=== PATIENT | female | born 1990 | race Two or more races ===

== ENCOUNTER 2024-03-07 10:47 | Emergency (ER) | payer MEDICAID, SELFPAY ==
[2024-03-07 11:00] VITALS: BP 115/74; PULSE 105; PULSE 83; RESP 18; TEMP 36.8; O2SAT 100; BMI 27.1
--- NOTE | 2024-03-07 11:15 | PD.EDRME ---
Rapid Medical Screening Exam RME Arrival date/time: 03/07/24 10:47 33-year-old female presents emergency department complaints of dizziness and a sensation of the world spinning patient reports this happened to her in the past Chief Complaint: Dizziness Time Seen by Provider: 03/07/24 11:47 Vital signs: Vital Signs Temperature 98.2 F 03/07/24 11:00 Pulse Rate 83 03/07/24 11:00 Respiratory Rate 18 03/07/24 11:00 Blood Pressure 115/74 03/07/24 11:00 Pulse Oximetry (%) 100 03/07/24 11:00 Oxygen Delivery Method Room Air 03/07/24 11:00
[2024-03-07] MEDS: MECLIZINE HCL 25 MG TABLET 50 MG PO (11:19)
[2024-03-07 11:51] LABS: Basophils % (Auto) 0 % (0-2.5); Eosinophils # (Auto) 0.1 Thou/mm3 (0.0-0.5); Eosinophils % (Auto) 2 % (0-10); Hematocrit 38.6 % (36.0-46.0); Hemoglobin 12.3 g/dL (12.0-16.0); Immature Granulocytes % (Auto) 0 % (0-0); Immature Granulocytes Auto 0.01 Thou/mm3 (0.00-0.00); Lymphocytes # (Auto) 1.5 Thou/mm3 (1.0-4.8); Lymphocytes % (Auto) 29 % (10-50); Mean Corpuscular HGB Conc 31.9 g/dl (31.0-37.0); Mean Corpuscular Hemoglobin 25.1 pg (25.0-35.0); Mean Corpuscular Volume 79 fL (80-100); Monocytes # (Auto) 0.3 Thou/mm3 (0.0-0.8); Monocytes % (Auto) 6 % (0-12); Neutrophils # (Auto) 3.3 Thou/mm3 (1.8-7.7); Neutrophils % (Auto) 63 % (37-80); Nucleated Red Blood Cell % 0 /100 WBC (0); Platelet Count 229 Thou/mm3 (140-440); RDW Standard Deviation 38.9 fL (36.4-46.3); Red Blood Count 4.91 Miln/mm3 (4.00-5.20); White Blood Count 5.2 Thou/mm3 (3.6-11.0)
--- NOTE | 2024-03-07 12:00 | EDNOTE_ITS ---
ED Dizzyness RME/HPI General Chief Complaint: Dizziness Stated Complaint: DIZZINESS; HX SEVERE VERTIGO Time Seen by Provider: 03/07/24 11:47 Arrival date/time: 03/07/24 10:47 RME / HPI RME / HPI Narrative: 33-year-old female presents emergency department complaints of dizziness and a sensation of the world spinning patient. Severity of symptoms moderate. Patient has been having this problem for more than 2 years, was seen by multiple specialist, and currently pending open MRI of the head and spine. Patient also complained of right-sided headache severity mild. She is also pending referral to [facility]. Related Data Home Medications ?Medication ?Instructions ?Recorded ?Confirmed albuterol sulfate 90 mcg/actuation 2 puff inhalation Q6H PRN 12/02/18 05/28/21 aerosol inhaler Shortness Of Breath Or Wheezing meclizine 25 mg tablet 25 mg PO BID PRN Dizziness 05/28/21 05/28/21 Previous Rx's ?Medication ?Instructions ?Recorded meclizine 50 mg tablet 50 mg PO BID PRN motion sickness 05/28/21 #14 tabs oxcarbazepine 300 mg tablet 300 mg PO BID #60 tabs 07/17/21 rizatriptan 10 mg disintegrating See Rx Instructions PO .COMPLEX 10/21/22 tablet (Maxalt-PLASTERER FOREMAN) #30 tabs meclizine 25 mg tablet 25 mg PO TID PRN dizziness #14 tabs 10/28/22 ondansetron 4 mg disintegrating 4 mg PO Q8H PRN nausea and 10/28/22 tablet vomiting #10 tabs meclizine 25 mg tablet 25 mg PO QDAY PRN dizziness #20 02/13/23 tabs meclizine 25 mg tablet 25 mg PO QDAY PRN dizziness #20 08/21/23 tabs ibuprofen 600 mg tablet 600 mg PO Q6H #30 tabs 11/01/23 ondansetron 4 mg disintegrating 4 mg PO Q6H PRN nausea and 11/01/23 tablet vomiting #14 tabs scopolamine base 1 mg over 3 days 1 mg topical .Q3Day #10 ea 03/07/24 transdermal patch (Transderm-Scop) Allergies Allergy/AdvReac Type Severity Reaction Status Date / Time ciprofloxacin Allergy Severe RASH Verified 11/28/23 22:02 Review of Systems Review of Systems Narrative Review of Systems: Review of system reviewed and within normal limits except mentioned in HPI ED Exam Narrative Physical exam: VITAL SIGNS: Reviewed. GENERAL APPEARANCE: Alert and interactive, follows commands, no acute distress, HEAD AND FACE: Non-traumatic. ENT: PERRL, pink conjunctivitis, eyelid no trauma, Mucous membrane moist. NECK: Supple, nontender, no nuchal rigidity. CHEST: No tenderness, no crepitus, no paradoxical movement, no retractions. LUNGS: Clear, well ventilated, symmetric, no rales, no wheezing, no ronchi, no stridor, good breath sounds bilaterally. HEART: Regular rate, regular rhythm, no murmur, no gallops. ABDOMEN: Soft, positive bowel sounds, nondistended, no guarding, nontender, no rebound, no masses, RECTAL: Deferred. GENITAL: Deferred. NEUROLOGICAL: Gross motor function intact sensory function intact, Appropriate for age. MUSCULOSKELETAL: low back nontender, full range of motion. EXTREMITIES: Nontender, full range of motion. SKIN: Color pink, dry, no rash, no lacerations, no abrasions, no contusions. LYMPHATICS: Deferred. Course Quality Measures none Orders Category Date Time Status CBC Stat Lab 03/07/24 11:22 Completed Comprehensive Metabolic Panel Stat Lab 03/07/24 11:22 Completed HCG Qualitative,Urine Stat Lab 03/07/24 13:08 Completed UA, C/S IF [Urinalysis, C/S if Indicated] Stat Lab 03/07/24 13:08 Completed Ibuprofen Tab [Motrin Tab] Med 03/07/24 11:59 Discontinued 600 mg PO X1 ONE Meclizine HCl [Antivert] Med 03/07/24 11:15 Discontinued 50 mg PO X1 ONE Scopolamine [Transderm-Scop Patch] Med 03/07/24 11:59 Discontinued 1 mg TOP X1 ONE Vital Signs Vital signs: Vital Signs Temperature 98.2 F 03/07/24 11:00 Pulse Rate 83 03/07/24 11:00 Respiratory Rate 18 03/07/24 11:00 Blood Pressure 115/74 03/07/24 11:00 Pulse Oximetry (%) 100 03/07/24 11:00 Oxygen Delivery Method Room Air 03/07/24 11:00 Dizziness MDM Narrative MDM Narrative:: 33-year-old female presents emergency department complaints of dizziness and a sensation of the world spinning patient. Severity of symptoms moderate. Patient has been having this problem for more than 2 years, was seen by multiple specialist, and currently pending open MRI of the head and spine. Patient also complained of right-sided headache severity mild. She is also pending referral to [facility]. Laboratory workup all came back unremarkable. Patient's was significant scopolamine patch with significant improvement of symptoms. Was also given meclizine. Patient was advised to closely follow-up with PCP in few days. Patient agrees with the plan. Patient does not need CT scan at this time, patient is thoroughly workup including MRI in the past. Which all came back unremarkable. Patient data External records reviewed:: None Clinical information provided by:: none Social determinants that could affect healthcare access:: none Patient has the following chronic illnesses:: History of chronic dizziness and vertigo How is presenting disease/condition affected by chronic disease/condition?: exacerbated by Evaluation data The following diagnostics were reviewed and interpreted by me:: lab results Lab and/or radiology exams considered but not ordered:: None Interpretation Summary: Laboratory workup came back normal, including normal urinalysis Medications / Prescriptions Medications or Prescriptions considered but not ordered:: None Medication administrations:: Medication Administration History Discontinued Medications Ibuprofen (Ibuprofen Tab 600 Mg Tablet) 600 mg PO X1 ONE Stop: 03/07/24 12:00 Last Admin: 03/07/24 12:44 Dose: 600 mg Documented By: POPEYE Meclizine HCl (Meclizine Hcl 25 Mg Tablet) 50 mg PO X1 ONE Stop: 03/07/24 11:16 Last Admin: 03/07/24 11:19 Dose: 50 mg Documented By: POPEYE Scopolamine (Scopolamine 1 Mg Tdsy) 1 mg TOP X1 ONE Stop: 03/07/24 12:00 Last Admin: 03/07/24 12:44 Dose: 1 mg Documented By: POPEYE Scopolamine, meclizine and Motrin Consultations Consultation(s) initiated? (list below): No Diagnosis Dizziness Differential Diagnosis: benign paroxysmal positional vertigo, cerebrovascular accident and other (Dizziness) Most likely diagnosis given after review of the tests above:: Dizziness Admission Indicated Admission indicated?: not indicated Explain why admission is indicated or not indicated:: Stable Admission Request Was there a request for admission?: No Disposition Plan Disposition Plan: Discharge Discharge Attestation Discharge Attestation: Patient condition: Stable Discharge Plan Plan Patient Disposition: HOME (Self Care) Disposition Comment: stable Prescriptions/Referrals Prescriptions/Med Rec: New scopolamine base [Transderm-Scop] 1 mg over 3 days patch 3 day 1 mg topical .Q3Day Qty: 10 0RF No Action albuterol sulfate 90 mcg/actuation HFA aerosol inhaler 2 puff INH Q6H PRN (Reason: Shortness Of Breath Or Wheezing) meclizine 25 mg Tablet 25 mg PO BID PRN (Reason: Dizziness) meclizine 50 mg tablet 50 mg PO BID PRN (Reason: motion sickness) Qty: 14 0RF oxcarbazepine 300 mg tablet 300 mg PO BID Qty: 60 0RF rizatriptan [Maxalt-PLASTERER FOREMAN] 10 mg tablet,disintegrating See Rx Instructions .ROUTE .COMPLEX Qty: 30 0RF Rx Instructions: take 1 tab at onset of headache; if no relief may repeat 1 tab after at least 2 hrs; max = 3 tabs/24 hr meclizine 25 mg tablet 25 mg PO QDAY PRN (Reason: dizziness) Qty: 20 0RF meclizine 25 mg tablet 25 mg PO QDAY PRN (Reason: dizziness) Qty: 20 0RF meclizine 25 mg tablet 25 mg PO TID PRN (Reason: dizziness) Qty: 14 0RF ondansetron 4 mg tablet,disintegrating 4 mg PO Q8H PRN (Reason: nausea and vomiting) Qty: 10 0RF ibuprofen 600 mg tablet 600 mg PO Q6H Qty: 30 0RF ondansetron 4 mg tablet,disintegrating 4 mg PO Q6H PRN (Reason: nausea and vomiting) Qty: 14 0RF Referrals: Sushila Valdez PA-C [Primary Care Provider] - In 1 week Problem List Clinical Impression: Dizziness Patient/Caregiver Discharge Instructions Discharge Activity: activity as tolerated Education Materials: ED Dizziness, Uncertain Cause Additional Instructions: Thank you for the opportunity for serving you today. You are stable for discharged . You are advised to: Follow-up with your PCP in 1 to 2 days Return to ED for worsening of symptoms Increase oral fluids Take medication as prescribed Print Language: Divehi Stand Alone Forms: Graciela Award Info., Patient Portal Info Letter ISABEL/JANEE Supervising Physician ISABEL/JANEE Supervising Physician: MD Kirk
[2024-03-07 12:12] LABS: Alanine Aminotransferase 12 U/L (10-49); Albumin/Globulin Ratio 1.6 (1.2-2.2); Alkaline Phosphatase 85 U/L (46-116); Anion Gap 10 (7-16); Aspartate Amino Transferase 19 U/L (0-34); BUN/Creatinine Ratio 17 Ratio (12-20); Bilirubin,Total 0.5 mg/dL (0.3-1.2); Blood Urea Nitrogen 12 mg/dL (9-23); Calcium 9.8 mg/dL (8.3-10.6); Calcium (Corrected) 9.8 mg/dL (8.5-10.1); Carbon Dioxide 24.3 mMol/L (20.0-31.0); Chloride 103 mMol/L (98-107); Creatinine (Component) 0.7 mg/dL (0.6-1.3); Globulin 3.1 gm/dL (2.3-3.5); Glucose 90 mg/dL (74-106); Osmolality,Calculated 273 (275-295); Potassium 3.9 mMol/L (3.4-5.1); Sodium 137 mMol/L (136-145); Total Protein 8.1 gm/dL (5.7-8.2); eGFR > 60 See Note
[2024-03-07] MEDS: SCOPOLAMINE 1 MG TDSY TOP (12:44)
[2024-03-07] MEDS: IBUPROFEN TAB 600 MG TABLET PO (12:44)
[2024-03-07 13:14] LABS: Collection Type, Urine Clean Catch
[2024-03-07 13:19] LABS: HCG Qualitative,Urine Negative
[2024-03-07 13:27] LABS: Bacteria,Urine Rare; Bilirubin,Urine Negative (Negative); Blood,Urine Trace (Negative); Clarity,Urine Clear (Clear/Hazy); Color,Urine Colorless (Lt Yel-Yel); Culture Indicated,Urine Not Indicated; Glucose, Urine Negative (Negative); Ketones,Urine Negative (Negative); Leukocyte Esterase,Urine Positive (Negative); Nitrite,Urine Negative (Negative); PH,Urine 7.5 (5.0-7.0); Protein,Urine Negative (Neg - Trace); RBC,Urine 1 /hpf (0-3); Specific Gravity,Urine 1.008 (1.001-1.035); Squamous Epithelial Cell,Urine 4 /hpf (0-5); Urobilinogen,Urine Negative mg/dL (0.0-1.0); WBC,Urine < 1 /hpf (0-5)
== END 2024-03-07 15:00 | disposition home or self-care (01) ==
PROVIDERS: Nurse Practitioner Primary Care; Emergency Provider Emergency Medicine; PCP Physician Assistant
DX: R42 Dizziness and giddiness (principal)
CPT/HCPCS: 36415; 80053; 81001; 81025; 85025; 99283; A9270

== ENCOUNTER 2024-04-02 12:20 | Emergency (ER) | payer MEDICAID, SELFPAY ==
[2024-04-02 12:21] VITALS: BMI 27.4
[2024-04-02 12:35] VITALS: BP 117/78; PULSE 85; RESP 17; TEMP 37.2; O2SAT 100
--- NOTE | 2024-04-02 12:42 | PD.EDRME ---
Rapid Medical Screening Exam RME Arrival date/time: 04/02/24 12:20 33-year-old female presents to the emergency department today for complaints of dizziness patient has multiple visits for dizziness in the past and patient has follow-up with her primary care doctor as well patient reports MRI is still pending patient reports that she is quite dizzy Chief Complaint: Dizziness Vital signs: Vital Signs Temperature 98.9 F 04/02/24 12:35 Pulse Rate 85 04/02/24 12:35 Respiratory Rate 17 04/02/24 12:35 Blood Pressure 117/78 04/02/24 12:35 Pulse Oximetry (%) 100 04/02/24 12:35 Oxygen Delivery Method Room Air 04/02/24 12:35
[2024-04-02] MEDS: MECLIZINE HCL 25 MG TABLET PO (12:46)
[2024-04-02] MEDS: ALPRazoLAM 0.25 MG TABLET PO (12:46)
[2024-04-02 13:17] LABS: Collection Type, Urine Clean Catch
[2024-04-02 13:29] LABS: Basophils % (Auto) 0 % (0-2.5); Eosinophils # (Auto) 0.1 Thou/mm3 (0.0-0.5); Eosinophils % (Auto) 1 % (0-10); Hematocrit 34.7 % (36.0-46.0); Hemoglobin 11.1 g/dL (12.0-16.0); Immature Granulocytes % (Auto) 1 % (0-0); Immature Granulocytes Auto 0.03 Thou/mm3 (0.00-0.00); Lymphocytes # (Auto) 1.3 Thou/mm3 (1.0-4.8); Lymphocytes % (Auto) 22 % (10-50); Mean Corpuscular Hemoglobin 24.9 pg (25.0-35.0); Mean Corpuscular Volume 78 fL (80-100); Monocytes # (Auto) 0.4 Thou/mm3 (0.0-0.8); Monocytes % (Auto) 6 % (0-12); Neutrophils # (Auto) 4.4 Thou/mm3 (1.8-7.7); Neutrophils % (Auto) 71 % (37-80); Nucleated Red Blood Cell % 0 /100 WBC (0); Platelet Count 196 Thou/mm3 (140-440); RDW Standard Deviation 38.9 fL (36.4-46.3); Red Blood Count 4.45 Miln/mm3 (4.00-5.20); White Blood Count 6.2 Thou/mm3 (3.6-11.0)
[2024-04-02 13:29] LABS: Bacteria,Urine Rare; Bilirubin,Urine Negative (Negative); Blood,Urine 2+ (Negative); Clarity,Urine Clear (Clear/Hazy); Color,Urine Lt-Yellow (Lt Yel-Yel); Culture Indicated,Urine Not Indicated; Glucose, Urine Negative (Negative); Hyaline Casts,Urine < 1 /hpf (0-1); Ketones,Urine Negative (Negative); Leukocyte Esterase,Urine Positive (Negative); Nitrite,Urine Negative (Negative); Protein,Urine Negative (Neg - Trace); RBC,Urine 14 /hpf (0-3); Specific Gravity,Urine 1.019 (1.001-1.035); Squamous Epithelial Cell,Urine 4 /hpf (0-5); Urobilinogen,Urine Negative mg/dL (0.0-1.0); WBC,Urine 3 /hpf (0-5)
[2024-04-02 13:33] LABS: HCG Qualitative,Urine Negative
[2024-04-02 13:54] LABS: Alanine Aminotransferase 11 U/L (10-49); Albumin, Serum 4.7 gm/dL (3.5-5.0); Albumin/Globulin Ratio 1.6 (1.2-2.2); Alkaline Phosphatase 81 U/L (46-116); Anion Gap 9 (7-16); Aspartate Amino Transferase 11 U/L (0-34); BUN/Creatinine Ratio 17 Ratio (12-20); Bilirubin,Total 0.4 mg/dL (0.3-1.2); Blood Urea Nitrogen 12 mg/dL (9-23); Calcium 9.4 mg/dL (8.3-10.6); Calcium (Corrected) 9.4 mg/dL (8.5-10.1); Carbon Dioxide 22.8 mMol/L (20.0-31.0); Chloride 105 mMol/L (98-107); Creatinine (Component) 0.7 mg/dL (0.6-1.3); Estimated Creatinine Clearance 111.6 mL/min (>60); Globulin 2.9 gm/dL (2.3-3.5); Glucose 95 mg/dL (74-106); Osmolality,Calculated 273 (275-295); Potassium 3.8 mMol/L (3.4-5.1); Sodium 137 mMol/L (136-145); Total Protein 7.6 gm/dL (5.7-8.2); eGFR > 60 See Note
[2024-04-02 15:10] VITALS: BP 119/79; PULSE 95; RESP 18; TEMP 36.8; O2SAT 100
--- NOTE | 2024-04-02 16:12 | PD.EDADULT ---
ED General RME/HPI General Chief complaint: Dizziness Stated complaint: LIGHT HEADED/DIZZY x 3 DAYS, REZA TODAY x 1 HOUR Time Seen by Provider: 04/02/24 16:07 Arrival date/time: 04/02/24 12:20 CC: Dizziness HPI ongoing for the past 3 days patient has been here recently for the same complaint. Patient states she has had dizziness also last year which went away. The patient states she is been referred by her PCP to neurologist however she needs an MRI. The patient states she has no active nausea or vomiting patient is holding her head very still stating that she moves to the left of the right then she gets wobbly legs , patient denies any recent falls. Patient is awake alert anxious nontoxic-appearing not in any acute distress. RME / HPI RME / HPI narrative: 04/02/24 12:20 33-year-old female presents to the emergency department today for complaints of dizziness patient has multiple visits for dizziness in the past and patient has follow-up with her primary care doctor as well patient reports MRI is still pending patient reports that she is quite dizzy Related Data Home Medications ?Medication ?Instructions ?Recorded ?Confirmed albuterol sulfate 90 mcg/actuation 2 puff inhalation Q6H PRN 12/02/18 05/28/21 aerosol inhaler Shortness Of Breath Or Wheezing meclizine 25 mg tablet 25 mg PO BID PRN Dizziness 05/28/21 05/28/21 Previous Rx's ?Medication ?Instructions ?Recorded meclizine 50 mg tablet 50 mg PO BID PRN motion sickness 05/28/21 #14 tabs oxcarbazepine 300 mg tablet 300 mg PO BID #60 tabs 07/17/21 rizatriptan 10 mg disintegrating See Rx Instructions PO .COMPLEX 10/21/22 tablet (Maxalt-CIGARETTE MAKING EXAMINER) #30 tabs meclizine 25 mg tablet 25 mg PO TID PRN dizziness #14 tabs 10/28/22 ondansetron 4 mg disintegrating 4 mg PO Q8H PRN nausea and 10/28/22 tablet vomiting #10 tabs meclizine 25 mg tablet 25 mg PO QDAY PRN dizziness #20 02/13/23 tabs meclizine 25 mg tablet 25 mg PO QDAY PRN dizziness #20 08/21/23 tabs ibuprofen 600 mg tablet 600 mg PO Q6H #30 tabs 11/01/23 ondansetron 4 mg disintegrating 4 mg PO Q6H PRN nausea and 11/01/23 tablet vomiting #14 tabs scopolamine base 1 mg over 3 days 1 mg topical .Q3Day #10 ea 03/07/24 transdermal patch (Transderm-Scop) Allergies Allergy/AdvReac Type Severity Reaction Status Date / Time ciprofloxacin Allergy Severe RASH Verified 04/03/24 08:27 Review of Systems Review of Systems Narrative Review of Systems: GEN: No fever, no chills, no weight loss EYES: No discharge, no visual changes, no pain HEENT: No ear pain, no congestion, no sore throat PULM: No shortness of breath, no cough, no congestion CV: No chest pain, no dyspnea on exertion, no palpitations GI: No nausea, no vomiting, no diarrhea, no pain, no constipation : No frequency, no urgency, no dysuria MUSC/SKEL: No joint pain, no back pain SKIN: No rash PSYCH: No hallucinations, no depression HEME/LYMPH: No easy bleeding or bruising tendencies NEURO: No weakness, no headache,+ dizziness Past Medical History Past Medical History NEUROLOGIC: Positive Seizures and Migraine; Negative Neurological Disorders CARDIAC: Negative Cardiac Disorders or Congestive Heart Failure RESPIRATORY: Positive Respiratory Disorders and Asthma; Negative Chronic Obstructive Pulmonary Disease (COPD) GASTROINTESTINAL: Negative Gastrointestinal Disorders GENITOURINARY: Negative Genitourinary Disorders or Renal Disease MUSCULOSKELETAL: Negative Musculoskeletal Disorders ENDOCRINE: Negative Endocrine Disorders, Diabetes Mellitus Type 1 or Diabetes Mellitus Type 2 HEMATOLOGIC: Negative Blood Disorders or Sickle Cell Disease Social History SMOKING STATUS: Never smoker SUBSTANCE USE: does not use ED Exam Narrative Physical exam: [General: Moderate discomfort but not in any acute distress Head Normocephalic HEENT: Eyes: Pupils are PERRLA EOMs are intact subtle left nystagmus. All other subsystems HEENT are within acceptable limits note: Patient complained of photosensitivity when lights were turned on for ocular examination. Neck is supple nontender Chest equal chest rise nontender to palpation Respiratory: Clear to auscultation no wheezes crackles or rubs CV: Rate rhythm is regular no murmurs rubs or clicks Abdomen is flat, soft nontender no masses positive bowel sounds all 4 quadrants Back: No CVA tenderness no spinous process tenderness from cervical spine thoracic and lumbar spine Skin: Intact no petechiae rash induration ulceration or crepitus Extremities: Moving all extremity against resistance cap refill less than 2 seconds neurosensory intact Neuro: Awake alert oriented x3 Glascow coma 15 no focal deficits] Course Quality Measures none Orders Category Date Time Status MRI Screening NOW Care 04/02/24 12:41 Completed Saline [Insert IV] NOW Care 04/02/24 16:13 Completed CBC Stat Lab 04/02/24 13:08 Completed Comprehensive Metabolic Panel Stat Lab 04/02/24 13:08 Completed HCG Qualitative,Urine Stat Lab 04/02/24 13:00 Completed UA, C/S IF [Urinalysis, C/S if Indicated] Stat Lab 04/02/24 13:00 Completed ALPRazoLAM [Xanax] Med 04/02/24 12:41 Discontinued 0.25 mg PO X1 ONE DiphenhydrAMINE INJ [Benadryl Inj] Med 04/02/24 16:16 Discontinued 25 mg IVP X1 ONE Ketorolac Inj [Toradol Inj] Med 04/02/24 16:16 Discontinued 15 mg IVP X1 ONE LORazepam [Ativan Inj] Med 04/02/24 16:13 Discontinued 1 mg IVP X1 ONE Meclizine HCl [Antivert] Med 04/02/24 12:41 Discontinued 25 mg PO X1 ONE Prochlorperazine Inj [Compazine Inj] Med 04/02/24 16:30 Discontinued 10 mg IV X1 ONE Vital Signs Vital signs: Vital Signs Temperature 98.9 F 04/02/24 12:35 Pulse Rate 85 04/02/24 12:35 Respiratory Rate 17 04/02/24 12:35 Blood Pressure 117/78 04/02/24 12:35 Pulse Oximetry (%) 100 04/02/24 12:35 Oxygen Delivery Method Room Air 04/02/24 12:35 [facility] Patient data External records reviewed:: [facility] previous records Clinical information provided by:: patient Social determinants that could affect healthcare access:: none Patient has the following chronic illnesses:: Recurrent vertigo How is presenting disease/condition affected by chronic disease/condition?: exacerbated by Evaluation data The following diagnostics were reviewed and interpreted by me:: lab results and radiology exam(s) Lab and/or radiology exams considered but not ordered:: CBC shows no leukocytosis, H&H 11 and 34 respectively no thrombocytopenia CMP shows no acute electrolyte imbalances renal impairment transaminitis or T. bili elevation. Urine is unremarkable. Interpretation Summary: Per report from the nurse the patient had oral antianxiety was offered MRI once but declined stating she was anxious, the patient has been since waiting for the another 3 hours for MRI to be available at 7 PM MRI is no longer bed patient will be discharged for outpatient MRI or she can return in the morning for repeat MRI of the brain. Medications Medications considered but not ordered:: None Medication administrations:: Medication Administration History Discontinued Medications Alprazolam (Alprazolam 0.25 Mg Tablet) 0.25 mg PO X1 ONE Stop: 04/02/24 12:42 Last Admin: 04/02/24 12:46 Dose: 0.25 mg Documented By: DB Diphenhydramine HCl (Diphenhydramine Inj 50 Mg/Ml Vial) 25 mg IVP X1 ONE Stop: 04/02/24 16:17 Last Admin: 04/02/24 17:50 Dose: Not Given Documented By: TM Non-Admin Reason: Patient Refused Ketorolac Tromethamine (Ketorolac Inj 30 Mg/Ml Vial) 15 mg IVP X1 ONE Stop: 04/02/24 16:17 Last Admin: 04/02/24 17:49 Dose: Not Given Documented By: TM Non-Admin Reason: Patient Refused Lorazepam (Lorazepam 2 Mg/Ml Vial) 1 mg IVP X1 ONE Stop: 04/02/24 16:14 Last Admin: 04/02/24 19:00 Dose: Not Given Documented By: TM Non-Admin Reason: Cancelled by Provider Meclizine HCl (Meclizine Hcl 25 Mg Tablet) 25 mg PO X1 ONE Stop: 04/02/24 12:42 Last Admin: 04/02/24 12:46 Dose: 25 mg Documented By: MARK Prochlorperazine Edisylate (Prochlorperazine Inj 5 Mg/Ml Vial 2 Ml) 10 mg IV X1 ONE; Protocol Stop: 04/02/24 16:31 Last Admin: 04/02/24 17:55 Dose: Not Given Documented By: TM Non-Admin Reason: Patient Refused None Consultations Consultation(s) initiated? (list below): No Diagnosis Differential Diagnosis ED Complaint MDM: Vertigo M?ni?re syndrome somatizations Most likely diagnosis given after review of the tests above:: Vertigo Admission Indicated Admission indicated?: not indicated Explain why admission is indicated or not indicated:: Stable for discharge Admission Request Was there a request for admission?: No Disposition Plan Disposition Plan: Discharge Discharge Attestation Discharge Attestation: The patient and all family members were given an opportunity to ask questions and understood the discharge instructions. Discharge instructions specifically effects, indications for sooner follow up or return to the emergency department, and the expected course of current diagnosis. Patient condition: Stable Medical Decision Making Differential Diagnosis Differential Diagnosis: Vertigo M?ni?re syndrome somatizations Lab Data 04/02/24 13:08 04/02/24 13:08 Labs: Lab Results 04/02/24 04/02/24 Range/Units 13:00 13:08 WBC 6.2 (3.6-11.0) Thou/mm3 RBC 4.45 (4.00-5.20) Miln/mm3 Hgb 11.1 L (12.0-16.0) g/dL Hct 34.7 L (36.0-46.0) % MCV 78 L (80-100) fL MCH 24.9 L (25.0-35.0) pg MCHC 32.0 (31.0-37.0) g/dl RDW Std Deviation 38.9 (36.4-46.3) fL Plt Count 196 D (140-440) Thou/mm3 Neut % (Auto) 71 (37-80) % Lymph % (Auto) 22 (10-50) % [place] % (Auto) 6 (0-12) % Eos % (Auto) 1 (0-10) % Baso % (Auto) 0 (0-2.5) % Neut # (Auto) 4.4 (1.8-7.7) Thou/mm3 Lymph # (Auto) 1.3 (1.0-4.8) Thou/mm3 [place] # (Auto) 0.4 (0.0-0.8) Thou/mm3 Eos # (Auto) 0.1 (0.0-0.5) Thou/mm3 Baso # (Auto) 0.0 (0.0-0.2) Thou/mm3 Immature Gran # (Auto) 0.03 H (0.00-0.00) Thou/mm3 Absolute Nucleated RBC 0.00 (0.00-0.00) Thou/mm3 Immature Gran % 1 H (0-0) % Nucleated RBC % 0 (0) /100 WBC Sodium 137 (136-145) mMol/L Potassium 3.8 (3.4-5.1) mMol/L Chloride 105 (98-107) mMol/L Carbon Dioxide 22.8 (20.0-31.0) mMol/L Anion Gap 9 (7-16) BUN 12 (9-23) mg/dL Creatinine 0.7 (0.6-1.3) mg/dL Estim Creat Clear Calc 111.6 (>60) mL/min eGFR > 60 (60 - ) See Note BUN/Creatinine Ratio 17 (12-20) Ratio Glucose 95 (74-106) mg/dL Calculated Osmolality 273 L (275-295) Calcium 9.4 (8.3-10.6) mg/dL Corrected Calcium 9.4 (8.5-10.1) mg/dL Total Bilirubin 0.4 (0.3-1.2) mg/dL AST 11 (0-34) U/L ALT 11 (10-49) U/L Alkaline Phosphatase 81 (46-116) U/L Total Protein 7.6 (5.7-8.2) gm/dL Albumin 4.7 (3.5-5.0) gm/dL Globulin 2.9 (2.3-3.5) gm/dL Albumin/Globulin Ratio 1.6 (1.2-2.2) Ur Collection Type Clean Catch Urine Color Lt-Yellow (Lt Yel-Yel) Urine Clarity Clear (Clear/Hazy) Urine pH 8.0 H (5.0-7.0) Ur Specific Griffith 1.019 (1.001-1.035) Urine Protein Negative (Neg - Trace) Urine Glucose (UA) Negative (Negative) Urine Ketones Negative (Negative) Urine Blood 2+ A (Negative) Urine Nitrite Negative (Negative) Urine Bilirubin Negative (Negative) Urine Urobilinogen (Auto) Negative (0.0-1.0) mg/dL Ur Leukocyte Esterase Positive (Negative) Urine RBC 14 H (0-3) /hpf Urine WBC 3 (0-5) /hpf Ur Squamous Epith Cells 4 (0-5) /hpf Urine Bacteria Rare (None) Hyaline Casts < 1 (0-1) /hpf Ur Culture Indicated? Not Indicated Urine HCG, Qual Negative Discharge Plan Plan Patient Disposition: HOME (Self Care) Patient condition on transfer: Stable Prescriptions/Referrals Prescriptions/Med Rec: No Action albuterol sulfate 90 mcg/actuation HFA aerosol inhaler 2 puff INH Q6H PRN (Reason: Shortness Of Breath Or Wheezing) meclizine 25 mg Tablet 25 mg PO BID PRN (Reason: Dizziness) meclizine 50 mg tablet 50 mg PO BID PRN (Reason: motion sickness) Qty: 14 0RF oxcarbazepine 300 mg tablet 300 mg PO BID Qty: 60 0RF rizatriptan [Maxalt-CIGARETTE MAKING EXAMINER] 10 mg tablet,disintegrating See Rx Instructions .ROUTE .COMPLEX Qty: 30 0RF Rx Instructions: take 1 tab at onset of headache; if no relief may repeat 1 tab after at least 2 hrs; max = 3 tabs/24 hr meclizine 25 mg tablet 25 mg PO QDAY PRN (Reason: dizziness) Qty: 20 0RF meclizine 25 mg tablet 25 mg PO QDAY PRN (Reason: dizziness) Qty: 20 0RF meclizine 25 mg tablet 25 mg PO TID PRN (Reason: dizziness) Qty: 14 0RF ondansetron 4 mg tablet,disintegrating 4 mg PO Q8H PRN (Reason: nausea and vomiting) Qty: 10 0RF ibuprofen 600 mg tablet 600 mg PO Q6H Qty: 30 0RF ondansetron 4 mg tablet,disintegrating 4 mg PO Q6H PRN (Reason: nausea and vomiting) Qty: 14 0RF scopolamine base [Transderm-Scop] 1 mg over 3 days patch 3 day 1 mg topical .Q3Day Qty: 10 0RF Referrals: Sushila Valdez PA-C [Primary Care Provider] - In 1 week Problem List Clinical Impression: Vertigo Patient/Caregiver Discharge Instructions Other Activity Instructions:: Continue take medications for vertigo, MRI is no longer available this evening and you may return tomorrow and attempt to get MRI of the brain or you can follow-up with an outpatient referral. Education Materials: ED Dizziness, Uncertain Cause Print Language: Andorran Stand Alone Forms: Graciela Award Info., Work/School Release, Patient Portal Info Letter ISABEL/JANEE Supervising Physician TONIA Supervising Physician: Abdullahi Puente ENP
--- NOTE | 2024-04-02 16:19 | PC.NURSE ---
Pt reports that she has had the dizziness for a long time, has attempted MRI out patient several times unsuccessfully. today she received Xanax prior to going to MRI, pt was unable to tolerate MRI per financial services technician. This RN called MRI at [phone] multiple times with no answer, to see about getting pt over there with IV medication.
[2024-04-02 17:37] VITALS: BP 111/69; PULSE 68; RESP 16; TEMP 36.8; O2SAT 100
--- NOTE | 2024-04-02 18:20 | PC.NURSE ---
Called MRI multiple times left voicemail, called datawarehouse developer to call senior application security consultant MRI.
--- NOTE | 2024-04-02 20:06 | PC.NURSE ---
1999 PT RETURNED STATING SHE WAS IN PAIN AND WAS THAT HER EYES WERE TWICHING. I ASKED HER TO OPEN HER EYES AND THEY WERE NOT MOVING OR TWITCHING. SHE STATED SHE WAS NOW IN PAIN AND ALL THESE SYMPTOMS STARTED AFTER SHE LEFT I EXPLAINED TO HER AND FAMILY THAT SHE HAD REFUSED PAIN MEDICINE AND MRI WHEN IT WAS OFFERED. PT WAS SCREAMING AND YELLING IN THE FRONT LOBBY WHEN SHE ARRIVED. I EXPLAINED TO HER THAT SHE WOULD HAVE TO CHECK IN AGAIN TO BE SEEN. PER TRIAGE NURSE CRYS PT LEFT STATING THEY WERE GOING TO [facility]
== END 2024-04-02 19:12 | disposition home or self-care (01) ==
PROVIDERS: Nurse Practitioner Primary Care; Emergency Provider Emergency Medicine; PCP Physician Assistant
DX: R42 Dizziness and giddiness (principal)
CPT/HCPCS: 36415; 80053; 81001; 81025; 85025; 99284; A9270

== ENCOUNTER 2024-04-03 08:25 | Emergency (ER) | payer MEDICAID, SELFPAY ==
[2024-04-03 09:27] VITALS: BP 120/71; PULSE 76; RESP 17; TEMP 37.2; O2SAT 100; BMI 130.1
--- NOTE | 2024-04-03 10:07 | PC.NURSE ---
PT CAME TO TRIAGE DESK AFTER SENT TO THE LOBBY TO WAIT. STATES I DON'T WANT TO WAIT. IT'S TAKING TOO LONG. I'LL GO SOMEWHERE ELSE. SIGNED AMA FORM
== END 2024-04-03 10:07 | disposition left against medical advice (07) ==
LOC: SERX 10:11
PROVIDERS: Emergency Provider Emergency Medicine
DX: Z53.21 Procedure and treatment not carried out due to patient leaving prior to being seen by health care provider (principal)
CPT/HCPCS: 99281

== ENCOUNTER 2024-04-12 13:50 | Emergency (ER) | payer MEDICAID, SELFPAY ==
[2024-04-12 13:50] VITALS: BMI 27.4
[2024-04-12 14:01] VITALS: BP 121/82; PULSE 90; RESP 18; TEMP 36.3; O2SAT 100
--- NOTE | 2024-04-12 14:11 | EDRME_ITS ---
Rapid Medical Screening Exam RME Arrival date/time: 04/12/24 13:50 33-year-old female presents to the emergency department complaints of dizziness patient for symptoms ongoing for last couple of years patient is been seeing multiple specialist and recently had a 2-day stay at [facility] In addition to the dizziness patient reports pelvic pain with history of ovarian cyst Chief Complaint: Abdominal Pain Time Seen by Provider: 04/12/24 13:59 Vital signs: Vital Signs Temperature 97.4 F 04/12/24 14:01 Pulse Rate 90 04/12/24 14:01 Respiratory Rate 18 04/12/24 14:01 Blood Pressure 121/82 04/12/24 14:01 Pulse Oximetry (%) 100 04/12/24 14:01 Oxygen Delivery Method Room Air 04/12/24 14:01
--- NOTE | 2024-04-12 14:11 | XR_ITS ---
Examination: Pelvic ultrasound, transabdominal, complete Technique: Transabdominal ultrasound of the pelvis performed using grayscale imaging Date and time of exam: April 12, 2024 1553 hrs. Indications: Intermittent pelvic pain beginning 2 days ago Findings: Uterus 9.6 x 5.0 x 5.8 cm No uterine mass or intrauterine gestation Endometrial stripe 0.3 cm Right ovary 3.7 x 2.7 x 2.7 cm arterial flow Left ovary 4.2 x 3.4 x 3.6 cm arterial flow, 26 x 19 mm cyst Impression: No uterine mass or intrauterine gestation Left ovarian simple cyst 26 x 19 x 16 mm
--- NOTE | 2024-04-12 14:16 | EDNOTE_ITS ---
ED Abdominal Pain RME/HPI General Chief Complaint: Abdominal Pain Stated complaint: LEFT ABD PAIN x 2 DAYS, DIZZY ON/OFF x 7 DAYS Time seen by provider: 04/12/24 13:59 Arrival date/time: 04/12/24 13:50 RME / HPI RME / HPI narrative: 32-year-old female patient with significant history of chronic dizziness and vertigo, seizure disorder, was brought in by EMS for evaluation regarding left pelvic pain. Onset of symptoms for the last 2 days, described as dull ache, severity moderate. Patient also complained of on and off dizziness for the last 7 days, described as everything spinning, severity moderate. Patient was seen at [facility], stayed there for 2 days and they cannot find anything wrong. Patient was referred to vestibular specialist, pending to be seen. Denies any fever denies any vomiting. Related Data Home Medications ?Medication ?Instructions ?Recorded ?Confirmed albuterol sulfate 90 mcg/actuation 2 puff inhalation Q6H PRN 12/02/18 05/28/21 aerosol inhaler Shortness Of Breath Or Wheezing meclizine 25 mg tablet 25 mg PO BID PRN Dizziness 05/28/21 05/28/21 Previous Rx's ?Medication ?Instructions ?Recorded meclizine 50 mg tablet 50 mg PO BID PRN motion sickness 05/28/21 #14 tabs oxcarbazepine 300 mg tablet 300 mg PO BID #60 tabs 07/17/21 rizatriptan 10 mg disintegrating See Rx Instructions PO .COMPLEX 10/21/22 tablet (Maxalt-MAT[employer] SCIENTIST) #30 tabs meclizine 25 mg tablet 25 mg PO TID PRN dizziness #14 tabs 10/28/22 ondansetron 4 mg disintegrating 4 mg PO Q8H PRN nausea and 10/28/22 tablet vomiting #10 tabs meclizine 25 mg tablet 25 mg PO QDAY PRN dizziness #20 02/13/23 tabs meclizine 25 mg tablet 25 mg PO QDAY PRN dizziness #20 08/21/23 tabs ibuprofen 600 mg tablet 600 mg PO Q6H #30 tabs 11/01/23 ondansetron 4 mg disintegrating 4 mg PO Q6H PRN nausea and 11/01/23 tablet vomiting #14 tabs scopolamine base 1 mg over 3 days 1 mg topical .Q3Day #10 ea 12/06/24 transdermal patch (Transderm-Scop) alprazolam 0.5 mg tablet (Xanax) 0.5 mg PO BID PRN anxiety #14 tabs 04/12/24 Allergies Allergy/AdvReac Type Severity Reaction Status Date / Time ciprofloxacin Allergy Severe RASH Verified 04/12/24 13:52 Review of Systems Review of Systems Narrative Review of Systems: Review of system reviewed and within normal limits except mentioned in HPI ED Exam Narrative Physical exam: VITAL SIGNS: Reviewed. GENERAL APPEARANCE: Alert and interactive, follows commands, no acute distress, HEAD AND FACE: Non-traumatic. ENT: PERRL, pink conjunctivitis, eyelid no trauma, Mucous membrane moist. NECK: Supple, nontender, no nuchal rigidity. CHEST: No tenderness, no crepitus, no paradoxical movement, no retractions. LUNGS: Clear, well ventilated, symmetric, no rales, no wheezing, no ronchi, no stridor, good breath sounds bilaterally. HEART: Regular rate, regular rhythm, no murmur, no gallops. ABDOMEN: Soft, positive bowel sounds, nondistended, no guarding, nontender, no rebound, no masses, RECTAL: Deferred. GENITAL: Deferred. NEUROLOGICAL: Gross motor function intact sensory function intact, Appropriate for age. MUSCULOSKELETAL: low back nontender, full range of motion. EXTREMITIES: Nontender, full range of motion. SKIN: Color pink, dry, no rash, no lacerations, no abrasions, no contusions. LYMPHATICS: Deferred. Course Quality Measures none Orders Category Date Time Status Insert IV NOW Care 04/12/24 14:11 Active US pelvic complete Stat Exams 04/12/24 14:11 Completed CBC Stat Lab 04/12/24 14:32 Completed Comprehensive Metabolic Panel Stat Lab 04/12/24 14:32 Completed HCG Qualitative,Urine Stat Lab 04/12/24 14:31 Completed Lipase Stat Lab 04/12/24 14:32 Completed UA, C/S IF [Urinalysis, C/S if Indicated] Stat Lab 04/12/24 14:31 Completed Diazepam Inj [Valium Inj] Med 04/12/24 14:32 Discontinued 5 mg IVP X1 ONE LORazepam [Ativan Inj] Med 04/12/24 14:30 Discontinued 1 mg IVP X1 ONE Ondansetron Inj [Zofran Inj] Med 04/12/24 14:30 Discontinued 4 mg IV X1 ONE Sodium Chloride 0.9% 1000 ml [Ns] 1,000 ml Med 04/12/24 14:30 Discontinued IV 999 mls/hr Vital Signs Vital signs: Vital Signs Temperature 97.4 F 04/12/24 14:01 Pulse Rate 90 04/12/24 14:01 Respiratory Rate 18 04/12/24 14:01 Blood Pressure 121/82 04/12/24 14:01 Pulse Oximetry (%) 100 04/12/24 14:01 Oxygen Delivery Method Room Air 04/12/24 14:01 Abdominal Pain MDM MDM Narrative MDM Narrative:: 32-year-old female patient with significant history of chronic dizziness and vertigo, seizure disorder, was brought in by EMS for evaluation regarding left pelvic pain. Onset of symptoms for the last 2 days, described as dull ache, severity moderate. Patient also complained of on and off dizziness for the last 7 days, described as everything spinning, severity moderate. Patient was seen at [facility], stayed there for 2 days and they cannot find anything wrong. Patient was referred to vestibular specialist, pending to be se en. Denies any fever denies any vomiting. Patient's workup today all came back normal. Ultrasound of the pelvis showed pelvic cyst otherwise unremarkable. Patient received IV fluids for hydration, Valium IV, with complete resolution of symptoms. Patient is ambulatory with no recurrence of symptoms. Patient data External records reviewed:: None Clinical information provided by:: patient Social determinants that could affect healthcare access:: none Patient has the following chronic illnesses:: History of chronic intermittent vertigo How is presenting disease/condition affected by chronic disease/condition?: exacerbated by Evaluation data The following diagnostics were reviewed and interpreted by me:: lab results and radiology exam(s) Lab and/or radiology exams considered but not ordered:: None Interpretation Summary: Workup unremarkable. Pelvic ultrasound showed ovarian cyst otherwise unremarkable. Medications / Prescriptions Medications or Prescriptions considered but not ordered:: None Medication administrations:: Medication Administration History Discontinued Medications Diazepam (Diazepam Inj 5 Mg/Ml Vial 2 Ml) 5 mg IVP X1 ONE Stop: 04/12/24 14:33 Last Admin: 04/12/24 14:56 Dose: 5 mg Documented By: ROSE Sodium Chloride (Ns) 1,000 mls @ 999 mls/hr IV .Q1H1M ONE Stop: 04/12/24 15:30 Last Admin: 04/12/24 14:59 Dose: 999 mls/hr Documented By: ROSE Lorazepam (Lorazepam 2 Mg/Ml Vial) 1 mg IVP X1 ONE Stop: 04/12/24 14:31 Last Admin: 04/12/24 14:44 Dose: Not Given Documented By: ROSE Non-Admin Reason: Discontinued Ondansetron HCl (Ondansetron Inj 2 Mg/Ml Inj 2 Ml) 4 mg IV X1 ONE; Protocol Stop: 04/12/24 14:31 Last Admin: 04/12/24 14:58 Dose: 4 mg Documented By: Admin: 04/12/24 14:56 Dose: 4 mg Documented By: ROSE Zofran, IV fluids for hydration and volume Consultations Consultation(s) initiated? (list below): No Diagnosis Differential diagnosis abdominal pain: abdominal pain and other (Pelvic pain, chronic vertigo) Most likely diagnosis given after review of the tests above:: Vertigo, pelvic pain Admission Indicated Admission indicated?: not indicated Explain why admission is indicated or not indicated:: Stable Admission Request Was there a request for admission?: No Disposition Plan Disposition Plan: Discharge Discharge Attestation Discharge Attestation: The patient and all family members were given an opportunity to ask questions and understood the discharge instructions. Discharge instructions specifically effects, indications for sooner follow up or return to the emergency department, and the expected course of current diagnosis. Patient condition: Stable Discharge Plan Plan Patient Disposition: HOME (Self Care) Disposition Comment: stable Prescriptions/Referrals Prescriptions/Med Rec: New alprazolam [Xanax] 0.5 mg tablet 0.5 mg PO BID PRN (Reason: anxiety) Qty: 14 0RF No Action albuterol sulfate 90 mcg/actuation HFA aerosol inhaler 2 puff INH Q6H PRN (Reason: Shortness Of Breath Or Wheezing) meclizine 25 mg Tablet 25 mg PO BID PRN (Reason: Dizziness) meclizine 50 mg tablet 50 mg PO BID PRN (Reason: motion sickness) Qty: 14 0RF oxcarbazepine 300 mg tablet 300 mg PO BID Qty: 60 0RF rizatriptan [Maxalt-MATERIALS SCIENTIST] 10 mg tablet,disintegrating See Rx Instructions .ROUTE .COMPLEX Qty: 30 0RF Rx Instructions: take 1 tab at onset of headache; if no relief may repeat 1 tab after at least 2 hrs; max = 3 tabs/24 hr meclizine 25 mg tablet 25 mg PO QDAY PRN (Reason: dizziness) Qty: 20 0RF meclizine 25 mg tablet 25 mg PO QDAY PRN (Reason: dizziness) Qty: 20 0RF meclizine 25 mg tablet 25 mg PO TID PRN (Reason: dizziness) Qty: 14 0RF ondansetron 4 mg tablet,disintegrating 4 mg PO Q8H PRN (Reason: nausea and vomiting) Qty: 10 0RF ibuprofen 600 mg tablet 600 mg PO Q6H Qty: 30 0RF ondansetron 4 mg tablet,disintegrating 4 mg PO Q6H PRN (Reason: nausea and vomiting) Qty: 14 0RF scopolamine base [Transderm-Scop] 1 mg over 3 days patch 3 day 1 mg topical .Q3Day Qty: 10 0RF Referrals: Sushila Valdez PA-C [Primary Care Provider] - In 1 week Problem List Clinical Impression: Vertigo, Anxiety, Pelvic pain Patient/Caregiver Discharge Instructions Discharge Activity: activity as tolerated Education Materials: ED Anxiety Reaction Additional Instructions: Thank you for the opportunity for serving you today. You are stable for discharged . You are advised to: Follow-up with your PCP in 1 to 2 days Return to ED for worsening of symptoms Increase oral fluids Take medication as prescribed Print Language: Romanian Stand Alone Forms: Graciela Award Info., Patient Portal Info Letter TONIA Supervising Physician TONIA Supervising Physician: MD Ernestine
[2024-04-12 14:41] LABS: Collection Type, Urine Clean Catch; Squamous Epithelial Cell,Urine 0 /hpf (0-5); WBC,Urine 0 /hpf (0-5)
[2024-04-12 14:42] LABS: Basophils % (Auto) 0 % (0-2.5); Eosinophils % (Auto) 1 % (0-10); Hematocrit 37.6 % (36.0-46.0); Hemoglobin 11.9 g/dL (12.0-16.0); Immature Granulocytes % (Auto) 0 % (0-0); Immature Granulocytes Auto 0.02 Thou/mm3 (0.00-0.00); Lymphocytes # (Auto) 1.8 Thou/mm3 (1.0-4.8); Lymphocytes % (Auto) 25 % (10-50); Mean Corpuscular HGB Conc 31.6 g/dl (31.0-37.0); Mean Corpuscular Volume 79 fL (80-100); Monocytes # (Auto) 0.5 Thou/mm3 (0.0-0.8); Monocytes % (Auto) 7 % (0-12); Neutrophils # (Auto) 4.8 Thou/mm3 (1.8-7.7); Neutrophils % (Auto) 67 % (37-80); Nucleated Red Blood Cell % 0 /100 WBC (0); Platelet Count 241 Thou/mm3 (140-440); RDW Standard Deviation 38.9 fL (36.4-46.3); Red Blood Count 4.76 Miln/mm3 (4.00-5.20); White Blood Count 7.1 Thou/mm3 (3.6-11.0)
[2024-04-12 14:51] LABS: HCG Qualitative,Urine Negative
[2024-04-12] MEDS: DIAZEPAM INJ 5 MG/ML VIAL 2 ML IVP (14:56)
[2024-04-12] MEDS: ONDANSETRON INJ 2 MG/ML INJ 2 ML 4 MG IV ×2 (14:56→14:58)
[2024-04-12] MEDS: SODIUM CHLORIDE 0.9% 1000 ML 1,000 ML 999 ML IV (14:59)
[2024-04-12 15:02] LABS: Alanine Aminotransferase 12 U/L (10-49); Albumin, Serum 5.3 gm/dL (3.5-5.0); Albumin/Globulin Ratio 1.7 (1.2-2.2); Alkaline Phosphatase 79 U/L (46-116); Anion Gap 9 (7-16); Aspartate Amino Transferase 15 U/L (0-34); BUN/Creatinine Ratio 20 Ratio (12-20); Bilirubin,Total 0.5 mg/dL (0.3-1.2); Blood Urea Nitrogen 14 mg/dL (9-23); Calcium 9.8 mg/dL (8.3-10.6); Calcium (Corrected) 9.8 mg/dL (8.5-10.1); Carbon Dioxide 23.2 mMol/L (20.0-31.0); Chloride 105 mMol/L (98-107); Creatinine (Component) 0.7 mg/dL (0.6-1.3); Estimated Creatinine Clearance 111.6 mL/min (>60); Globulin 3.2 gm/dL (2.3-3.5); Glucose 95 mg/dL (74-106); Lipase 43 U/L (12-53); Osmolality,Calculated 274 (275-295); Potassium 3.8 mMol/L (3.4-5.1); Sodium 137 mMol/L (136-145); Total Protein 8.5 gm/dL (5.7-8.2); eGFR > 60 See Note
[2024-04-12 15:04] VITALS: BP 100/69; PULSE 69; RESP 18; TEMP 36.9; O2SAT 100
[2024-04-12 15:08] LABS: RBC,Urine 9 /hpf (0-3)
[2024-04-12 15:31] LABS: Bilirubin,Urine Negative (Negative); Blood,Urine 2+ (Negative); Clarity,Urine Clear (Clear/Hazy); Color,Urine Lt Yellow (Lt Yel-Yel); Culture Indicated,Urine Not Indicated; Glucose, Urine Negative (Negative); Ketones,Urine 1+ (Negative); Leukocyte Esterase,Urine Trace (Negative); Nitrite,Urine Negative (Negative); Protein,Urine Negative (Neg - Trace); Specific Gravity,Urine 1.015 (1.001-1.035); Urobilinogen,Urine 0.2 mg/dL (0.0-1.0)
[2024-04-12 17:00] VITALS: BP 110/69; PULSE 71; RESP 15; TEMP 37; O2SAT 100
[2024-04-12 18:29] VITALS: BP 112/64; PULSE 73; RESP 16; TEMP 37.1; O2SAT 100
[2024-04-12 18:34] VITALS: BP 112/64; PULSE 72; RESP 17; TEMP 36.8; O2SAT 100
== END 2024-04-12 18:44 | disposition home or self-care (01) ==
PROVIDERS: Nurse Practitioner Primary Care; Emergency Provider Emergency Medicine; PCP Physician Assistant
DX: R42 Dizziness and giddiness (principal); F41.9 Anxiety disorder, unspecified; R10.2 Pelvic and perineal pain
CPT/HCPCS: 36415; 76856; 80053; 81001; 81025; 83690; 85025; 96374; 99284; J2405; J3360; J7030

== ENCOUNTER 2024-04-20 13:28 | Emergency (ER) | payer MEDICAID, SELFPAY ==
[2024-04-20 14:01] VITALS: BP 123/76; PULSE 93; RESP 18; TEMP 37; O2SAT 100; BMI 25.9
--- NOTE | 2024-04-20 14:16 | PD.EDRME ---
Rapid Medical Screening Exam E Arrival date/time: 04/20/24 13:28 This is a 33 year old female who is here for diarrhea, abdominal cramping, burning with urination and feeling dehydrated. Patient patient states she was previously constipated and on last week took milk of magnesium since then patient has had diarrhea. Patient states that she has been having a large amount of stools and feels dehydrated. Patient brought some of her stool with her and she felt it looked like a bug. Patient does have a history of anxiety has been seen here for dizziness in the past along with anxiety. Patient also has a history of a seizure disorder. Patient reports burning with urination. She reports nausea. I have greeted and performed a focused initial assessment of this patient. Initial appropriate labs ordered at this time. A comprehensive ED assessment and evaluation of the patient and analysis of all test and completion of medical decision making process will be conducted by additional ED provider. Chief Complaint: Nausea/Vomiting/Diarrhea Time Seen by Provider: 04/20/24 14:01 Vital signs: Vital Signs Temperature 98.6 F 04/20/24 14:01 Pulse Rate 93 04/20/24 14:01 Respiratory Rate 18 04/20/24 14:01 Blood Pressure 123/76 04/20/24 14:01 Pulse Oximetry (%) 100 04/20/24 14:01 Oxygen Delivery Method Room Air 04/20/24 14:01
[2024-04-20 14:30] LABS: Collection Type, Urine Voided
[2024-04-20 14:41] LABS: Bacteria,Urine 1+; Bilirubin,Urine Negative (Negative); Blood,Urine 2+ (Negative); Clarity,Urine Turbid (Clear/Hazy); Color,Urine Yellow (Lt Yel-Yel); Culture Indicated,Urine Contaminated; Glucose, Urine Negative (Negative); Ketones,Urine Trace (Negative); Leukocyte Esterase,Urine Positive (Negative); Nitrite,Urine Negative (Negative); Protein,Urine Trace (Neg - Trace); RBC,Urine 25 /hpf (0-3); Specific Gravity,Urine 1.026 (1.001-1.035); Squamous Epithelial Cell,Urine 12 /hpf (0-5); Urobilinogen,Urine Negative mg/dL (0.0-1.0); WBC,Urine 10 /hpf (0-5)
[2024-04-20 15:15] LABS: HCG Qualitative,Urine Negative
[2024-04-20 15:34] LABS: Basophils % (Auto) 0 % (0-2.5); Eosinophils % (Auto) 1 % (0-10); Hemoglobin 12.1 g/dL (12.0-16.0); Immature Granulocytes % (Auto) 0 % (0-0); Immature Granulocytes Auto 0.02 Thou/mm3 (0.00-0.00); Lymphocytes # (Auto) 1.5 Thou/mm3 (1.0-4.8); Lymphocytes % (Auto) 23 % (10-50); Mean Corpuscular HGB Conc 31.8 g/dl (31.0-37.0); Mean Corpuscular Hemoglobin 24.8 pg (25.0-35.0); Mean Corpuscular Volume 78 fL (80-100); Monocytes # (Auto) 0.5 Thou/mm3 (0.0-0.8); Monocytes % (Auto) 8 % (0-12); Neutrophils # (Auto) 4.3 Thou/mm3 (1.8-7.7); Neutrophils % (Auto) 68 % (37-80); Nucleated Red Blood Cell % 0 /100 WBC (0); Platelet Count 194 Thou/mm3 (140-440); RDW Standard Deviation 39.5 fL (36.4-46.3); Red Blood Count 4.87 Miln/mm3 (4.00-5.20); White Blood Count 6.4 Thou/mm3 (3.6-11.0)
[2024-04-20 15:45] LABS: Alanine Aminotransferase 12 U/L (10-49); Albumin, Serum 5.1 gm/dL (3.5-5.0); Albumin/Globulin Ratio 1.5 (1.2-2.2); Alkaline Phosphatase 72 U/L (46-116); Anion Gap 10 (7-16); Aspartate Amino Transferase 15 U/L (0-34); BUN/Creatinine Ratio 18 Ratio (12-20); Bilirubin,Total 0.5 mg/dL (0.3-1.2); Blood Urea Nitrogen 14 mg/dL (9-23); Calcium 10.2 mg/dL (8.3-10.6); Calcium (Corrected) 10.2 mg/dL (8.5-10.1); Carbon Dioxide 24.3 mMol/L (20.0-31.0); Chloride 105 mMol/L (98-107); Creatinine (Component) 0.8 mg/dL (0.6-1.3); Estimated Creatinine Clearance 95.1 mL/min (>60); Globulin 3.3 gm/dL (2.3-3.5); Glucose 85 mg/dL (74-106); Osmolality,Calculated 277 (275-295); Potassium 3.8 mMol/L (3.4-5.1); Sodium 139 mMol/L (136-145); Total Protein 8.4 gm/dL (5.7-8.2); eGFR > 60 See Note
--- NOTE | 2024-04-20 16:27 | EDNOTE_ITS ---
Nausea/Vomit./Diarrhea-RME/HPI General Chief complaint: Nausea/Vomiting/Diarrhea Stated complaint: DIARRHEA X3 DAYS SOMETHING WEIRD CAME OUT Time Seen by Provider: 04/20/24 14:01 Arrival date/time: 04/20/24 13:28 This is a 33 year old female who is here for diarrhea, abdominal cramping, burning with urination and feeling dehydrated. Patient patient states she was previously constipated and on last week took milk of magnesium since then patient has had diarrhea. Patient states that she has been having a large amount of stools and feels dehydrated. Patient brought some of her stool with her and she felt it looked like a bug. Patient does have a history of anxiety has been seen here for dizziness in the past along with anxiety. Patient also has a history of a seizure disorder. Patient reports burning with urination. She reports nausea. RME / HPI RME / HPI Narrative: 04/20/24 13:28 This is a 33 year old female who is here for diarrhea, abdominal cramping, burning with urination and feeling dehydrated. Patient patient states she was previously constipated and on last week took milk of magnesium since then patient has had diarrhea. Patient states that she has been having a large amount of stools and feels dehydrated. Patient brought some of her stool with her and she felt it looked like a bug. Patient does have a history of anxiety has been seen here for dizziness in the past along with anxiety. Patient also has a history of a seizure disorder. Patient reports burning with urination. She reports nausea. I have greeted and performed a focused initial assessment of this patient. Initial appropriate labs ordered at this time. A comprehensive ED assessment and evaluation of the patient and analysis of all test and completion of medical decision making process will be conducted by additional ED provider. Related Data Home Medications ?Medication ?Instructions ?Recorded ?Confirmed albuterol sulfate 90 mcg/actuation 2 puff inhalation Q6H PRN 12/02/18 05/28/21 aerosol inhaler Shortness Of Breath Or Wheezing meclizine 25 mg tablet 25 mg PO BID PRN Dizziness 05/28/21 05/28/21 Previous Rx's ?Medication ?Instructions ?Recorded meclizine 50 mg tablet 50 mg PO BID PRN motion sickness 05/28/21 #14 tabs oxcarbazepine 300 mg tablet 300 mg PO BID #60 tabs 07/17/21 rizatriptan 10 mg disintegrating See Rx Instructions PO .COMPLEX 10/21/22 tablet (Maxalt-[employer] REPRESENTATIVE) #30 tabs meclizine 25 mg tablet 25 mg PO TID PRN dizziness #14 tabs 10/28/22 ondansetron 4 mg disintegrating 4 mg PO Q8H PRN nausea and 10/28/22 tablet vomiting #10 tabs meclizine 25 mg tablet 25 mg PO QDAY PRN dizziness #20 02/13/23 tabs meclizine 25 mg tablet 25 mg PO QDAY PRN dizziness #20 08/21/23 tabs ibuprofen 600 mg tablet 600 mg PO Q6H #30 tabs 11/01/23 ondansetron 4 mg disintegrating 4 mg PO Q6H PRN nausea and 11/01/23 tablet vomiting #14 tabs scopolamine base 1 mg over 3 days 1 mg topical .Q3Day #10 ea 03/07/24 transdermal patch (Transderm-Scop) alprazolam 0.5 mg tablet (Xanax) 0.5 mg PO BID PRN anxiety #14 tabs 04/12/24 Allergies Allergy/AdvReac Type Severity Reaction Status Date / Time ciprofloxacin Allergy Severe RASH Verified 04/20/24 13:30 Review of Systems Review of Systems Systems Reviewed: All systems reviewed, normal except as documented Past Medical History Past Medical History NEUROLOGIC: Positive Seizures and Migraine; Negative Neurological Disorders CARDIAC: Negative Cardiac Disorders or Congestive Heart Failure RESPIRATORY: Positive Respiratory Disorders and Asthma; Negative Chronic Obstructive Pulmonary Disease (COPD) GASTROINTESTINAL: Negative Gastrointestinal Disorders GENITOURINARY: Negative Genitourinary Disorders or Renal Disease MUSCULOSKELETAL: Negative Musculoskeletal Disorders ENDOCRINE: Negative Endocrine Disorders, Diabetes Mellitus Type 1 or Diabetes Mellitus Type 2 HEMATOLOGIC: Negative Blood Disorders or Sickle Cell Disease Social History SMOKING STATUS: Never smoker SUBSTANCE USE: does not use ED Exam General General appearance: Present alert and in no apparent distress Head Head exam: Present atraumatic Eye Eye exam: Present normal appearance, PERRL and EOMI ENT ENT exam: Present normal exam, normal oropharynx and mucous membranes moist Neck Neck exam: Present normal inspection, full ROM and trachea midline Chest Chest inspection: Present normal inspection and symmetric chest wall rise Respiratory Respiratory exam: Present normal lung sounds bilaterally Cardiovascular Cardiovascular exam: Present regular rate, normal rhythm and normal heart sounds Abdominal Exam Abdominal exam: Present soft Extremities Exam Extremities exam: Present normal inspection and full ROM Back Exam Back exam: Present normal inspection and full ROM Neurological Exam Neurological exam: Present alert, oriented X3 and CN II-XII intact Psychiatric Psychiatric exam: Present normal affect and normal mood Skin Skin exam: Present warm, dry, intact and normal color Course Quality Measures none Orders Category Date Time Status CBC Stat Lab 04/20/24 14:54 Completed Comprehensive Metabolic Panel Stat Lab 04/20/24 14:54 Completed HCG Qualitative,Urine Stat Lab 04/20/24 14:16 Completed Urinalysis, C/S if Indicated Stat Lab 04/20/24 14:16 Completed Vital Signs Vital signs: Vital Signs Temperature 98.6 F 04/20/24 14:01 Pulse Rate 93 04/20/24 14:01 Respiratory Rate 18 04/20/24 14:01 Blood Pressure 123/76 04/20/24 14:01 Pulse Oximetry (%) 100 04/20/24 14:01 Oxygen Delivery Method Room Air 04/20/24 14:01 Nausea/Vomiting/Diarrhea MDM Narrative MDM Narrative:: Labs reviewed patient CBC unremarkable BNP unremarkable urine positive for UTI. Will treat. Will send for urine culture. Patient told to follow-up with primary provider in 1 to 2 days. Come back to the emergency room if symptoms change or worsen. Patient data External records reviewed:: [facility] previous records Clinical information provided by:: patient Social determinants that could affect healthcare access:: none Patient has the following chronic illnesses:: see hpi How is presenting disease/condition affected by chronic disease/condition?: exacerbated by Evaluation data The following diagnostics were reviewed and interpreted by me:: lab results Lab and/or radiology exams considered but not ordered:: See note Interpretation Summary: See note Medications / Prescriptions Medications / Prescriptions considered but not ordered:: None Medication administrations:: None Consultations Consultation(s) initiated? (list below): No Diagnosis Nausea Differential Diagnosis: traveler's diarrhea, food poisoning, drug-induced nausea and vomiting, dehydration and other (uti) Most likely diagnosis given after review of the tests above:: UTI Admission Indicated Admission indicated?: not indicated Admission Request Was there a request for admission?: No Disposition Plan Disposition Plan: Discharge Discharge Attestation Discharge Attestation: The patient and all family members were given an opportunity to ask questions and understood the discharge instructions. Discharge instructions specifically effects, indications for sooner follow up or return to the emergency department, and the expected course of current diagnosis. Patient condition: Stable Discharge Plan Plan Patient Disposition: HOME (Self Care) Patient condition on transfer: Stable Prescriptions/Referrals Prescriptions/Med Rec: No Action albuterol sulfate 90 mcg/actuation HFA aerosol inhaler 2 puff INH Q6H PRN (Reason: Shortness Of Breath Or Wheezing) meclizine 25 mg Tablet 25 mg PO BID PRN (Reason: Dizziness) meclizine 50 mg tablet 50 mg PO BID PRN (Reason: motion sickness) Qty: 14 0RF oxcarbazepine 300 mg tablet 300 mg PO BID Qty: 60 0RF rizatriptan [Maxalt-[employer] REPRESENTATIVE] 10 mg tablet,disintegrating See Rx Instructions .ROUTE .COMPLEX Qty: 30 0RF Rx Instructions: take 1 tab at onset of headache; if no relief may repeat 1 tab after at least 2 hrs; max = 3 tabs/24 hr meclizine 25 mg tablet 25 mg PO QDAY PRN (Reason: dizziness) Qty: 20 0RF meclizine 25 mg tablet 25 mg PO QDAY PRN (Reason: dizziness) Qty: 20 0RF alprazolam [Xanax] 0.5 mg tablet 0.5 mg PO BID PRN (Reason: anxiety) Qty: 14 0RF meclizine 25 mg tablet 25 mg PO TID PRN (Reason: dizziness) Qty: 14 0RF ondansetron 4 mg tablet,disintegrating 4 mg PO Q8H PRN (Reason: nausea and vomiting) Qty: 10 0RF ibuprofen 600 mg tablet 600 mg PO Q6H Qty: 30 0RF ondansetron 4 mg tablet,disintegrating 4 mg PO Q6H PRN (Reason: nausea and vomiting) Qty: 14 0RF scopolamine base [Transderm-Scop] 1 mg over 3 days patch 3 day 1 mg topical .Q3Day Qty: 10 0RF Referrals: Sushila Valdez PA-C [Primary Care Provider] - In 1 week Problem List Clinical Impression: Urinary tract infection, Diarrhea Patient/Caregiver Discharge Instructions Discharge Activity: activity as tolerated Education Materials: Treating Diarrhea, ED CYSTITIS Female Adult Additional Instructions: Follow up with primary provider in 1-2 days. Come back to ED if symptoms change or worsen Print Language: American Stand Alone Forms: Graciela Award Info., Patient Portal Info Letter PA/REAMING MACHINE OPERATOR [employer] Supervising Physician PA/REAMING MACHINE OPERATOR FOR [employer]IC Supervising Physician: evie
== END 2024-04-20 16:44 | disposition home or self-care (01) ==
PROVIDERS: Nurse Practitioner Family; Emergency Provider Emergency Medicine; PCP Physician Assistant
DX: N39.0 Urinary tract infection, site not specified (principal); R19.7 Diarrhea, unspecified
CPT/HCPCS: 36415; 80053; 81001; 81025; 85025; 87086; 99283

== ENCOUNTER 2024-05-28 06:52 | Emergency (ER) | payer MEDICAID, SELFPAY ==
[2024-05-28 06:58] VITALS: BMI 26.1
[2024-05-28 06:59] VITALS: BP 132/81; PULSE 117; RESP 18; TEMP 36.8; O2SAT 100
--- NOTE | 2024-05-28 07:07 | XR_ITS ---
Examination: Pelvic ultrasound, transabdominal, complete Technique: Transabdominal ultrasound of the pelvis performed using grayscale imaging Date and time of exam: May 28, 2024 1011 hrs. Indications: Pelvic pain and vaginal bleeding beginning 3 days ago worse today Findings: Uterus 8.1 cm endometrial stripe 0.8 cm No uterine mass or intrauterine gestation Right ovary 3.6 cm arterial flow Left ovary 3.6 cm arterial flow No fluid in the cul-de-sac Impression: Negative study
--- NOTE | 2024-05-28 07:08 | PD.EDRME ---
Rapid Medical Screening Exam RME Arrival date/time: 05/28/24 06:52 33-year-old female presents emerged from today via EMS for complaints of vaginal bleeding patient also found out that her grandfather patient is crying and anxious Vital signs: Vital Signs Temperature 98.3 F 05/28/24 06:59 Pulse Rate 117 H 05/28/24 06:59 Respiratory Rate 18 05/28/24 06:59 Blood Pressure 132/81 H 05/28/24 06:59 Pulse Oximetry (%) 100 05/28/24 06:59 Oxygen Delivery Method Room Air 05/28/24 06:59
[2024-05-28 07:49] LABS: Collection Type, Urine Clean Catch; WBC,Urine 0 /hpf (0-5)
[2024-05-28 08:16] LABS: HCG Qualitative,Urine Negative
[2024-05-28 08:40] LABS: RBC,Urine 68840 /hpf (0-3); Squamous Epithelial Cell,Urine 25 /hpf (0-5)
[2024-05-28 08:44] LABS: Bilirubin,Urine Negative (Negative); Blood,Urine 3+ (Negative); Color,Urine Dark-Red (Lt Yel-Yel); Culture Indicated,Urine Not Indicated; Glucose, Urine Negative (Negative); Ketones,Urine Negative (Negative); Leukocyte Esterase,Urine Positive (Negative); Nitrite,Urine Negative (Negative); PH,Urine 6.5 (5.0-7.0); Protein,Urine 3+ (Neg - Trace); Specific Gravity,Urine 1.024 (1.001-1.035); Urobilinogen,Urine Negative mg/dL (0.0-1.0)
[2024-05-28 08:45] LABS: Clarity,Urine Turbid (Clear/Hazy)
[2024-05-28 09:28] LABS: Basophils % (Auto) 0 % (0-2.5); Eosinophils % (Auto) 1 % (0-10); Hematocrit 37.1 % (36.0-46.0); Hemoglobin 11.8 g/dL (12.0-16.0); Immature Granulocytes % (Auto) 0 % (0-0); Immature Granulocytes Auto 0.01 Thou/mm3 (0.00-0.00); Lymphocytes # (Auto) 1.2 Thou/mm3 (1.0-4.8); Lymphocytes % (Auto) 16 % (10-50); Mean Corpuscular HGB Conc 31.8 g/dl (31.0-37.0); Mean Corpuscular Hemoglobin 24.9 pg (25.0-35.0); Mean Corpuscular Volume 78 fL (80-100); Monocytes # (Auto) 0.4 Thou/mm3 (0.0-0.8); Monocytes % (Auto) 5 % (0-12); Neutrophils # (Auto) 5.9 Thou/mm3 (1.8-7.7); Neutrophils % (Auto) 78 % (37-80); Nucleated Red Blood Cell % 0 /100 WBC (0); Platelet Count 226 Thou/mm3 (140-440); RDW Standard Deviation 40.2 fL (36.4-46.3); Red Blood Count 4.73 Miln/mm3 (4.00-5.20); White Blood Count 7.6 Thou/mm3 (3.6-11.0)
[2024-05-28 09:59] LABS: Alanine Aminotransferase 8 U/L (10-49); Albumin/Globulin Ratio 1.6 (1.2-2.2); Anion Gap 10 (7-16); Aspartate Amino Transferase 15 U/L (0-34); BUN/Creatinine Ratio 18 Ratio (12-20); Bilirubin,Total 0.4 mg/dL (0.3-1.2); Blood Urea Nitrogen 14 mg/dL (9-23); Calcium 9.9 mg/dL (8.3-10.6); Calcium (Corrected) 9.9 mg/dL (8.5-10.1); Carbon Dioxide 23.3 mMol/L (20.0-31.0); Chloride 107 mMol/L (98-107); Creatinine (Component) 0.8 mg/dL (0.6-1.3); Estimated Creatinine Clearance 95.4 mL/min (>60); Globulin 3.1 gm/dL (2.3-3.5); Glucose 102 mg/dL (74-106); Lipase 41 U/L (12-53); Osmolality,Calculated 279 (275-295); Potassium 3.9 mMol/L (3.4-5.1); Sodium 140 mMol/L (136-145); Total Protein 8.1 gm/dL (5.7-8.2); eGFR > 60 See Note
[2024-05-28 10:12] LABS: Alkaline Phosphatase 70 U/L (46-116)
--- NOTE | 2024-05-28 12:30 | EDNOTE_ITS ---
ED Anxiety RME/HPI General Chief Complaint: Anxiety Stated Complaint: ANXIETY Time Seen by Provider: 05/28/24 12:28 Arrival date/time: 05/28/24 06:52 33-year-old female presents emerged from today via EMS for complaints of vaginal bleeding patient also found out that her grandfather patient is crying and anxious Limitations: no limitations RME / HPI RME / HPI narrative: 05/28/24 06:52 33-year-old female presents emerged from today via EMS for complaints of vaginal bleeding patient also found out that her grandfather patient is crying and anxious Related Data Home Medications ?Medication ?Instructions ?Recorded ?Confirmed albuterol sulfate 90 mcg/actuation 2 puff inhalation Q 6H PRN 12/02/18 05/28/21 aerosol inhaler Shortness Of Breath Or Wheez ing meclizine 25 mg tablet 25 mg PO BID PRN Dizziness 0 05/28/21 05/28/21 Previous Rx's ?Medication ?Instructions ?Recorded meclizine 50 mg tablet 50 mg PO BID PRN motion sick ness 05/28/21 #14 tabs oxcarbazepine 300 mg tablet 300 mg PO BID #60 tabs rizatriptan 10 mg disintegrating See Rx Instructions P O .COMPLEX 10/21/22 tablet (Maxalt-CASH APPLICATION REPRESENTATIVE) #30 tabs meclizine 25 mg tablet 25 mg PO TID PRN dizziness # 14 tabs 10/28/22 ondansetron 4 mg disintegrating 4 mg PO Q8H PRN nausea and 10/28/22 tablet vomiting #10 tabs meclizine 25 mg tablet 25 mg PO QDAY PRN dizziness #20 02/13/23 tabs meclizine 25 mg tablet 25 mg PO QDAY PRN dizziness #20 08/21/23 tabs ibuprofen 600 mg tablet 600 mg PO Q6H #30 tabs 10/31 ondansetron 4 mg disintegrating 4 mg PO Q6H PRN nausea and 11/01/23 tablet vomiting #14 tabs scopolamine base 1 mg over 3 days 1 mg topical .Q3Day #10 ea 03/07/24 transdermal patch (Transderm-Scop) alprazolam 0.5 mg tablet (Xanax) 0.5 mg PO BID PRN anx iety #14 tabs 04/12/24 Allergies Allergy/AdvReac Type Severity Reaction Status Date / Time ciprofloxacin Allergy Severe RASH Verified 04/20/24 13:30 Review of Systems Review of Systems Systems Reviewed: All systems reviewed, normal except as documented Constitutional Constitutional: Reports system reviewed and no additional complaints, except as documented, Denies fever(s) and Denies headache(s) Eyes Eyes: Reports system reviewed and no additional complaints, except as documented and Denies blurry vision ENT Ears, Nose, Mouth, and Throat: Reports system reviewed and no additional complaints, except as documented, Denies headache(s), Denies nasal congestion and Denies nasal discharge Cardiovascular Cardiovascular: Reports system reviewed and no additional complaints, except as documented, Denies chest pain and Denies dyspnea Respiratory Respiratory: Reports system reviewed and no additional complaints, except as documented, Denies chest congestion, Denies cough and Denies dyspnea Gastrointestinal Gastrointestinal: Reports system reviewed and no additional complaints, except as documented and Denies abdominal pain Genitourinary Genitourinary: Reports system reviewed and no additional complaints, except as documented and Reports abnormal vaginal bleeding Integumentary/Breasts Skin/Breast: Reports system reviewed and no additional complaints, except as documented and Denies rash Neurologic Neurologic: Reports system reviewed and no additional complaints, except as documented, Reports as per HPI and Denies headache(s) Psychiatric Psychiatric: Reports system reviewed and no additional complaints, except as documented and Reports anxiety Past Medical History Past Medical History NEUROLOGIC: Positive Seizures and Migraine; Negative Neurological Disorders CARDIAC: Negative Cardiac Disorders or Congestive Heart Failure RESPIRATORY: Positive Asthma; Negative Chronic Obstructive Pulmonary Disease (COPD) GASTROINTESTINAL: Negative Gastrointestinal Disorders GENITOURINARY: Negative Genitourinary Disorders or Renal Disease MUSCULOSKELETAL: Negative Musculoskeletal Disorders ENDOCRINE: Negative Endocrine Disorders, Diabetes Mellitus Type 1 or Diabetes Mellitus Type 2 HEMATOLOGIC: Positive Anemia; Negative Blood Disorders or Sickle Cell Disease Family History FAMILY HISTORY: Positive Family Cancer (Breat Cancer with pt's aunt, pt's grandpa with leukemia) Surgical History SURGICAL: Positive Oral Surgery (Dental Surgery 2017) Social History SMOKING STATUS: Never smoker SUBSTANCE USE: does not use ED Exam General Limitations: Present no limitations General appearance: Present alert and in no apparent distress Head Head exam: Present atraumatic, normocephalic and normal inspection Eye Eye exam: Present normal appearance, PERRL and EOMI; Absent conjunctival injection ENT ENT exam: Present normal exam, normal oropharynx and mucous membranes moist Neck Neck exam: Present normal inspection, full ROM and trachea midline Chest Chest inspection: Present normal inspection and symmetric chest wall rise Respiratory Respiratory exam: Present normal lung sounds bilaterally; Absent respiratory distress Cardiovascular Cardiovascular exam: Present regular rate, normal rhythm and normal heart sounds Abdominal Exam Abdominal exam: Present soft and normal bowel sounds; Absent distention, tenderness, guarding, rebound or rigidity Extremities Exam Extremities exam: Present normal inspection and full ROM Back Exam Back exam: Present normal inspection and full ROM Neurological Exam Neurological exam: Present alert, oriented X3, CN II-XII intact, normal gait and reflexes normal; Absent motor sensory deficit Psychiatric Psychiatric exam: Present anxious; Absent agitated, flat affect, manic, homicidal ideation or suicidal ideation Skin Skin exam: Present warm, dry, intact and normal color; Absent rash Course Quality Measures none Orders Category Date Time Status US pelvic complete Stat Exams 05/28/24 07:07 Completed CBC Stat Lab 05/28/24 09:00 Completed Comprehensive Metabolic Panel Stat Lab 05/28/24 09:00 Completed HCG Qualitative,Urine Stat Lab 05/28/24 07:40 Completed Lipase Stat Lab 05/28/24 09:00 Completed UA, C/S IF [Urinalysis, C/S if Indicated] Stat Lab 05/28/24 07:40 Completed Vital Signs Vital signs: Vital Signs Temperature 98.3 F 05/28/24 06:59 Pulse Rate 117 H 05/28/24 06:59 Respiratory Rate 18 05/28/24 06:59 Blood Pressure 132/81 H 05/28/24 06:59 Pulse Oximetry (%) 100 05/28/24 06:59 Oxygen Delivery Method Room Air 05/28/24 06:59 O2 saturation 100% room air within normal limits Anxiety MDM Narrative MDM Narrative: 33-year-old female presents emergency department today via EMS for complaints of vaginal bleeding patient also found out that her grandfather patient is crying and anxious On exam patient to be quite anxious Lab work obtained lab work unremarkable ultrasound unremarkable At time of reevaluation patient reports that she feels better patient is no longer crying and is acting appropriately Patient discharged home in no distress to follow-up with primary care doctor in the next 24 to 48 hours and for any worsening symptoms to return to the ER immediately Patient data External records reviewed:: [facility] previous records Clinical information provided by:: patient Social determinants that could affect healthcare access:: none Patient has the following chronic illnesses:: None How is presenting disease/condition affected by chronic disease/condition?: no chronic disease Evaluation data The following diagnostics were reviewed and interpreted by me:: lab results and radiology exam(s) Lab and/or radiology exams considered but not ordered:: Labs radiology obtain Interpretation Summary: Reviewed by me Medications / Prescriptions Medications or Prescriptions considered but not ordered:: Given Medication administrations:: Given Consultations Consultation(s) initiated? (list below): No Diagnosis Differential diagnosis anxiety: hyperventilation, panic disorder and acute anxiety Most likely diagnosis given after review of the tests above:: Anxiety Admission Indicated Admission indicated?: not indicated Admission Request Was there a request for admission?: No Disposition Plan Disposition Plan: Discharge Discharge Attestation Discharge Attestation: The patient and all family members were given an opportunity to ask questions and understood the discharge instructions. Discharge instructions specifically effects, indications for sooner follow up or return to the emergency department, and the expected course of current diagnosis. Patient condition: Stable Discharge Plan Plan Patient Disposition: HOME (Self Care) Disposition Comment: Stable Prescriptions/Referrals Prescriptions/Med Rec: No Action albuterol sulfate 90 mcg/actuation HFA aerosol inhaler 2 puff INH Q6H PRN (Reason: Shortness Of Breath Or Wheezing) meclizine 25 mg Tablet 25 mg PO BID PRN (Reason: Dizziness) meclizine 50 mg tablet 50 mg PO BID PRN (Reason: motion sickness) Qty: 14 0RF oxcarbazepine 300 mg tablet 300 mg PO BID Qty: 60 0RF rizatriptan [Maxalt-CASH APPLICATION REPRESENTATIVE] 10 mg tablet,disintegrating See Rx Instructions .ROUTE .COMPLEX Qty: 30 0RF Rx Instructions: take 1 tab at onset of headache; if no relief may repeat 1 tab after at least 2 hrs; max = 3 tabs/24 hr meclizine 25 mg tablet 25 mg PO QDAY PRN (Reason: dizziness) Qty: 20 0RF meclizine 25 mg tablet 25 mg PO QDAY PRN (Reason: dizziness) Qty: 20 0RF alprazolam [Xanax] 0.5 mg tablet 0.5 mg PO BID PRN (Reason: anxiety) Qty: 14 0RF meclizine 25 mg tablet 25 mg PO TID PRN (Reason: dizziness) Qty: 14 0RF ondansetron 4 mg tablet,disintegrating 4 mg PO Q8H PRN (Reason: nausea and vomiting) Qty: 10 0RF ibuprofen 600 mg tablet 600 mg PO Q6H Qty: 30 0RF ondansetron 4 mg tablet,disintegrating 4 mg PO Q6H PRN (Reason: nausea and vomiting) Qty: 14 0RF scopolamine base [Transderm-Scop] 1 mg over 3 days patch 3 day 1 mg topical .Q3Day Qty: 10 0RF Referrals: No Primary/Family,Physician [Primary Care Provider] - In 1 week Problem List Clinical Impression: Dysfunctional uterine bleeding, Anxiety reaction Patient/Caregiver Discharge Instructions Education Materials: ED Anxiety Reaction Additional Instructions: Please follow-up with SPORTS PSYCHOLOGIST as discussed for worsening symptoms or concerns return to the ER immediately Print Language: Prydeinig Stand Alone Forms: Graciela Award Info., Patient Portal Info Letter PA/NEWSPAPER PHOTO EDITOR Supervising Physician PA/JANEE Supervising Physician: Dr blue
== END 2024-05-28 12:35 | disposition home or self-care (01) ==
PROVIDERS: Nurse Practitioner Primary Care; Emergency Provider Emergency Medicine
DX: N93.8 Other specified abnormal uterine and vaginal bleeding (principal)
CPT/HCPCS: 36415; 76856; 80053; 81001; 81025; 83690; 85025; 99284

== ENCOUNTER 2024-06-08 14:45 | Emergency (ER) | payer MEDICAID, SELFPAY ==
[2024-06-08 14:47] VITALS: BMI 25.2
[2024-06-08 15:15] VITALS: BP 130/85; PULSE 111; RESP 18; TEMP 36.9; O2SAT 98; BMI 25.2
--- NOTE | 2024-06-08 15:17 | XR_ITS ---
EXAMINATION: CT head/brain wo con ORDERING PROVIDER: Pedro Luis BUSCH), INTELLIGENCE CLERK HISTORY: 33-year-old female with headaches, dizziness, and right ear pain. TECHNIQUE: CT scanner was used in the volumetric, helical non-contrast acquisition of the head with 2-D and 3-D reformats created on a separate workstation and submitted for interpretation. Institutional dose reducing protocols were utilized. RADIATION DOSE: DLP 883 mGy-cm COMPARISON: 12/21/2023, CT head. FINDINGS: BRAIN: No acute intracranial hemorrhage, mass effect, or midline shift. Similar calcifications of the peritoneal gland. HEREDIA-WHITE DIFFERENTIATION: Preserved. EXTRA-AXIAL SPACES: No abnormal collection. SULCI: Normal. VENTRICLES: Normal. BASAL CISTERNS: Normal. VESSELS: No hyperdense vessel sign. DURAL VENOUS SINUSES: Symmetric attenuation. POSTERIOR FOSSA: Normal. MASTOID AIR CELLS: Clear. PARANASAL SINUSES: Clear. ORBITS: Normal. BONES: Normal. SCALP: Normal. IMPRESSION: No acute intracranial findings.
--- NOTE | 2024-06-08 15:18 | PD.EDRME ---
Rapid Medical Screening Exam RME Arrival date/time: 06/08/24 14:45 33-year-old female with multiple visits to the emergency department for the same presents emerged from today complaints of dizziness and weakness Chief Complaint: Dizziness Vital signs: Vital Signs Temperature 98.5 F 06/08/24 15:15 Pulse Rate 111 H 06/08/24 15:15 Respiratory Rate 18 06/08/24 15:15 Blood Pressure 130/85 H 06/08/24 15:15 Pulse Oximetry (%) 98 06/08/24 15:15 Oxygen Delivery Method Room Air 06/08/24 15:15
[2024-06-08 16:01] LABS: Basophils % (Auto) 0 % (0-2.5); Eosinophils # (Auto) 0.1 Thou/mm3 (0.0-0.5); Eosinophils % (Auto) 1 % (0-10); Hematocrit 37.7 % (36.0-46.0); Hemoglobin 12.1 g/dL (12.0-16.0); Immature Granulocytes % (Auto) 0 % (0-0); Immature Granulocytes Auto 0.02 Thou/mm3 (0.00-0.00); Lymphocytes # (Auto) 1.8 Thou/mm3 (1.0-4.8); Lymphocytes % (Auto) 25 % (10-50); Mean Corpuscular HGB Conc 32.1 g/dl (31.0-37.0); Mean Corpuscular Hemoglobin 24.7 pg (25.0-35.0); Mean Corpuscular Volume 77 fL (80-100); Monocytes # (Auto) 0.5 Thou/mm3 (0.0-0.8); Monocytes % (Auto) 7 % (0-12); Neutrophils # (Auto) 4.7 Thou/mm3 (1.8-7.7); Neutrophils % (Auto) 67 % (37-80); Nucleated Red Blood Cell % 0 /100 WBC (0); Platelet Count 261 Thou/mm3 (140-440); RDW Standard Deviation 39.7 fL (36.4-46.3)
[2024-06-08] MEDS: MECLIZINE HCL 25 MG TABLET 50 MG PO (16:05)
[2024-06-08] MEDS: DIAZEPAM 5 MG TABLET 10 MG PO (16:05)
[2024-06-08 16:23] LABS: HCG,Qualitative Serum Negative
[2024-06-08 16:28] LABS: Alanine Aminotransferase 11 U/L (10-49); Albumin, Serum 5.1 gm/dL (3.5-5.0); Albumin/Globulin Ratio 1.6 (1.2-2.2); Alkaline Phosphatase 73 U/L (46-116); Anion Gap 11 (7-16); Aspartate Amino Transferase 16 U/L (0-34); BUN/Creatinine Ratio 15 Ratio (12-20); Bilirubin,Total 0.4 mg/dL (0.3-1.2); Blood Urea Nitrogen 12 mg/dL (9-23); Calcium 10.4 mg/dL (8.3-10.6); Calcium (Corrected) 10.4 mg/dL (8.5-10.1); Carbon Dioxide 23.1 mMol/L (20.0-31.0); Chloride 107 mMol/L (98-107); Creatinine (Component) 0.8 mg/dL (0.6-1.3); Globulin 3.1 gm/dL (2.3-3.5); Glucose 105 mg/dL (74-106); Osmolality,Calculated 280 (275-295); Potassium 3.8 mMol/L (3.4-5.1); Sodium 141 mMol/L (136-145); Total Protein 8.2 gm/dL (5.7-8.2); Troponin I < 0.002 ng/mL (0.0-0.045); eGFR > 60 See Note
[2024-06-08 18:50] VITALS: BP 121/77; PULSE 96; RESP 16; TEMP 37.1; O2SAT 100
--- NOTE | 2024-06-08 21:57 | PD.EDEAR ---
ED Ear RME/HPI General Chief complaint: Dizziness Stated complaint: DIZZINESS X3 DAYS, BLURRED VISION SINCE YESTERDAY, Time Seen by Provider: 06/08/24 20:40 Arrival date/time: 06/08/24 14:45 This is a 33-year-old female that comes into the emergency room with complaints of dizziness the last 3 days along with blurry vision. Patient states she has had nausea because of this. She has dealt with vertigo for very long time now patient has seen an ENT, and neurologist in [place]. Patient has had an extensive workup. Patient reports that currently on the differential is vestibular migraines and vestibular neuritis. Patient has not started any medications for this as she is chronic going back and forth getting different test. Patient was recently seen in [place] and had an MRI done in April 2024 and it looked okay per patient. Limitations: no limitations RME / HPI RME / HPI Narrative: 06/08/24 14:45 33-year-old female with multiple visits to the emergency department for the same presents emerged from today complaints of dizziness and weakness Related Data Home Medications ?Medication ?Instructions ?Recorded ?Confirmed albuterol sulfate 90 mcg/actuation 2 puff inhalation Q6H PRN 12/02/18 05/28/21 aerosol inhaler Shortness Of Breath Or Wheezing meclizine 25 mg tablet 25 mg PO BID PRN Dizziness 05/28/21 05/28/21 Previous Rx's ?Medication ?Instructions ?Recorded meclizine 50 mg tablet 50 mg PO BID PRN motion sickness 05/28/21 #14 tabs oxcarbazepine 300 mg tablet 300 mg PO BID #60 tabs 07/17/21 rizatriptan 10 mg disintegrating See Rx Instructions PO .COMPLEX 10/21/22 tablet (Maxalt-J[employer] MECHANIC) #30 tabs meclizine 25 mg tablet 25 mg PO TID PRN dizziness #14 tabs 10/28/22 ondansetron 4 mg disintegrating 4 mg PO Q8H PRN nausea and 10/28/22 tablet vomiting #10 tabs meclizine 25 mg tablet 25 mg PO QDAY PRN dizziness #20 02/13/23 tabs meclizine 25 mg tablet 25 mg PO QDAY PRN dizziness #20 08/21/23 tabs ibuprofen 600 mg tablet 600 mg PO Q6H #30 tabs 11/01/23 ondansetron 4 mg disintegrating 4 mg PO Q6H PRN nausea and 11/01/23 tablet vomiting #14 tabs scopolamine base 1 mg over 3 days 1 mg topical .Q3Day #10 ea 03/07/24 transdermal patch (Transderm-Scop) alprazolam 0.5 mg tablet (Xanax) 0.5 mg PO BID PRN anxiety #14 tabs 04/12/24 Allergies Allergy/AdvReac Type Severity Reaction Status Date / Time ciprofloxacin Allergy Severe RASH Verified 06/08/24 14:47 Review of Systems Review of Systems Systems Reviewed: All systems reviewed, normal except as documented Past Medical History Past Medical History NEUROLOGIC: Positive Seizures and Migraine; Negative Neurological Disorders CARDIAC: Negative Cardiac Disorders or Congestive Heart Failure RESPIRATORY: Positive Asthma; Negative Chronic Obstructive Pulmonary Disease (COPD) GASTROINTESTINAL: Negative Gastrointestinal Disorders GENITOURINARY: Negative Genitourinary Disorders or Renal Disease MUSCULOSKELETAL: Negative Musculoskeletal Disorders ENDOCRINE: Negative Endocrine Disorders, Diabetes Mellitus Type 1 or Diabetes Mellitus Type 2 HEMATOLOGIC: Positive Anemia; Negative Blood Disorders or Sickle Cell Disease Family History FAMILY HISTORY: Positive Family Cancer (Breat Cancer with pt's aunt, pt's grandpa with leukemia) Surgical History SURGICAL: Positive Oral Surgery (Dental Surgery 2017) Social History SMOKING STATUS: Never smoker SUBSTANCE USE: does not use ED Exam General Limitations: Present no limitations General appearance: Present alert and in no apparent distress Head Head exam: Present atraumatic Eye Eye exam: Present normal appearance, PERRL and EOMI ENT ENT exam: Present normal exam, normal oropharynx and mucous membranes moist Neck Neck exam: Present normal inspection, full ROM and trachea midline Chest Chest inspection: Present normal inspection and symmetric chest wall rise Respiratory Respiratory exam: Present normal lung sounds bilaterally Cardiovascular Cardiovascular exam: Present regular rate and other (cap refill less than 2 seconds ) Abdominal Exam Abdominal exam: Present soft and normal bowel sounds Extremities Exam Extremities exam: Present normal inspection and full ROM Back Exam Back exam: Present normal inspection and full ROM Neurological Exam Neurological exam: Present alert, oriented X3 and CN II-XII intact Psychiatric Psychiatric exam: Present normal affect and normal mood Skin Skin exam: Present warm and dry Course Quality Measures none Orders Category Date Time Status CT head/brain wo con Stat Exams 06/08/24 15:17 Completed CBC Stat Lab 06/08/24 15:48 Completed Comprehensive Metabolic Panel Stat Lab 06/08/24 15:48 Completed HCG,Qualitative Serum Stat Lab 06/08/24 15:48 Completed Troponin I Stat Lab 06/08/24 15:48 Completed Diazepam [Valium] Med 06/08/24 15:17 Discontinued 10 mg PO X1 ONE Meclizine HCl [Antivert] Med 06/08/24 15:17 Discontinued 50 mg PO X1 ONE Vital Signs Vital signs: Vital Signs Temperature 98.5 F 06/08/24 15:15 Pulse Rate 111 H 06/08/24 15:15 Respiratory Rate 18 06/08/24 15:15 Blood Pressure 130/85 H 06/08/24 15:15 Pulse Oximetry (%) 98 06/08/24 15:15 Oxygen Delivery Method Room Air 06/08/24 15:15 Ear MDM Narrative MDM Narrative:: Patient was given Valium and also meclizine. Patient does feel better. I spoke to patient at length about follow-up with primary provider. Patient does have some ear pain on the right ear but TM looks fine. I even offered to give her a dose of Rocephin before she goes. Patient states she does not want Rocephin. Patient states she has had on and off pain to her right ear for some time now. They are currently working her up for possible nerve pain to her ear, vestibular migraine, and vestibular neuritis. Patient states she will follow-up with her primary provider in 1 to 2 days. Come back to the emergency room if symptoms change or worsen. Patient data External records reviewed:: [facility] previous records Clinical information provided by:: patient Social determinants that could affect healthcare access:: none Patient has the following chronic illnesses:: none How is presenting disease/condition affected by chronic disease/condition?: no chronic disease Evaluation data The following diagnostics were reviewed and interpreted by me:: lab results Lab and/or radiology exams considered but not ordered:: none Interpretation Summary: see note Medications / Prescriptions Medications or Prescriptions considered but not ordered:: none Medication administrations:: Medication Administration History Discontinued Medications Diazepam (Diazepam 5 Mg Tablet) 10 mg PO X1 ONE Stop: 06/08/24 15:18 Last Admin: 06/08/24 16:05 Dose: 10 mg Documented By: SAVANNAH Meclizine HCl (Meclizine Hcl 25 Mg Tablet) 50 mg PO X1 ONE Stop: 06/08/24 15:18 Last Admin: 06/08/24 16:05 Dose: 50 mg Documented By: KF see mar Consultations Consultation(s) initiated? (list below): No Diagnosis Most likely diagnosis given after review of the tests above:: dizziness Admission Indicated Admission indicated?: not indicated Admission Request Was there a request for admission?: No Disposition Plan Disposition Plan: Discharge Discharge Attestation Discharge Attestation: The patient and all family members were given an opportunity to ask questions and understood the discharge instructions. Discharge instructions specifically effects, indications for sooner follow up or return to the emergency department, and the expected course of current diagnosis. Patient condition: Stable Medical Decision Making Lab Data 06/08/24 15:48 06/08/24 15:48 Labs: Lab Results 06/08/24 Range/Units 15:48 WBC 7.0 (3.6-11.0) Thou/mm3 RBC 4.90 (4.00-5.20) Miln/mm3 Hgb 12.1 (12.0-16.0) g/dL Hct 37.7 (36.0-46.0) % MCV 77 L (80-100) fL MCH 24.7 L (25.0-35.0) pg MCHC 32.1 (31.0-37.0) g/dl RDW Std Deviation 39.7 (36.4-46.3) fL Plt Count 261 D (140-440) Thou/mm3 Neut % (Auto) 67 (37-80) % Lymph % (Auto) 25 (10-50) % [place] % (Auto) 7 (0-12) % Eos % (Auto) 1 (0-10) % Baso % (Auto) 0 (0-2.5) % Neut # (Auto) 4.7 (1.8-7.7) Thou/mm3 Lymph # (Auto) 1.8 (1.0-4.8) Thou/mm3 [place] # (Auto) 0.5 (0.0-0.8) Thou/mm3 Eos # (Auto) 0.1 (0.0-0.5) Thou/mm3 Baso # (Auto) 0.0 (0.0-0.2) Thou/mm3 Immature Gran # (Auto) 0.02 H (0.00-0.00) Thou/mm3 Absolute Nucleated RBC 0.00 (0.00-0.00) Thou/mm3 Immature Gran % 0 (0-0) % Nucleated RBC % 0 (0) /100 WBC Sodium 141 (136-145) mMol/L Potassium 3.8 (3.4-5.1) mMol/L Chloride 107 (98-107) mMol/L Carbon Dioxide 23.1 (20.0-31.0) mMol/L Anion Gap 11 (7-16) BUN 12 (9-23) mg/dL Creatinine 0.8 (0.6-1.3) mg/dL Estim Creat Clear Calc 94.0 (>60) mL/min eGFR > 60 (60 - ) See Note BUN/Creatinine Ratio 15 (12-20) Ratio Glucose 105 (74-106) mg/dL Calculated Osmolality 280 (275-295) Calcium 10.4 (8.3-10.6) mg/dL Corrected Calcium 10.4 H (8.5-10.1) mg/dL Total Bilirubin 0.4 (0.3-1.2) mg/dL AST 16 (0-34) U/L ALT 11 (10-49) U/L Alkaline Phosphatase 73 (46-116) U/L Troponin I < 0.002 (0.0-0.045) ng/mL Total Protein 8.2 (5.7-8.2) gm/dL Albumin 5.1 H (3.5-5.0) gm/dL Globulin 3.1 (2.3-3.5) gm/dL Albumin/Globulin Ratio 1.6 (1.2-2.2) HCG, Qual Negative Discharge Plan Plan Patient Disposition: HOME (Self Care) Patient condition on transfer: Stable Prescriptions/Referrals Prescriptions/Med Rec: No Action albuterol sulfate 90 mcg/actuation HFA aerosol inhaler 2 puff INH Q6H PRN (Reason: Shortness Of Breath Or Wheezing) meclizine 25 mg Tablet 25 mg PO BID PRN (Reason: Dizziness) meclizine 50 mg tablet 50 mg PO BID PRN (Reason: motion sickness) Qty: 14 0RF oxcarbazepine 300 mg tablet 300 mg PO BID Qty: 60 0RF rizatriptan [Maxalt-JET [employer]I MECHANIC] 10 mg tablet,disintegrating See Rx Instructions .ROUTE .COMPLEX Qty: 30 0RF Rx Instructions: take 1 tab at onset of headache; if no relief may repeat 1 tab after at least 2 hrs; max = 3 tabs/24 hr meclizine 25 mg tablet 25 mg PO QDAY PRN (Reason: dizziness) Qty: 20 0RF meclizine 25 mg tablet 25 mg PO QDAY PRN (Reason: dizziness) Qty: 20 0RF alprazolam [Xanax] 0.5 mg tablet 0.5 mg PO BID PRN (Reason: anxiety) Qty: 14 0RF meclizine 25 mg tablet 25 mg PO TID PRN (Reason: dizziness) Qty: 14 0RF ondansetron 4 mg tablet,disintegrating 4 mg PO Q8H PRN (Reason: nausea and vomiting) Qty: 10 0RF ibuprofen 600 mg tablet 600 mg PO Q6H Qty: 30 0RF ondansetron 4 mg tablet,disintegrating 4 mg PO Q6H PRN (Reason: nausea and vomiting) Qty: 14 0RF scopolamine base [Transderm-Scop] 1 mg over 3 days patch 3 day 1 mg topical .Q3Day Qty: 10 0RF Referrals: Rosana Hernández MD [Primary Care Provider] - In 1 week Problem List Clinical Impression: Dizziness Patient/Caregiver Discharge Instructions Discharge Activity: activity as tolerated Education Materials: Anatomy of the Inner Ear, Dizziness Fainting Poss Causes, Vertigo Medicine Tx Additional Instructions: Take meclizine at home as previously directed. Come back to the emergency room if symptoms change or worsen. Follow-up with primary provider as discussed. Print Language: Tanzanian Stand Alone Forms: Graciela Award Info., Patient Portal Info Letter PA/HOUSEKEEPING/LAUNDRY Supervising Physician PA/HOUSEKEEPING/LAUNDRY Supervising Physician: jones
== END 2024-06-08 23:37 | disposition home or self-care (01) ==
PROVIDERS: Nurse Practitioner Primary Care; Emergency Provider Emergency Medicine; PCP Internal Medicine
DX: R42 Dizziness and giddiness (principal)
CPT/HCPCS: 36415; 70450; 80053; 84484; 84703; 85025; 99284; A9270

== ENCOUNTER 2024-06-27 23:26 | Emergency (ER) | payer MEDICAID, SELFPAY ==
[2024-06-27 23:26] VITALS: BMI 25.7
--- NOTE | 2024-06-27 23:31 | EKG_ITS ---
[facility] Test Date: 2024-06-27 Pat Name: FRANCESCO DUNCAN Department: Room: - Gender: Female Beauty Operator: : 1990 Requested By: ED Temporary Provider Order Number: [id number] Reading MD: ED Temporary Provider Measurements Intervals [place] Rate: 108 P: 66 HI: 134 QRS: 89 QRSD: 100 T: 44 QT: 306 QTc: 411 Interpretive Statements SINUS TACHYCARDIA NONSPECIFIC T-WAVE ABNORMALITY ABNORMAL RHYTHM ECG Compared to ECG 11/28/2023 23:09:56 T-wave abnormality now present Sinus rhythm no longer present /store/S0/[id number]
[2024-06-27 23:40] VITALS: BP 145/76; PULSE 119; RESP 20; TEMP 36.9; O2SAT 100
--- NOTE | 2024-06-28 04:42 | EDNOTE_ITS ---
ED Anxiety RME/HPI General Chief Complaint: Chest Pain Stated Complaint: CHEST PAIN, HEART RACING Time Seen by Provider: 06/28/24 00:19 Arrival date/time: 06/27/24 23:26 33F with history of anxiety/panic attacks presents to ED with an episode of chest pain, heart palps, and body numbness. Patient has been experiencing these episodes for about 2 years and has seen multiple specialist w/o any diagnosis. Patient was given Paxil but has never taken it. Limitations: no limitations Related Data Home Medications ?Medication ?Instructions ?Recorded ?Confirmed albuterol sulfate 90 mcg/actuation 2 puff inhalation Q 6H PRN 12/02/18 05/28/21 aerosol inhaler Shortness Of Breath Or Wheez ing meclizine 25 mg tablet 25 mg PO BID PRN Dizziness 0 05/28/21 05/28/21 Previous Rx's ?Medication ?Instructions ?Recorded meclizine 50 mg tablet 50 mg PO BID PRN motion sick ness 05/28/21 #14 tabs oxcarbazepine 300 mg tablet 300 mg PO BID #60 tabs rizatriptan 10 mg disintegrating See Rx Instructions P O .COMPLEX 10/21/22 tablet (Maxalt-INSURANCE SERVICE REPRESENTATIVE) #30 tabs meclizine 25 mg tablet 25 mg PO TID PRN dizziness # 14 tabs 10/28/22 ondansetron 4 mg disintegrating 4 mg PO Q8H PRN nausea and 10/28/22 tablet vomiting #10 tabs meclizine 25 mg tablet 25 mg PO QDAY PRN dizziness #20 02/13/23 tabs meclizine 25 mg tablet 25 mg PO QDAY PRN dizziness #20 08/21/23 tabs ibuprofen 600 mg tablet 600 mg PO Q6H #30 tabs 10/31 ondansetron 4 mg disintegrating 4 mg PO Q6H PRN nausea and 11/01/23 tablet vomiting #14 tabs scopolamine base 1 mg over 3 days 1 mg topical .Q3Day #10 ea 03/07/24 transdermal patch (Transderm-Scop) alprazolam 0.5 mg tablet (Xanax) 0.5 mg PO BID PRN anx iety #14 tabs 04/12/24 Allergies Allergy/AdvReac Type Severity Reaction Status Date / Time ciprofloxacin Allergy Severe RASH Verified 06/08/24 14:47 Review of Systems Review of Systems Systems Reviewed: All systems reviewed, normal except as documented Constitutional Constitutional: Reports system reviewed and no additional complaints, except as documented, Denies fever(s) and Denies headache(s) ENT Ears, Nose, Mouth, and Throat: Denies disequilibrium and Denies headache(s) Cardiovascular Cardiovascular: Reports system reviewed and no additional complaints, except as documented, Reports as per HPI, Reports chest pain, Denies dyspnea and Reports palpitations Respiratory Respiratory: Reports system reviewed and no additional complaints, except as documented, Denies cough and Denies dyspnea Gastrointestinal Gastrointestinal: Reports system reviewed and no additional complaints, except as documented, Denies abdominal pain, Denies nausea and Denies vomiting Musculoskeletal Musculoskeletal: Reports numbness Neurologic Neurologic: Reports system reviewed and no additional complaints, except as documented, Denies confusion, Denies disequilibrium, Denies headache(s) and Reports numbness Psychiatric Psychiatric: Denies confusion Endocrine Endocrine: Reports palpitations Past Medical History Past Medical History NEUROLOGIC: Positive Seizures and Migraine; Negative Neurological Disorders CARDIAC: Negative Cardiac Disorders or Congestive Heart Failure RESPIRATORY: Positive Asthma; Negative Chronic Obstructive Pulmonary Disease (COPD) GASTROINTESTINAL: Negative Gastrointestinal Disorders GENITOURINARY: Negative Genitourinary Disorders or Renal Disease MUSCULOSKELETAL: Negative Musculoskeletal Disorders ENDOCRINE: Negative Endocrine Disorders, Diabetes Mellitus Type 1 or Diabetes Mellitus Type 2 HEMATOLOGIC: Positive Anemia; Negative Blood Disorders or Sickle Cell Disease Family History FAMILY HISTORY: Positive Family Cancer (Breat Cancer with pt's aunt, pt's grandpa with leukemia) Surgical History SURGICAL: Positive Oral Surgery (Dental Surgery 2017) Social History SMOKING STATUS: Never smoker SUBSTANCE USE: does not use ED Exam General Limitations: Present no limitations General appearance: Present alert and in no apparent distress Head Head exam: Present atraumatic Eye Eye exam: Present normal appearance, PERRL and EOMI ENT ENT exam: Present normal exam, normal oropharynx and mucous membranes moist Neck Neck exam: Present normal inspection, full ROM and trachea midline Chest Chest inspection: Present normal inspection and symmetric chest wall rise Respiratory Respiratory exam: Present normal lung sounds bilaterally Cardiovascular Cardiovascular exam: Present regular rate, normal rhythm and normal heart sounds Abdominal Exam Abdominal exam: Present soft and normal bowel sounds Extremities Exam Extremities exam: Present normal inspection and full ROM Back Exam Back exam: Present normal inspection and full ROM Neurological Exam Neurological exam: Present alert, oriented X3 and CN II-XII intact Psychiatric Psychiatric exam: Present normal affect and normal mood Skin Skin exam: Present warm, dry, intact and normal color Course Quality Measures none Orders Category Date Time Status EKG (ED ONLY) *Do not use* NOW Care 06/27/24 23:31 Completed EKG (ED Only) Stat Exams 06/27/24 23:31 Draft Vital Signs Vital signs: Vital Signs Temperature 98.5 F 06/27/24 23:40 Pulse Rate 119 H 06/27/24 23:40 Respiratory Rate 20 06/27/24 23:40 Blood Pressure 145/76 H 06/27/24 23:40 Pulse Oximetry (%) 100 06/27/24 23:40 Oxygen Delivery Method Room Air 06/27/24 23:40 Anxiety MDM Narrative MDM Narrative: 33F with history of anxiety/panic attacks presents to ED with an episode of chest pain, heart palps, and body numbness. Patient has been experiencing these episodes for about 2 years and has seen multiple specialist w/o any diagnosis. Patient was given Paxil but has never taken it. Physical exam reveals normal WOB. Patient is afebrile, alert, but very anxious. EKG is sinus tach of 108. Patient declines Valium as she has Ativan. Counseled extensively about panic disorder and benefits and expectations with SSRI therapy. Patient data External records reviewed:: [facility] previous records Clinical information provided by:: patient Social determinants that could affect healthcare access:: mental health Patient has the following chronic illnesses:: anxiety/panic attacks How is presenting disease/condition affected by chronic disease/condition?: caused by Evaluation data The following diagnostics were reviewed and interpreted by me:: EKG tracing(s) Lab and/or radiology exams considered but not ordered:: ordered Interpretation Summary: above Medications / Prescriptions Medications or Prescriptions considered but not ordered:: not ordered Medication administrations:: n/a Consultations Consultation(s) initiated? (list below): No Diagnosis Differential diagnosis anxiety: hyperventilation, panic disorder, acute anxiety and other (ACS) Most likely diagnosis given after review of the tests above:: panic disorder Admission Indicated Admission indicated?: not indicated Admission Request Was there a request for admission?: No Disposition Plan Disposition Plan: Discharge Discharge Attestation Discharge Attestation: The patient and all family members were given an opportunity to ask questions and understood the discharge instructions. Discharge instructions specifically effects, indications for sooner follow up or return to the emergency department, and the expected course of current diagnosis. Patient condition: Stable Discharge Plan Plan Patient Disposition: HOME (Self Care) Disposition Comment: Stable Prescriptions/Referrals Prescriptions/Med Rec: No Action albuterol sulfate 90 mcg/actuation HFA aerosol inhaler 2 puff INH Q6H PRN (Reason: Shortness Of Breath Or Wheezing) meclizine 25 mg Tablet 25 mg PO BID PRN (Reason: Dizziness) meclizine 50 mg tablet 50 mg PO BID PRN (Reason: motion sickness) Qty: 14 0RF oxcarbazepine 300 mg tablet 300 mg PO BID Qty: 60 0RF rizatriptan [Maxalt-INSURANCE SERVICE REPRESENTATIVE] 10 mg tablet,disintegrating See Rx Instructions .ROUTE .COMPLEX Qty: 30 0RF Rx Instructions: take 1 tab at onset of headache; if no relief may repeat 1 tab after at least 2 hrs; max = 3 tabs/24 hr meclizine 25 mg tablet 25 mg PO QDAY PRN (Reason: dizziness) Qty: 20 0RF meclizine 25 mg tablet 25 mg PO QDAY PRN (Reason: dizziness) Qty: 20 0RF alprazolam [Xanax] 0.5 mg tablet 0.5 mg PO BID PRN (Reason: anxiety) Qty: 14 0RF meclizine 25 mg tablet 25 mg PO TID PRN (Reason: dizziness) Qty: 14 0RF ondansetron 4 mg tablet,disintegrating 4 mg PO Q8H PRN (Reason: nausea and vomiting) Qty: 10 0RF ibuprofen 600 mg tablet 600 mg PO Q6H Qty: 30 0RF ondansetron 4 mg tablet,disintegrating 4 mg PO Q6H PRN (Reason: nausea and vomiting) Qty: 14 0RF scopolamine base [Transderm-Scop] 1 mg over 3 days patch 3 day 1 mg topical .Q3Day Qty: 10 0RF Problem List Clinical Impression: Panic disorder Patient/Caregiver Discharge Instructions Education Materials: Panic Disorder Tx, ED Panic Attack Additional Instructions: Please follow-up with PCP within 24-48 hours and return immediately if symptoms worsen. Strongly recommend starting an SSRI/SNRI and/or referral to psychiatrist. Print Language: Ukrainian Stand Alone Forms: Patient Portal Info Letter PA/SNAP ATTACHER Supervising Physician PA/SNAP ATTACHER Supervising Physician: Dr. Thorne
== END 2024-06-28 00:26 | disposition home or self-care (01) ==
LOC: SERX 06-28 00:22
PROVIDERS: Emergency Provider Emergency Medicine; PCP Physician Assistant
DX: F41.0 Panic disorder [episodic paroxysmal anxiety] (principal); R00.0 Tachycardia, unspecified
CPT/HCPCS: 93005; 99283

== ENCOUNTER 2024-07-06 17:25 | Emergency (ER) | payer MEDICAID, SELFPAY ==
[2024-07-06 17:40] VITALS: BP 103/63; PULSE 100; RESP 21; TEMP 37.2; O2SAT 96; BMI 24.3
[2024-07-06 17:45] VITALS: PULSE 150; RESP 18; O2SAT 99; BMI 20.9
[2024-07-06 17:49] LABS: Collection Type, Urine Clean Catch
[2024-07-06 17:50] VITALS: BP 115/65; PULSE 94; RESP 30; TEMP 37.6; O2SAT 100
[2024-07-06 18:01] LABS: Bacteria,Urine Rare; Bilirubin,Urine Negative (Negative); Blood,Urine 2+ (Negative); Clarity,Urine Turbid (Clear/Hazy); Color,Urine Yellow (Lt Yel-Yel); Glucose, Urine Negative (Negative); HCG Qualitative,Urine Negative; Ketones,Urine Trace (Negative); Leukocyte Esterase,Urine Positive (Negative); Nitrite,Urine Negative (Negative); Protein,Urine Trace (Neg - Trace); RBC,Urine 6 /hpf (0-3); Specific Gravity,Urine 1.017 (1.001-1.035); Squamous Epithelial Cell,Urine 10 /hpf (0-5); Urobilinogen,Urine Negative mg/dL (0.0-1.0); WBC,Urine 7 /hpf (0-5)
[2024-07-06 18:05] LABS: Amphetamine/Methamp Scrn,U Negative (Negative); Barbiturate Screen,Urine Negative (Negative); Benzodiazepines Screen,Urine Negative (Negative); Benzoylecgonine Screen, Ur Negative (Negative); Fentanyl Screen,Urine Negative (Negative); Opiate Screen,Urine Negative (Negative); THC Screen,Urine Negative (Negative)
[2024-07-06 18:22] VITALS: BP 102/66; PULSE 85; RESP 14; TEMP 37.3; O2SAT 100
--- NOTE | 2024-07-06 18:26 | PD.EDADULT ---
ED General RME/HPI General Chief complaint: Head Injury Stated complaint: DIZZINEZZ HEADACHE Time Seen by Provider: 07/06/24 17:34 Arrival date/time: 07/06/24 17:25 CC: Conde like I was pulled down to the ground . EMS report the patient had this sensation today, patient states she walked into a pole yesterday, patient also has had 2 days of diarrhea, started her period which heavy menses and has a history of anxiety. Patient denies loss of consciousness or altered level of consciousness at all of the symptoms started after taking 650 of Tylenol approximately 2 hours ago. Currently the patient is awake alert oriented x 3 Glascow coma 15 no focal deficits. Related Data Home Medications ?Medication ?Instructions ?Recorded ?Confirmed albuterol sulfate 90 mcg/actuation 2 puff inhalation Q6H PRN 12/02/18 05/28/21 aerosol inhaler Shortness Of Breath Or Wheezing meclizine 25 mg tablet 25 mg PO BID PRN Dizziness 05/28/21 05/28/21 Previous Rx's ?Medication ?Instructions ?Recorded meclizine 50 mg tablet 50 mg PO BID PRN motion sickness 05/28/21 #14 tabs oxcarbazepine 300 mg tablet 300 mg PO BID #60 tabs 07/17/21 rizatriptan 10 mg disintegrating See Rx Instructions PO .COMPLEX 10/21/22 tablet (Maxalt-WOODEN BARREL MECHANIC) #30 tabs meclizine 25 mg tablet 25 mg PO TID PRN dizziness #14 tabs 10/28/22 ondansetron 4 mg disintegrating 4 mg PO Q8H PRN nausea and 10/28/22 tablet vomiting #10 tabs meclizine 25 mg tablet 25 mg PO QDAY PRN dizziness #20 02/13/23 tabs meclizine 25 mg tablet 25 mg PO QDAY PRN dizziness #20 08/21/23 tabs ibuprofen 600 mg tablet 600 mg PO Q6H #30 tabs 11/01/23 ondansetron 4 mg disintegrating 4 mg PO Q6H PRN nausea and 11/01/23 tablet vomiting #14 tabs scopolamine base 1 mg over 3 days 1 mg topical .Q3Day #10 ea 03/07/24 transdermal patch (Transderm-Scop) alprazolam 0.5 mg tablet (Xanax) 0.5 mg PO BID PRN anxiety #14 tabs 04/12/24 Allergies Allergy/AdvReac Type Severity Reaction Status Date / Time ciprofloxacin Allergy Severe RASH Verified 06/08/24 14:47 Review of Systems Review of Systems Narrative Review of Systems: GEN: No fever, no chills, no weight loss EYES: No discharge, no visual changes, no pain HEENT: No ear pain, no congestion, no sore throat PULM: No shortness of breath, no cough, no congestion CV: No chest pain, no dyspnea on exertion, no palpitations GI: No nausea, no vomiting, no diarrhea, no pain, no constipation : No frequency, no urgency, no dysuria MUSC/SKEL: No joint pain, no back pain SKIN: No rash PSYCH: No hallucinations, no depression HEME/LYMPH: No easy bleeding or bruising tendencies NEURO: No weakness, no headache Past Medical History Past Medical History NEUROLOGIC: Positive Seizures and Migraine; Negative Neurological Disorders CARDIAC: Negative Cardiac Disorders or Congestive Heart Failure RESPIRATORY: Positive Asthma; Negative Chronic Obstructive Pulmonary Disease (COPD) GASTROINTESTINAL: Negative Gastrointestinal Disorders GENITOURINARY: Negative Genitourinary Disorders or Renal Disease MUSCULOSKELETAL: Negative Musculoskeletal Disorders ENDOCRINE: Negative Endocrine Disorders, Diabetes Mellitus Type 1 or Diabetes Mellitus Type 2 HEMATOLOGIC: Positive Anemia; Negative Blood Disorders or Sickle Cell Disease Family History FAMILY HISTORY: Positive Family Cancer (Breat Cancer with pt's aunt, pt's grandpa with leukemia) Surgical History SURGICAL: Positive Oral Surgery (Dental Surgery 2017) Social History SMOKING STATUS: Never smoker SUBSTANCE USE: does not use ED Exam Narrative Physical exam: [General: Anxious but not in any acute distress Head normocephalic HEENT: Within acceptable limits Neck is supple nontender Chest equal chest rise nontender to palpation Respiratory: Clear to auscultation no wheezes crackles or rubs CV: Rate rhythm is regular no murmurs rubs or clicks Abdomen is soft nontender no masses positive bowel sounds all 4 quadrants Back: No CVA tenderness no spinous process tenderness from cervical spine thoracic and lumbar spine Skin: Intact no petechiae rash induration ulceration or crepitus Extremities: Moving all extremity against resistance cap refill less than 2 seconds neurosensory intact Neuro: Awake alert oriented x3 Glascow coma 15 no focal deficits] Course Quality Measures none Orders Category Date Time Status CBC Stat Lab 07/06/24 18:00 Completed CMP [Comprehensive Metabolic Panel] Stat Lab 07/06/24 18:00 Completed Drug Screen,Urine Stat Lab 07/06/24 17:43 Completed HCG Qualitative,Urine Stat Lab 07/06/24 17:43 Completed Urinalysis Stat Lab 07/06/24 17:43 Completed Potassium Chloride [K-Dur] Med 07/06/24 18:46 Discontinued 40 meq PO X1 ONE Vital Signs Vital signs: Vital Signs Temperature 98.9 F 07/06/24 17:40 Pulse Rate 100 07/06/24 17:40 Respiratory Rate 21 H 07/06/24 17:40 Blood Pressure 103/63 07/06/24 17:40 Pulse Oximetry (%) 96 07/06/24 17:40 Oxygen Delivery Method Room Air 07/06/24 17:40 MDM Patient data External records reviewed:: [facility] previous records and EMS form Clinical information provided by:: patient and EMS Social determinants that could affect healthcare access:: none Patient has the following chronic illnesses:: Anxiety How is presenting disease/condition affected by chronic disease/condition?: exacerbated by Evaluation data The following diagnostics were reviewed and interpreted by me:: lab results Lab and/or radiology exams considered but not ordered:: Urine is turbid 2+ blood 10 squamous epithelia no bacteria UDS is negative Interpretation Summary: CBC shows mild anemia of 10.9 and 33.3 respectively no leukocytosis no thrombocytopenia CMP shows no significant electrolyte imbalances other than a potassium of 3.0 no renal impairment transaminitis or T. bili elevation Urine shows 2+ blood with epithelial cells. UDS is negative. Medications Medications considered but not ordered:: I suspect this is more anxiety driven than anything else patient will be discharged home patient continued on with feeling lightheaded without nausea, that her bladder felt like she was going to have to pee , and a flushed sensation. However the time of the exam and the time of the reinterviewed the patient's vital signs are completely stable she is awake alert and oriented I suspect this is all anxiety driven. Medication administrations:: Medication Administration History Discontinued Medications Potassium Chloride (Potassium Chloride 20 Meq Tabcr) 40 meq PO X1 ONE Stop: 07/06/24 18:47 Last Admin: 07/06/24 18:51 Dose: 40 meq Documented By: ROSE None Consultations Consultation(s) initiated? (list below): No Diagnosis Differential Diagnosis ED Complaint MDM: Anxiety electrolyte imbalances renal impairment Most likely diagnosis given after review of the tests above:: Anxiety Admission Indicated Admission indicated?: not indicated Explain why admission is indicated or not indicated:: Stable for discharge Admission Request Was there a request for admission?: No Disposition Plan Disposition Plan: Discharge Discharge Attestation Discharge Attestation: The patient and all family members were given an opportunity to ask questions and understood the discharge instructions. Discharge instructions specifically effects, indications for sooner follow up or return to the emergency department, and the expected course of current diagnosis. Patient condition: Stable Medical Decision Making Differential Diagnosis Differential Diagnosis: Anxiety electrolyte imbalances renal impairment Lab Data 07/06/24 18:00 07/06/24 18:00 Labs: Lab Results 07/06/24 07/06/24 Range/Units 17:43 18:00 WBC 6.4 (3.6-11.0) Thou/mm3 RBC 4.39 (4.00-5.20) Miln/mm3 Hgb 10.9 L (12.0-16.0) g/dL Hct 33.3 L (36.0-46.0) % MCV 76 L (80-100) fL MCH 24.8 L (25.0-35.0) pg MCHC 32.7 (31.0-37.0) g/dl RDW Std Deviation 39.5 (36.4-46.3) fL Plt Count 253 (140-440) Thou/mm3 Neut % (Auto) 58 (37-80) % Lymph % (Auto) 34 (10-50) % [place] % (Auto) 6 (0-12) % Eos % (Auto) 1 (0-10) % Baso % (Auto) 0 (0-2.5) % Neut # (Auto) 3.7 (1.8-7.7) Thou/mm3 Lymph # (Auto) 2.2 (1.0-4.8) Thou/mm3 [place] # (Auto) 0.4 (0.0-0.8) Thou/mm3 Eos # (Auto) 0.1 (0.0-0.5) Thou/mm3 Baso # (Auto) 0.0 (0.0-0.2) Thou/mm3 Immature Gran # (Auto) 0.02 H (0.00-0.00) Thou/mm3 Absolute Nucleated RBC 0.00 (0.00-0.00) Thou/mm3 Immature Gran % 0 (0-0) % Nucleated RBC % 0 (0) /100 WBC Sodium 142 (136-145) mMol/L Potassium 3.0 L (3.4-5.1) mMol/L Chloride 106 (98-107) mMol/L Carbon Dioxide 21.6 (20.0-31.0) mMol/L Anion Gap 14 (7-16) BUN 13 (9-23) mg/dL Creatinine 0.9 (0.6-1.3) mg/dL Estim Creat Clear Calc 76.8 (>60) mL/min eGFR > 60 (60 - ) See Note BUN/Creatinine Ratio 14 (12-20) Ratio Glucose 117 H (74-106) mg/dL Calculated Osmolality 284 (275-295) Calcium 10.3 (8.3-10.6) mg/dL Corrected Calcium 10.3 H (8.5-10.1) mg/dL Total Bilirubin 0.4 (0.3-1.2) mg/dL AST 16 (0-34) U/L ALT 8 L (10-49) U/L Alkaline Phosphatase 60 (46-116) U/L Total Protein 8.0 (5.7-8.2) gm/dL Albumin 4.8 (3.5-5.0) gm/dL Globulin 3.2 (2.3-3.5) gm/dL Albumin/Globulin Ratio 1.5 (1.2-2.2) Ur Collection Type Clean Catch Urine Color Yellow (Lt Yel-Yel) Urine Clarity Turbid A (Clear/Hazy) Urine pH 6.0 (5.0-7.0) Ur Specific [place] 1.017 (1.001-1.035) Urine Protein Trace (Neg - Trace) Urine Glucose (UA) Negative (Negative) Urine Ketones Trace (Negative) Urine Blood 2+ A (Negative) Urine Nitrite Negative (Negative) Urine Bilirubin Negative (Negative) Urine Urobilinogen (Auto) Negative (0.0-1.0) mg/dL Ur Leukocyte Esterase Positive (Negative) Urine RBC 6 H (0-3) /hpf Urine WBC 7 H (0-5) /hpf Ur Squamous Epith Cells 10 H (0-5) /hpf Urine Bacteria Rare (None) Urine HCG, Qual Negative Urine Opiates Screen Negative (Negative) Urine Fentanyl Screen Negative (Negative) Ur Barbiturates Screen Negative (Negative) U Amphetamin/Meth Scrn Negative (Negative) U Benzodiazepines Scrn Negative (Negative) U Cocaine Metab Screen Negative (Negative) U Marijuana (THC) Screen Negative (Negative) Discharge Plan Plan Patient Disposition: HOME (Self Care) Patient condition on transfer: Stable Prescriptions/Referrals Prescriptions/Med Rec: No Action albuterol sulfate 90 mcg/actuation HFA aerosol inhaler 2 puff INH Q6H PRN (Reason: Shortness Of Breath Or Wheezing) meclizine 25 mg Tablet 25 mg PO BID PRN (Reason: Dizziness) meclizine 50 mg tablet 50 mg PO BID PRN (Reason: motion sickness) Qty: 14 0RF oxcarbazepine 300 mg tablet 300 mg PO BID Qty: 60 0RF rizatriptan [Maxalt-WOODEN BARREL MECHANIC] 10 mg tablet,disintegrating See Rx Instructions .ROUTE .COMPLEX Qty: 30 0RF Rx Instructions: take 1 tab at onset of headache; if no relief may repeat 1 tab after at least 2 hrs; max = 3 tabs/24 hr meclizine 25 mg tablet 25 mg PO QDAY PRN (Reason: dizziness) Qty: 20 0RF meclizine 25 mg tablet 25 mg PO QDAY PRN (Reason: dizziness) Qty: 20 0RF alprazolam [Xanax] 0.5 mg tablet 0.5 mg PO BID PRN (Reason: anxiety) Qty: 14 0RF meclizine 25 mg tablet 25 mg PO TID PRN (Reason: dizziness) Qty: 14 0RF ondansetron 4 mg tablet,disintegrating 4 mg PO Q8H PRN (Reason: nausea and vomiting) Qty: 10 0RF ibuprofen 600 mg tablet 600 mg PO Q6H Qty: 30 0RF ondansetron 4 mg tablet,disintegrating 4 mg PO Q6H PRN (Reason: nausea and vomiting) Qty: 14 0RF scopolamine base [Transderm-Scop] 1 mg over 3 days patch 3 day 1 mg topical .Q3Day Qty: 10 0RF Referrals: No Primary/Family,Physician [Primary Care Provider] - In 1 week Balta Lira MD [Physician] - In 1 week Problem List Clinical Impression: Hypokalemia, Anxiety Patient/Caregiver Discharge Instructions Other Activity Instructions:: Follow-up with your primary care provider if there is worsening of symptoms return to the emergency room immediately for further evaluation. Education Materials: ED Anxiety Reaction, ED Hypokalemia Print Language: Mosotho Stand Alone Forms: Graciela Award Info., Work/School Release, Patient Portal Info Letter PA/AVIONICS SYSTEMS ENGINEER Supervising Physician PA/AVIONICS SYSTEMS ENGINEER Supervising Physician: Camron Puente ENP
[2024-07-06 18:27] LABS: Basophils % (Auto) 0 % (0-2.5); Eosinophils # (Auto) 0.1 Thou/mm3 (0.0-0.5); Eosinophils % (Auto) 1 % (0-10); Hematocrit 33.3 % (36.0-46.0); Hemoglobin 10.9 g/dL (12.0-16.0); Immature Granulocytes % (Auto) 0 % (0-0); Immature Granulocytes Auto 0.02 Thou/mm3 (0.00-0.00); Lymphocytes # (Auto) 2.2 Thou/mm3 (1.0-4.8); Lymphocytes % (Auto) 34 % (10-50); Mean Corpuscular HGB Conc 32.7 g/dl (31.0-37.0); Mean Corpuscular Hemoglobin 24.8 pg (25.0-35.0); Mean Corpuscular Volume 76 fL (80-100); Monocytes # (Auto) 0.4 Thou/mm3 (0.0-0.8); Monocytes % (Auto) 6 % (0-12); Neutrophils # (Auto) 3.7 Thou/mm3 (1.8-7.7); Neutrophils % (Auto) 58 % (37-80); Nucleated Red Blood Cell % 0 /100 WBC (0); Platelet Count 253 Thou/mm3 (140-440); RDW Standard Deviation 39.5 fL (36.4-46.3); Red Blood Count 4.39 Miln/mm3 (4.00-5.20); White Blood Count 6.4 Thou/mm3 (3.6-11.0)
[2024-07-06 18:45] LABS: Alanine Aminotransferase 8 U/L (10-49); Albumin, Serum 4.8 gm/dL (3.5-5.0); Albumin/Globulin Ratio 1.5 (1.2-2.2); Alkaline Phosphatase 60 U/L (46-116); Anion Gap 14 (7-16); Aspartate Amino Transferase 16 U/L (0-34); BUN/Creatinine Ratio 14 Ratio (12-20); Bilirubin,Total 0.4 mg/dL (0.3-1.2); Blood Urea Nitrogen 13 mg/dL (9-23); Calcium 10.3 mg/dL (8.3-10.6); Calcium (Corrected) 10.3 mg/dL (8.5-10.1); Carbon Dioxide 21.6 mMol/L (20.0-31.0); Chloride 106 mMol/L (98-107); Creatinine (Component) 0.9 mg/dL (0.6-1.3); Estimated Creatinine Clearance 76.8 mL/min (>60); Globulin 3.2 gm/dL (2.3-3.5); Glucose 117 mg/dL (74-106); Osmolality,Calculated 284 (275-295); Sodium 142 mMol/L (136-145); eGFR > 60 See Note
[2024-07-06] MEDS: POTASSIUM CHLORIDE 20 mEq TABCR 40 MEQ PO (18:51)
[2024-07-06 19:47] VITALS: PULSE 88; RESP 18; O2SAT 98
== END 2024-07-06 19:48 | disposition home or self-care (01) ==
PROVIDERS: Registered Nurse General Practice; Emergency Provider Emergency Medicine
DX: E87.6 Hypokalemia (principal); F41.9 Anxiety disorder, unspecified
CPT/HCPCS: 36415; 80053; 80307; 81001; 81025; 85025; 99283; A9270

== ENCOUNTER 2024-07-09 16:42 | Emergency (ER) | payer MEDICAID, SELFPAY ==
[2024-07-09 16:43] VITALS: BMI 24.3
[2024-07-09 16:48] VITALS: BP 135/76; PULSE 98; RESP 18; TEMP 36.6; O2SAT 100
--- NOTE | 2024-07-09 17:02 | PD.EDRME ---
Rapid Medical Screening Exam [facility] Arrival date/time: 07/09/24 16:42 33-year-old female history of anxiety, chronic dizziness and seizures presents with concerns for dizziness generalized fatigue Chief Complaint: General Adult/Misc Complain Vital signs: Vital Signs Temperature 97.9 F 07/09/24 16:48 Pulse Rate 98 07/09/24 16:48 Respiratory Rate 18 07/09/24 16:48 Blood Pressure 135/76 H 07/09/24 16:48 Pulse Oximetry (%) 100 07/09/24 16:48 Oxygen Delivery Method Room Air 07/09/24 16:48
[2024-07-09 17:21] LABS: Basophils % (Auto) 0 % (0-2.5); Eosinophils % (Auto) 1 % (0-10); Hematocrit 37.4 % (36.0-46.0); Hemoglobin 11.9 g/dL (12.0-16.0); Immature Granulocytes % (Auto) 0 % (0-0); Immature Granulocytes Auto 0.02 Thou/mm3 (0.00-0.00); Lymphocytes # (Auto) 1.2 Thou/mm3 (1.0-4.8); Lymphocytes % (Auto) 19 % (10-50); Mean Corpuscular HGB Conc 31.8 g/dl (31.0-37.0); Mean Corpuscular Hemoglobin 24.9 pg (25.0-35.0); Mean Corpuscular Volume 78 fL (80-100); Monocytes # (Auto) 0.4 Thou/mm3 (0.0-0.8); Monocytes % (Auto) 7 % (0-12); Neutrophils # (Auto) 4.8 Thou/mm3 (1.8-7.7); Neutrophils % (Auto) 74 % (37-80); Nucleated Red Blood Cell % 0 /100 WBC (0); Platelet Count 262 Thou/mm3 (140-440); RDW Standard Deviation 40.4 fL (36.4-46.3); Red Blood Count 4.78 Miln/mm3 (4.00-5.20); White Blood Count 6.6 Thou/mm3 (3.6-11.0)
[2024-07-09 17:33] LABS: Collection Type, Urine Clean Catch
[2024-07-09 17:46] LABS: HCG Qualitative,Urine Negative
[2024-07-09 17:50] LABS: Bacteria,Urine Rare; Bilirubin,Urine Negative (Negative); Blood,Urine 1+ (Negative); Clarity,Urine Clear (Clear/Hazy); Color,Urine Colorless (Lt Yel-Yel); Culture Indicated,Urine Not Indicated; Glucose, Urine Negative (Negative); Ketones,Urine Negative (Negative); Leukocyte Esterase,Urine Positive (Negative); Nitrite,Urine Negative (Negative); Protein,Urine Negative (Neg - Trace); RBC,Urine 2 /hpf (0-3); Squamous Epithelial Cell,Urine 2 /hpf (0-5); Urobilinogen,Urine Negative mg/dL (0.0-1.0); WBC,Urine 2 /hpf (0-5)
[2024-07-09 17:52] LABS: Alanine Aminotransferase 9 U/L (10-49); Albumin, Serum 5.1 gm/dL (3.5-5.0); Albumin/Globulin Ratio 1.5 (1.2-2.2); Alkaline Phosphatase 65 U/L (46-116); Anion Gap 11 (7-16); Aspartate Amino Transferase 16 U/L (0-34); BUN/Creatinine Ratio 13 Ratio (12-20); Bilirubin,Total 0.5 mg/dL (0.3-1.2); Blood Urea Nitrogen 13 mg/dL (9-23); Carbon Dioxide 24.1 mMol/L (20.0-31.0); Chloride 107 mMol/L (98-107); Estimated Creatinine Clearance 69.1 mL/min (>60); Globulin 3.3 gm/dL (2.3-3.5); Glucose 103 mg/dL (74-106); Osmolality,Calculated 283 (275-295); Potassium 3.8 mMol/L (3.4-5.1); Sodium 142 mMol/L (136-145); Total Protein 8.4 gm/dL (5.7-8.2); eGFR > 60 See Note
[2024-07-09 18:04] LABS: Lipase 41 U/L (12-53)
--- NOTE | 2024-07-09 18:35 | EDNOTE_ITS ---
ED General RME/HPI General Chief complaint: General Adult/Misc Complain Stated complaint: FEELS FAINT, WEAK AND DEHYDRATED Time Seen by Provider: 07/09/24 18:04 Arrival date/time: 07/09/24 16:42 RME / HPI RME / HPI narrative: 07/09/24 16:42 33-year-old female history of anxiety, chronic dizziness and seizures presents with concerns for generalized fatigue This section includes all my notes and documentations, including HPI, PE, and ED course. Keanu Sinha MD HPI: 33-year-old female here with several days of aches and cramping diffusely with malaise and fatigue. Was seen here several days ago. Low potassium level was noted. Requested her electrolytes to be checked again. No other complaints. ROS: All negative except as documented in HPI. Physical Exam: General: Alert and oriented. No acute distress when remaining still. Eyes: Conjunctivae and lids clear. ENT: No nasal congestion. Neck: Supple. Heart: RRR. Lungs: No respiratory distress. Good air movement. No rhonchi, wheezing, rales. Abdomen: Soft and nontender. Legs: No clubbing, cyanosis, edema. Skin: Warm and dry. Neuro: Alert and oriented X 3. I reviewed all diagnostic test results. Blood tests and urine tests unremarkable. At this point, diagnoses include aches and cramping of unclear etiology. Recommended more outpatient workup. Based on my best medical judgment, made decision no further evaluation or treatment indicated at this time. Patient understands and agrees to the discharge instructions customized and printed, see below. Discharge Instructions from Dr. Sinha printed for you: 1. After extensive evaluation, exact cause of your cramping and aches was not determined. 2. But there is no emergency. Such as low potassium or magnesium levels or rhabdomyolysis. And your hemoglobin was 11.9. 3. Ibuprofen/Tylenol as needed. For good hydration, increase oral fluid and maintain clear urine. If dark or yellow, increase oral fluid. 4. See a private doctor on 07/10/24 for recheck and further care. Ask to review all test results and official radiology reports, to make sure you receive all necessary follow-ups and monitoring. Ask for help finding the cause and treatment of your symptoms with more care not available here in the ER, such as referrals to see specialists. 5. Seek immediate medical care with worsening or with any concerns. Keanu Sinha MD Related Data Home Medications ?Medication ?Instructions ?Recorded ?Confirmed albuterol sulfate 90 mcg/actuation 2 puff inhalation Q 6H PRN 12/02/18 05/28/21 aerosol inhaler Shortness Of Breath Or Wheez ing meclizine 25 mg tablet 25 mg PO BID PRN Dizziness 0 05/28/21 05/28/21 Previous Rx's ?Medication ?Instructions ?Recorded meclizine 50 mg tablet 50 mg PO BID PRN motion sick ness 05/28/21 #14 tabs oxcarbazepine 300 mg tablet 300 mg PO BID #60 tabs rizatriptan 10 mg disintegrating See Rx Instructions P O .COMPLEX 10/21/22 tablet (Maxalt-ELECTRIC MOTOR WINDER) #30 tabs meclizine 25 mg tablet 25 mg PO TID PRN dizziness # 14 tabs 10/28/22 ondansetron 4 mg disintegrating 4 mg PO Q8H PRN nausea and 10/28/22 tablet vomiting #10 tabs meclizine 25 mg tablet 25 mg PO QDAY PRN dizziness #20 02/13/23 tabs meclizine 25 mg tablet 25 mg PO QDAY PRN dizziness #20 08/21/23 tabs ibuprofen 600 mg tablet 600 mg PO Q6H #30 tabs 10/31 ondansetron 4 mg disintegrating 4 mg PO Q6H PRN nausea and 11/01/23 tablet vomiting #14 tabs scopolamine base 1 mg over 3 days 1 mg topical .Q3Day #10 ea 03/07/24 transdermal patch (Transderm-Scop) alprazolam 0.5 mg tablet (Xanax) 0.5 mg PO BID PRN anx iety #14 tabs 04/12/24 Allergies Allergy/AdvReac Type Severity Reaction Status Date / Time ciprofloxacin Allergy Severe RASH Verified 07/09/24 16:44 Review of Systems Review of Systems Systems Reviewed: All systems reviewed, normal except as documented Past Medical History Past Medical History NEUROLOGIC: Positive Seizures and Migraine; Negative Neurological Disorders CARDIAC: Negative Cardiac Disorders or Congestive Heart Failure RESPIRATORY: Positive Asthma; Negative Chronic Obstructive Pulmonary Disease (COPD) GASTROINTESTINAL: Negative Gastrointestinal Disorders GENITOURINARY: Negative Genitourinary Disorders or Renal Disease MUSCULOSKELETAL: Negative Musculoskeletal Disorders ENDOCRINE: Negative Endocrine Disorders, Diabetes Mellitus Type 1 or Diabetes Mellitus Type 2 HEMATOLOGIC: Positive Anemia; Negative Blood Disorders or Sickle Cell Disease Family History FAMILY HISTORY: Positive Family Cancer (Breat Cancer with pt's aunt, pt's grandpa with leukemia) Surgical History SURGICAL: Positive Oral Surgery (Dental Surgery 2017) Social History SMOKING STATUS: Never smoker SUBSTANCE USE: does not use ED Exam Narrative Physical exam: As noted in HPI. Course Quality Measures none Orders Category Date Time Status CBC Stat Lab 07/09/24 17:10 Completed CK [Creatine Kinase] Stat Lab 07/09/24 17:10 Completed Comprehensive Metabolic Panel Stat Lab 07/09/24 17:10 Completed Free T4 (Free Thyroxine) Stat Lab 07/09/24 17:10 Completed HCG Qualitative,Urine Stat Lab 07/09/24 17:24 Completed Lipase Stat Lab 07/09/24 17:10 Completed Magnesium Stat Lab 07/09/24 17:10 Completed TSH [Thyroid Stimulating Hormone] Stat Lab 07/09/24 17:10 Completed UA, C/S IF [Urinalysis, C/S if Indicated] Stat Lab 07/09/24 17:24 Completed Vital Signs Vital signs: Vital Signs Temperature 97.9 F 07/09/24 16:48 Pulse Rate 98 07/09/24 16:48 Respiratory Rate 18 07/09/24 16:48 Blood Pressure 135/76 H 07/09/24 16:48 Pulse Oximetry (%) 100 07/09/24 16:48 Oxygen Delivery Method Room Air 07/09/24 16:48 MDM Patient data External records reviewed:: [facility] previous records (Per chart review, patient was seen here on 07/06/24 for anxiety.) Clinical information provided by:: patient Social determinants that could affect healthcare access:: mental health Patient has the following chronic illnesses:: anxiety How is presenting disease/condition affected by chronic disease/condition?: u neffected by Evaluation data The following diagnostics were reviewed and interpreted by me:: lab results Lab and/or radiology exams considered but not ordered:: none Interpretation Summary: Normal diagnostics Medications Medications considered but not ordered:: none Medication administrations:: None Consultations Consultation(s) initiated? (list below): No Diagnosis Differential Diagnosis ED Complaint MDM: Dehydration, electrolyte abnormalities, rhabdomyolysis, psychogenic Most likely diagnosis given after review of the tests above:: Aches and cramping of unclear etiology Admission Indicated Admission indicated?: not indicated Explain why admission is indicated or not indicated:: No criteria for admission. Admission Request Was there a request for admission?: No Disposition Plan Disposition Plan: Discharge Discharge Attestation Discharge Attestation: The patient and all family members were given an opportunity to ask questions and understood the discharge instructions. Discharge instructions specifically effects, indications for sooner follow up or return to the emergency department, and the expected course of current diagnosis. Patient condition: Stable Medical Decision Making Differential Diagnosis Differential Diagnosis: Dehydration, electrolyte abnormalities, rhabdomyolysis, psychogenic Lab Data 07/09/24 17:10 07/09/24 17:10 Labs: Lab Results 07/09/24 07/09/24 Range/Units 17:10 17:24 WBC 6.6 (3.6-11.0) Thou/mm3 RBC 4.78 (4.00-5.20) Miln/mm3 Hgb 11.9 L (12.0-16.0) g/dL Hct 37.4 (36.0-46.0) % MCV 78 L (80-100) fL MCH 24.9 L (25.0-35.0) pg MCHC 31.8 (31.0-37.0) g/dl RDW Std Deviation 40.4 (36.4-46.3) fL Plt Count 262 (140-440) Thou/mm3 Neut % (Auto) 74 (37-80) % Lymph % (Auto) 19 (10-50) % [place] % (Auto) 7 (0-12) % Eos % (Auto) 1 (0-10) % Baso % (Auto) 0 (0-2.5) % Neut # (Auto) 4.8 (1.8-7.7) Thou/mm3 Lymph # (Auto) 1.2 (1.0-4.8) Thou/mm3 [place] # (Auto) 0.4 (0.0-0.8) Thou/mm3 Eos # (Auto) 0.0 (0.0-0.5) Thou/mm3 Baso # (Auto) 0.0 (0.0-0.2) Thou/mm3 Immature Gran # (Auto) 0.02 H (0.00-0.00) Thou/mm3 Absolute Nucleated RBC 0.00 (0.00-0.00) Thou/mm3 Immature Gran % 0 (0-0) % Nucleated RBC % 0 (0) /100 WBC Sodium 142 (136-145) mMol/L Potassium 3.8 D (3.4-5.1) mMol/L Chloride 107 (98-107) mMol/L Carbon Dioxide 24.1 (20.0-31.0) mMol/L Anion Gap 11 (7-16) BUN 13 (9-23) mg/dL Creatinine 1.0 (0.6-1.3) mg/dL Estim Creat Clear Calc 69.1 (>60) mL/min eGFR > 60 (60 - ) See Note BUN/Creatinine Ratio 13 (12-20) Ratio Glucose 103 (74-106) mg/dL Calculated Osmolality 283 (275-295) Calcium 10.0 (8.3-10.6) mg/dL Corrected Calcium 10.0 (8.5-10.1) mg/dL Magnesium 2.1 (1.6-2.6) mg/dL Total Bilirubin 0.5 (0.3-1.2) mg/dL AST 16 (0-34) U/L ALT 9 L (10-49) U/L Alkaline Phosphatase 65 (46-116) U/L Total Creatine Kinase 64 (34-171) U/L Total Protein 8.4 H (5.7-8.2) gm/dL Albumin 5.1 H (3.5-5.0) gm/dL Globulin 3.3 (2.3-3.5) gm/dL Albumin/Globulin Ratio 1.5 (1.2-2.2) Lipase 41 (12-53) U/L TSH 1.19 (0.55-4.78) uIU/mL Free T4 1.31 (0.89-1.76) ng/dL Ur Collection Type Clean Catch Urine Color Colorless A (Lt Yel-Yel) Urine Clarity Clear (Clear/Hazy) Urine pH 7.0 (5.0-7.0) Ur Specific [place] 1.010 (1.001-1.035) Urine Protein Negative (Neg - Trace) Urine Glucose (UA) Negative (Negative) Urine Ketones Negative (Negative) Urine Blood 1+ A (Negative) Urine Nitrite Negative (Negative) Urine Bilirubin Negative (Negative) Urine Urobilinogen (Auto) Negative (0.0-1.0) mg/dL Ur Leukocyte Esterase Positive (Negative) Urine RBC 2 (0-3) /hpf Urine WBC 2 (0-5) /hpf Ur Squamous Epith Cells 2 (0-5) /hpf Urine Bacteria Rare (None) Ur Culture Indicated? Not Indicated Urine HCG, Qual Negative Discharge Plan Plan Patient Disposition: HOME (Self Care) Prescriptions/Referrals Prescriptions/Med Rec: No Action albuterol sulfate 90 mcg/actuation HFA aerosol inhaler 2 puff INH Q6H PRN (Reason: Shortness Of Breath Or Wheezing) meclizine 25 mg Tablet 25 mg PO BID PRN (Reason: Dizziness) meclizine 50 mg tablet 50 mg PO BID PRN (Reason: motion sickness) Qty: 14 0RF oxcarbazepine 300 mg tablet 300 mg PO BID Qty: 60 0RF rizatriptan [Maxalt-ELECTRIC MOTOR WINDER] 10 mg tablet,disintegrating See Rx Instructions .ROUTE .COMPLEX Qty: 30 0RF Rx Instructions: take 1 tab at onset of headache; if no relief may repeat 1 tab after at least 2 hrs; max = 3 tabs/24 hr meclizine 25 mg tablet 25 mg PO QDAY PRN (Reason: dizziness) Qty: 20 0RF meclizine 25 mg tablet 25 mg PO QDAY PRN (Reason: dizziness) Qty: 20 0RF alprazolam [Xanax] 0.5 mg tablet 0.5 mg PO BID PRN (Reason: anxiety) Qty: 14 0RF meclizine 25 mg tablet 25 mg PO TID PRN (Reason: dizziness) Qty: 14 0RF ondansetron 4 mg tablet,disintegrating 4 mg PO Q8H PRN (Reason: nausea and vomiting) Qty: 10 0RF ibuprofen 600 mg tablet 600 mg PO Q6H Qty: 30 0RF ondansetron 4 mg tablet,disintegrating 4 mg PO Q6H PRN (Reason: nausea and vomiting) Qty: 14 0RF scopolamine base [Transderm-Scop] 1 mg over 3 days patch 3 day 1 mg topical .Q3Day Qty: 10 0RF Referrals: Sushila Valdez PA-C [Primary Care Provider] - In 1 week Problem List Clinical Impression: Body aches Patient/Caregiver Discharge Instructions Discharge Activity: activity as tolerated Education Materials: ED Pain, Acute, Uncertain Cause Additional Instructions: Discharge Instructions from Dr. Sinha printed for you: 1. After extensive evaluation, exact cause of your cramping and aches was not determined. 2. But there is no emergency. Such as low potassium or magnesium levels or rhabdomyolysis. And your hemoglobin was 11.9. 3. Ibuprofen/Tylenol as needed. For good hydration, increase oral fluid and maintain clear urine. If dark or yellow, increase oral fluid. 4. See a private doctor on 07/10/24 for recheck and further care. Ask to review all test results and official radiology reports, to make sure you receive all necessary follow-ups and monitoring. Ask for help finding the cause and treatment of your symptoms with more care not available here in the ER, such as referrals to see specialists. 5. Seek immediate medical care with worsening or with any concerns. Print Language: [place] Stand Alone Forms: [employer] Award Info., Patient Portal Info Letter
[2024-07-09 19:35] LABS: Creatine Kinase 64 U/L (34-171); Free T4 (Free Thyroxine) 1.31 ng/dL (0.89-1.76); Magnesium 2.1 mg/dL (1.6-2.6); Thyroid Stimulating Hormone 1.19 uIU/mL (0.55-4.78)
[2024-07-09 20:10] VITALS: BP 130/72; PULSE 76; RESP 18; TEMP 36.7; O2SAT 98
== END 2024-07-09 20:12 | disposition home or self-care (01) ==
PROVIDERS: Nurse Practitioner Primary Care; Emergency Provider Emergency Medicine; PCP Physician Assistant
DX: R52 Pain, unspecified (principal); R25.2 Cramp and spasm; R53.83 Other fatigue
CPT/HCPCS: 36415; 80053; 81001; 81025; 82550; 83690; 83735; 84439; 84443; 85025; 99283

== ENCOUNTER 2024-07-18 13:24 | Emergency (ER) | payer MEDICAID, SELFPAY ==
[2024-07-18 13:25] VITALS: BMI 23.8
[2024-07-18 13:30] VITALS: BP 148/92; PULSE 95; RESP 20; TEMP 36.8; O2SAT 100
--- NOTE | 2024-07-18 13:47 | PD.EDADULT ---
ED General RME/HPI General Chief complaint: General Adult/Misc Complain Stated complaint: HEADACHE, HOT FLASHES, NAUSEA Time Seen by Provider: 07/18/24 13:30 Arrival date/time: 07/18/24 13:24 33-year-old female with medical history significant for anxiety, stress, chronic headaches and dizziness presents for concerns for right-sided headache intermittently for the last couple of weeks Limitations: no limitations Related Data Home Medications ?Medication ?Instructions ?Recorded ?Confirmed albuterol sulfate 90 mcg/actuation 2 puff inhalation Q6H PRN 12/02/18 05/28/21 aerosol inhaler Shortness Of Breath Or Wheezing meclizine 25 mg tablet 25 mg PO BID PRN Dizziness 05/28/21 05/28/21 Previous Rx's ?Medication ?Instructions ?Recorded meclizine 50 mg tablet 50 mg PO BID PRN motion sickness 05/28/21 #14 tabs oxcarbazepine 300 mg tablet 300 mg PO BID #60 tabs 07/17/21 rizatriptan 10 mg disintegrating See Rx Instructions PO .COMPLEX 10/21/22 tablet (Maxalt-RUN LEAD) #30 tabs meclizine 25 mg tablet 25 mg PO TID PRN dizziness #14 tabs 10/28/22 ondansetron 4 mg disintegrating 4 mg PO Q8H PRN nausea and 10/28/22 tablet vomiting #10 tabs meclizine 25 mg tablet 25 mg PO QDAY PRN dizziness #20 02/13/23 tabs meclizine 25 mg tablet 25 mg PO QDAY PRN dizziness #20 08/21/23 tabs ibuprofen 600 mg tablet 600 mg PO Q6H #30 tabs 11/01/23 ondansetron 4 mg disintegrating 4 mg PO Q6H PRN nausea and 11/01/23 tablet vomiting #14 tabs scopolamine base 1 mg over 3 days 1 mg topical .Q3Day #10 ea 03/07/24 transdermal patch (Transderm-Scop) alprazolam 0.5 mg tablet (Xanax) 0.5 mg PO BID PRN anxiety #14 tabs 04/12/24 Allergies Allergy/AdvReac Type Severity Reaction Status Date / Time ciprofloxacin Allergy Severe RASH Verified 07/18/24 13:28 Review of Systems Review of Systems Systems Reviewed: All systems reviewed, normal except as documented Constitutional Constitutional: Reports system reviewed and no additional complaints, except as documented, Denies fever(s) and Denies headache(s) Eyes Eyes: Reports system reviewed and no additional complaints, except as documented and Denies blurry vision ENT Ears, Nose, Mouth, and Throat: Reports system reviewed and no additional complaints, except as documented, Denies headache(s), Denies nasal congestion and Denies nasal discharge Cardiovascular Cardiovascular: Reports system reviewed and no additional complaints, except as documented, Denies chest pain and Denies dyspnea Respiratory Respiratory: Reports system reviewed and no additional complaints, except as documented, Denies chest congestion, Denies cough and Denies dyspnea Gastrointestinal Gastrointestinal: Reports system reviewed and no additional complaints, except as documented and Denies abdominal pain Integumentary/Breasts Skin/Breast: Reports system reviewed and no additional complaints, except as documented and Denies rash Neurologic Neurologic: Reports system reviewed and no additional complaints, except as documented, Reports as per HPI and Denies headache(s) Psychiatric Psychiatric: Reports system reviewed and no additional complaints, except as documented, Reports anxiety and Reports panic attacks Past Medical History Past Medical History NEUROLOGIC: Positive Seizures and Migraine; Negative Neurological Disorders CARDIAC: Negative Cardiac Disorders or Congestive Heart Failure RESPIRATORY: Positive Asthma; Negative Chronic Obstructive Pulmonary Disease (COPD) GASTROINTESTINAL: Negative Gastrointestinal Disorders GENITOURINARY: Negative Genitourinary Disorders or Renal Disease MUSCULOSKELETAL: Negative Musculoskeletal Disorders ENDOCRINE: Negative Endocrine Disorders, Diabetes Mellitus Type 1 or Diabetes Mellitus Type 2 HEMATOLOGIC: Positive Anemia; Negative Blood Disorders or Sickle Cell Disease Family History FAMILY HISTORY: Positive Family Cancer (Breat Cancer with pt's aunt, pt's grandpa with leukemia) Surgical History SURGICAL: Positive Oral Surgery (Dental Surgery 2017) Social History SMOKING STATUS: Never smoker SUBSTANCE USE: does not use ED Exam General Limitations: Present no limitations General appearance: Present alert and in no apparent distress Head Head exam: Present atraumatic, normocephalic and normal inspection Eye Eye exam: Present normal appearance, PERRL and EOMI ENT ENT exam: Present normal exam, normal oropharynx and mucous membranes moist Neck Neck exam: Present normal inspection, full ROM and trachea midline Chest Chest inspection: Present normal inspection and symmetric chest wall rise Respiratory Respiratory exam: Present normal lung sounds bilaterally; Absent respiratory distress Cardiovascular Cardiovascular exam: Present regular rate, normal rhythm and normal heart sounds; Absent bradycardia or tachycardia Abdominal Exam Abdominal exam: Present soft and normal bowel sounds; Absent distention, tenderness, guarding, rebound or rigidity Extremities Exam Extremities exam: Present normal inspection and full ROM Back Exam Back exam: Present normal inspection and full ROM Neurological Exam Neurological exam: Present alert, oriented X3, CN II-XII intact, normal gait and reflexes normal; Absent motor sensory deficit Psychiatric Psychiatric exam: Present normal affect and normal mood Skin Skin exam: Present warm, dry, intact and normal color; Absent rash Course Quality Measures none Vital Signs Vital signs: Vital Signs Temperature 98.2 F 07/18/24 13:30 Pulse Rate 95 07/18/24 13:30 Respiratory Rate 20 07/18/24 13:30 Blood Pressure 148/92 H 07/18/24 13:30 Pulse Oximetry (%) 100 07/18/24 13:30 Oxygen Delivery Method Room Air 07/18/24 13:30 O2 saturation 100% room air with normal limits Discharge Plan Plan Patient Disposition: HOME (Self Care) Disposition Comment: Stable Prescriptions/Referrals Prescriptions/Med Rec: No Action albuterol sulfate 90 mcg/actuation HFA aerosol inhaler 2 puff INH Q6H PRN (Reason: Shortness Of Breath Or Wheezing) meclizine 25 mg Tablet 25 mg PO BID PRN (Reason: Dizziness) meclizine 50 mg tablet 50 mg PO BID PRN (Reason: motion sickness) Qty: 14 0RF oxcarbazepine 300 mg tablet 300 mg PO BID Qty: 60 0RF rizatriptan [Maxalt-RUN LEAD] 10 mg tablet,disintegrating See Rx Instructions .ROUTE .COMPLEX Qty: 30 0RF Rx Instructions: take 1 tab at onset of headache; if no relief may repeat 1 tab after at least 2 hrs; max = 3 tabs/24 hr meclizine 25 mg tablet 25 mg PO QDAY PRN (Reason: dizziness) Qty: 20 0RF meclizine 25 mg tablet 25 mg PO QDAY PRN (Reason: dizziness) Qty: 20 0RF alprazolam [Xanax] 0.5 mg tablet 0.5 mg PO BID PRN (Reason: anxiety) Qty: 14 0RF meclizine 25 mg tablet 25 mg PO TID PRN (Reason: dizziness) Qty: 14 0RF ondansetron 4 mg tablet,disintegrating 4 mg PO Q8H PRN (Reason: nausea and vomiting) Qty: 10 0RF ibuprofen 600 mg tablet 600 mg PO Q6H Qty: 30 0RF ondansetron 4 mg tablet,disintegrating 4 mg PO Q6H PRN (Reason: nausea and vomiting) Qty: 14 0RF scopolamine base [Transderm-Scop] 1 mg over 3 days patch 3 day 1 mg topical .Q3Day Qty: 10 0RF Problem List Clinical Impression: Neck pain, Anxiety Patient/Caregiver Discharge Instructions Education Materials: ED Back Care Tips Additional Instructions: Please follow up with your primary care doctor in the next 24-48hrs for any worsening symptoms return here immediately Print Language: [place] Stand Alone Forms: [employer] Award Info., Patient Portal Info Letter PA/VITICULTURE TEACHER Supervising Physician PA/JANEE Supervising Physician: Dr. davey THORNE Patient Acuity Low Acuity (complete MDM as needed) Narrative: 33-year-old female with medical history significant for anxiety, stress, chronic headaches and dizziness presents for concerns for right-sided headache intermittently for the last couple of weeks On exam patient well-appearing patient does not appear ill or toxic no acute distress Patient was offered lab work and imaging patient declined both Patient has no abnormal neurological findings patient walks with steady gait patient does appear to be anxious patient reports that she has Ativan at home Patient discharged home in no distress to follow-up with primary care doctor in the next 24 to 48 hours and for any worsening symptoms to return to the ER immediately Clinical Information Provided by: patient Medical Records reviewed [facility] Meds/Rx considered, not ordered None Labs/Rad/Tests considered, not ordered None Chronic Illness/Social Conditions which may negatively complicate care or outcome(s)-explain: None or not applicable EKG EKG not done Labs Labs: none Imaging Imaging interpretation: none or see narrative above Medication Administration(s) none Diagnosis Differential Diagnosis ED Complaint MDM: Anxiety, depression, stress reaction Diagnoses ruled out: Stress reaction
== END 2024-07-18 13:54 | disposition home or self-care (01) ==
LOC: SERX 13:56
PROVIDERS: Emergency Provider Emergency Medicine
DX: M54.2 Cervicalgia (principal); F41.9 Anxiety disorder, unspecified
CPT/HCPCS: 99281

== ENCOUNTER 2024-10-06 13:37 | Emergency (ER) | payer MEDICAID, SELFPAY ==
[2024-10-06 13:50] VITALS: BP 117/73; PULSE 97; RESP 17; TEMP 37.1; O2SAT 100; BMI 23.1
--- NOTE | 2024-10-06 14:33 | PD.EDDIZZY ---
ED Dizzyness RME/HPI General Chief Complaint: Syncope / Near Syncope Stated Complaint: NEAR SYNCOPE Time Seen by Provider: 10/06/24 14:04 Source: patient and EMS Arrival date/time: 10/06/24 13:37 Mode of arrival: EMS Limitations: no limitations RME / HPI RME / HPI Narrative: 34-year-old female was brought in by EMS for near syncope, vertigo, and headaches. This started 1 to 2 days ago. Patient has a long history of this and is actually followed by neurology at [place]. She has had past MRIs that were unremarkable. She states that her symptoms start on or near the onset of her menstrual cycles. She also has a history of significant anxiety and takes Xanax, 0.5 mg, twice daily for this. She has taken meclizine at home for this. She denies any falls or injuries. She is taken ferrous sulfate in the past for iron deficiency anemia. Has no history of blood transfusions. She has no other acute complaints. Related Data Home Medications ?Medication ?Instructions ?Recorded ?Confirmed albuterol sulfate 90 mcg/actuation 2 puff inhalation Q6H PRN 12/02/18 05/28/21 aerosol inhaler Shortness Of Breath Or Wheezing meclizine 25 mg tablet 25 mg PO BID PRN Dizziness 05/28/21 05/28/21 Previous Rx's ?Medication ?Instructions ?Recorded meclizine 50 mg tablet 50 mg PO BID PRN motion sickness 05/28/21 #14 tabs oxcarbazepine 300 mg tablet 300 mg PO BID #60 tabs 07/17/21 rizatriptan 10 mg disintegrating See Rx Instructions PO .COMPLEX 10/21/22 tablet (Maxalt-PUBLICATIONS INSPECTOR) #30 tabs meclizine 25 mg tablet 25 mg PO TID PRN dizziness #14 tabs 10/28/22 ondansetron 4 mg disintegrating 4 mg PO Q8H PRN nausea and 10/28/22 tablet vomiting #10 tabs meclizine 25 mg tablet 25 mg PO QDAY PRN dizziness #20 02/13/23 tabs meclizine 25 mg tablet 25 mg PO QDAY PRN dizziness #20 08/21/23 tabs ibuprofen 600 mg tablet 600 mg PO Q6H #30 tabs 11/01/23 ondansetron 4 mg disintegrating 4 mg PO Q6H PRN nausea and 11/01/23 tablet vomiting #14 tabs scopolamine base 1 mg over 3 days 1 mg topical .Q3Day #10 ea 03/07/24 transdermal patch (Transderm-Scop) alprazolam 0.5 mg tablet (Xanax) 0.5 mg PO BID PRN anxiety #14 tabs 04/12/24 Allergies Allergy/AdvReac Type Severity Reaction Status Date / Time ciprofloxacin Allergy Severe RASH Verified 10/06/24 14:52 Review of Systems Review of Systems Systems Reviewed: All systems reviewed, normal except as documented ED Exam General Limitations: Present no limitations General appearance: Present alert and in no apparent distress Head Head exam: Present atraumatic Eye Eye exam: Present normal appearance, PERRL and EOMI ENT ENT exam: Present normal exam, normal oropharynx and mucous membranes moist Neck Neck exam: Present normal inspection, full ROM and trachea midline Chest Chest inspection: Present normal inspection and symmetric chest wall rise Respiratory Respiratory exam: Present normal lung sounds bilaterally Cardiovascular Cardiovascular exam: Present regular rate, normal rhythm and normal heart sounds Abdominal Exam Abdominal exam: Present soft and normal bowel sounds Extremities Exam Extremities exam: Present normal inspection and full ROM Back Exam Back exam: Present normal inspection and full ROM Neurological Exam Neurological exam: Present alert and oriented X3 Psychiatric Psychiatric exam: Present other (Speech is rapid and pressured. Thought processes circumferential. Patient is anxious appearing.) Skin Skin exam: Present warm, dry, intact and normal color Course Quality Measures none Orders Category Date Time Status CBC [CBC] Stat Lab 10/06/24 02:52 Completed CMP [Comprehensive Metabolic Panel] Stat Lab 10/06/24 02:52 Completed HCG Qualitative,Urine Stat Lab 10/06/24 15:11 Completed Lipase Stat Lab 10/06/24 02:52 Completed UA, C/S IF [Urinalysis, C/S if Indicated] Stat Lab 10/06/24 15:11 Completed Vital Signs Vital signs: Vital Signs Temperature 98.7 F 10/06/24 13:50 Pulse Rate 97 10/06/24 13:50 Respiratory Rate 17 10/06/24 13:50 Blood Pressure 117/73 10/06/24 13:50 Pulse Oximetry (%) 100 10/06/24 13:50 Oxygen Delivery Method Room Air 10/06/24 13:50 Dizziness MDM Narrative MDM Narrative:: 34-year-old female was brought in by EMS for near syncope, vertigo, and headaches. This started 1 to 2 days ago. Patient has a long history of this and is actually followed by neurology at [place]. She has had past MRIs that were unremarkable. She states that her symptoms start on or near the onset of her menstrual cycles. She also has a history of significant anxiety and takes Xanax, 0.5 mg, twice daily for this. She has taken meclizine at home for this. She denies any falls or injuries. She is taken ferrous sulfate in the past for iron deficiency anemia. Has no history of blood transfusions. She has no other acute complaints. On exam, patient is anxious appearing but nontoxic appearing. Vital signs are stable. CBC reveals no leukocytosis or significant anemia. Metabolic panel reveals no metabolic derangement. Urinalysis is unremarkable. I do believe the patient is stable for discharge. Possible she has, related headaches. This discussed with patient. She states she has she has a upcoming appointment with gynecology to discuss hormone mediation. 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 Return as needed for any worsening emergent changes. Patient data External records reviewed:: EMS form Clinical information provided by:: patient and EMS Social determinants that could affect healthcare access:: mental health Patient has the following chronic illnesses:: Chronic headaches, anxiety How is presenting disease/condition affected by chronic disease/condition?: exacerbated by Evaluation data The following diagnostics were reviewed and interpreted by me:: lab results (No leukocytosis, anemia, or metabolic derangement) Lab and/or radiology exams considered but not ordered:: n/a Interpretation Summary: Workup was unremarkable Medications / Prescriptions Medications or Prescriptions considered but not ordered:: n/a Medication administrations:: n/a Consultations Consultation(s) initiated? (list below): No Diagnosis Dizziness Differential Diagnosis: benign paroxysmal positional vertigo, orthostatic hypotension and vertebral basilar insufficiency Most likely diagnosis given after review of the tests above:: n/a Admission Indicated Admission indicated?: not indicated Admission Request Was there a request for admission?: No Disposition Plan Disposition Plan: Discharge Discharge Attestation Discharge Attestation: The patient and all family members were given an opportunity to ask questions and understood the discharge instructions. Discharge instructions specifically effects, indications for sooner follow up or return to the emergency department, and the expected course of current diagnosis. Patient condition: Stable Discharge Plan Plan Patient Disposition: HOME (Self Care) Patient condition on transfer: Stable Prescriptions/Referrals Prescriptions/Med Rec: No Action albuterol sulfate 90 mcg/actuation HFA aerosol inhaler 2 puff INH Q6H PRN (Reason: Shortness Of Breath Or Wheezing) meclizine 25 mg Tablet 25 mg PO BID PRN (Reason: Dizziness) meclizine 50 mg tablet 50 mg PO BID PRN (Reason: motion sickness) Qty: 14 0RF oxcarbazepine 300 mg tablet 300 mg PO BID Qty: 60 0RF rizatriptan [Maxalt-PUBLICATIONS INSPECTOR] 10 mg tablet,disintegrating See Rx Instructions .ROUTE .COMPLEX Qty: 30 0RF Rx Instructions: take 1 tab at onset of headache; if no relief may repeat 1 tab after at least 2 hrs; max = 3 tabs/24 hr meclizine 25 mg tablet 25 mg PO QDAY PRN (Reason: dizziness) Qty: 20 0RF meclizine 25 mg tablet 25 mg PO QDAY PRN (Reason: dizziness) Qty: 20 0RF alprazolam [Xanax] 0.5 mg tablet 0.5 mg PO BID PRN (Reason: anxiety) Qty: 14 0RF meclizine 25 mg tablet 25 mg PO TID PRN (Reason: dizziness) Qty: 14 0RF ondansetron 4 mg tablet,disintegrating 4 mg PO Q8H PRN (Reason: nausea and vomiting) Qty: 10 0RF ibuprofen 600 mg tablet 600 mg PO Q6H Qty: 30 0RF ondansetron 4 mg tablet,disintegrating 4 mg PO Q6H PRN (Reason: nausea and vomiting) Qty: 14 0RF scopolamine base [Transderm-Scop] 1 mg over 3 days patch 3 day 1 mg topical .Q3Day Qty: 10 0RF Referrals: Sushila Valdez PA-C [Primary Care Provider] - In 1 week Problem List Clinical Impression: Acute headache, Anxiety Patient/Caregiver Discharge Instructions Education Materials: Anxiety Disorders Tx Therapy, Self-Care for Headaches Additional Instructions: - Follow-up with your primary doctor and gynecology. - Return here as needed for any worsening or emergent changes. Print Language: Kiswahili Stand Alone Forms: [facility] Award Info., Patient Portal Info Letter
[2024-10-06 14:35] VITALS: PULSE 140; RESP 18; O2SAT 99
[2024-10-06 14:53] VITALS: BP 108/63; PULSE 82; RESP 19; TEMP 37.3; O2SAT 100; BMI 23.6
[2024-10-06 15:01] LABS: Basophils # (Auto) 0.0 Thou/mm3 (0.0-0.2); Basophils % (Auto) 0 % (0-2.5); Eosinophils # (Auto) 0.0 Thou/mm3 (0.0-0.5); Eosinophils % (Auto) 0 % (0-10); Hematocrit 34.1 % (36.0-46.0); Hemoglobin 11.5 g/dL (12.0-16.0); Immature Granulocytes Auto 0.02 Thou/mm3 (0.00-0.00); Lymphocytes # (Auto) 0.9 Thou/mm3 (1.0-4.8); Lymphocytes % (Auto) 11 % (10-50); Mean Corpuscular HGB Conc 33.7 g/dl (31.0-37.0); Mean Corpuscular Hemoglobin 25.2 pg (25.0-35.0); Mean Corpuscular Volume 75 fL (80-100); Monocytes # (Auto) 0.4 Thou/mm3 (0.0-0.8); Monocytes % (Auto) 6 % (0-12); Neutrophils # (Auto) 6.4 Thou/mm3 (1.8-7.7); Neutrophils % (Auto) 82 % (37-80); Nucleated Red Blood Cell # 0.00 Thou/mm3 (0.00-0.00); Nucleated Red Blood Cell % 0 /100 WBC (0); Platelet Count 224 Thou/mm3 (140-440); RDW Standard Deviation 39.4 fL (36.4-46.3); Red Blood Count 4.57 Miln/mm3 (4.00-5.20); White Blood Count 7.8 Thou/mm3 (3.6-11.0)
[2024-10-06 15:20] LABS: Collection Type, Urine Voided; WBC,Urine 0 /hpf (0-5)
[2024-10-06 15:26] LABS: HCG Qualitative,Urine Negative
[2024-10-06 15:28] LABS: Bacteria,Urine Rare; Bilirubin,Urine Negative (Negative); Blood,Urine 1+ (Negative); Clarity,Urine Clear (Clear/Hazy); Color,Urine Lt-Yellow (Lt Yel-Yel); Culture Indicated,Urine Not Indicated; Glucose, Urine Negative (Negative); Hyaline Casts,Urine < 1 /hpf (0-1); Ketones,Urine Negative (Negative); Leukocyte Esterase,Urine Positive (Negative); Nitrite,Urine Negative (Negative); PH,Urine 8.0 (5.0-7.0); Protein,Urine Negative (Neg - Trace); RBC,Urine 10 /hpf (0-3); Specific Gravity,Urine 1.019 (1.001-1.035); Squamous Epithelial Cell,Urine 2 /hpf (0-5); Urobilinogen,Urine Negative mg/dL (0.0-1.0)
[2024-10-06 15:29] LABS: Alanine Aminotransferase 9 U/L (10-49); Albumin, Serum 4.7 gm/dL (3.5-5.0); Albumin/Globulin Ratio 1.6 (1.2-2.2); Alkaline Phosphatase 64 U/L (46-116); Anion Gap 10 (7-16); Aspartate Amino Transferase 14 U/L (0-34); BUN/Creatinine Ratio 15 Ratio (12-20); Bilirubin,Total 0.5 mg/dL (0.3-1.2); Blood Urea Nitrogen 12 mg/dL (9-23); Calcium 9.5 mg/dL (8.3-10.6); Calcium (Corrected) 9.5 mg/dL (8.5-10.1); Carbon Dioxide 23.7 mMol/L (20.0-31.0); Chloride 108 mMol/L (98-107); Creatinine (Component) 0.8 mg/dL (0.6-1.3); Estimated Creatinine Clearance 85.6 mL/min (>60); Globulin 3.0 gm/dL (2.3-3.5); Glucose 106 mg/dL (74-106); Lipase 44 U/L (12-53); Osmolality,Calculated 282 (275-295); Potassium 4.0 mMol/L (3.4-5.1); Sodium 142 mMol/L (136-145); Total Protein 7.7 gm/dL (5.7-8.2); eGFR > 60 See Note
[2024-10-06 17:13] VITALS: BP 108/63; PULSE 70; RESP 20; TEMP 36.8; O2SAT 100
[2024-10-06 17:52] VITALS: BP 123/72; PULSE 91; RESP 16; TEMP 36.9; O2SAT 100
== END 2024-10-06 17:56 | disposition home or self-care (01) ==
PROVIDERS: Physician Assistant Medical; Emergency Provider Family Medicine; PCP Physician Assistant
DX: F41.9 Anxiety disorder, unspecified (principal); R51.9 Headache, unspecified
CPT/HCPCS: 36415; 80053; 81001; 81025; 83690; 85025; 99283

== ENCOUNTER 2024-10-11 22:15 | Emergency (ER) | payer MEDICAID, SELFPAY ==
[2024-10-11 22:22] VITALS: PULSE 120; O2SAT 99
[2024-10-11 22:25] VITALS: BMI 23.1
[2024-10-11 22:30] VITALS: BP 110/71; PULSE 98; RESP 12; TEMP 37.9; O2SAT 100
[2024-10-11 22:41] VITALS: PULSE 96
[2024-10-11 23:53] LABS: Collection Type, Urine Clean Catch
--- NOTE | 2024-10-11 23:54 | PD.EDVAGBL ---
ED OB Contraction Preg RMI/HPI General Chief complaint: Vaginal Bleeding Stated complaint: DIZZINESS/HEADACHE Time Seen by Provider: 10/11/24 23:32 Arrival date/time: 10/11/24 22:15 RME / HPI RME / HPI Narrative: DR. 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 She stood up after having dinner and experienced dizziness and blurry vision. Patient also reports passing 2 large blood clots this morning and earlier tonight. Denies use of control and any chance of . Denies dysuria and foul smelling urine. Patient has an upcoming appointment with an PRODUCT [facility]ANGELIST to F/U about her heavy cycles spanning over several years. Last menstrual period: 09/03/24 Related Data Home Medications ?Medication ?Instructions ?Recorded ?Confirmed albuterol sulfate 90 mcg/actuation 2 puff inhalation Q6H PRN 12/02/18 05/28/21 aerosol inhaler Shortness Of Breath Or Wheezing meclizine 25 mg tablet 25 mg PO BID PRN Dizziness 05/28/21 05/28/21 Previous Rx's ?Medication ?Instructions ?Recorded meclizine 50 mg tablet 50 mg PO BID PRN motion sickness 05/28/21 #14 tabs oxcarbazepine 300 mg tablet 300 mg PO BID #60 tabs 07/17/21 rizatriptan 10 mg disintegrating See Rx Instructions PO .COMPLEX 10/21/22 tablet (Maxalt-STOCK TRACER) #30 tabs meclizine 25 mg tablet 25 mg PO TID PRN dizziness #14 tabs 10/28/22 ondansetron 4 mg disintegrating 4 mg PO Q8H PRN nausea and 10/28/22 tablet vomiting #10 tabs meclizine 25 mg tablet 25 mg PO QDAY PRN dizziness #20 02/13/23 tabs meclizine 25 mg tablet 25 mg PO QDAY PRN dizziness #20 08/21/23 tabs ibuprofen 600 mg tablet 600 mg PO Q6H #30 tabs 11/01/23 ondansetron 4 mg disintegrating 4 mg PO Q6H PRN nausea and 11/01/23 tablet vomiting #14 tabs scopolamine base 1 mg over 3 days 1 mg topical .Q3Day #10 ea 03/07/24 transdermal patch (Transderm-Scop) alprazolam 0.5 mg tablet (Xanax) 0.5 mg PO BID PRN anxiety #14 tabs 04/12/24 Allergies Allergy/AdvReac Type Severity Reaction Status Date / Time ciprofloxacin Allergy Severe RASH Verified 10/11/24 22:21 Review of Systems Review of Systems Systems Reviewed: All systems reviewed, normal except as documented Past Medical History Past Medical History NEUROLOGIC: Positive Seizures and Migraine RESPIRATORY: Positive Asthma HEMATOLOGIC: Positive Anemia Surgical History SURGICAL: Positive Oral Surgery ED Exam Narrative Physical exam: GENERAL APPEARANCE: alert and oriented x 4, well-developed, well-nourished, no acute distress, appears anxious VITALS: All vitals were reviewed and the pulse ox is 98% on room air, which is normal according to my interpretation. HEENT: Normocephalic, atraumatic; pupils equal, round, reactive to light; EOMI; mucous membranes pink, moist; oropharynx clear NECK: Supple LUNGS: CTABL; no wheezes, no rales, no rhonchi HEART: Regular rate, regular rhythm; normal S1, S2; no murmurs ABDOMEN: non distended; normal BS; soft, no tenderness, no guarding, no rebound; no masses, no organomegaly, no hernia BACK: no CVA tenderness EXTREMITIES: atraumatic; no edema NEUROLOGIC: awake; alert and oriented x4; cranial nerves II-XII grossly intact; no focal sensory or motor deficits PSYCHIATRIC: appropriate mood and affect, appears anxious SKIN: warm, dry, normal color; no rashes Course Quality Measures none Orders Category Date Time Status Supervisor Maintenance Q4H START 00 Care 10/11/24 22:41 Completed Insert IV NOW Care 10/11/24 22:42 Completed CBC Stat Lab 10/11/24 22:30 Completed CMP [Comprehensive Metabolic Panel] Stat Lab 10/11/24 22:30 Completed HCG,Qualitative Serum Stat Lab 10/11/24 22:30 Completed Type and Screen Stat Lab 10/11/24 22:30 Completed UA, C/S IF [Urinalysis, C/S if Indicated] Stat Lab 10/11/24 22:30 Completed Acetaminophen Tab [Tylenol Tab] Med 10/12/24 00:29 Discontinued 650 mg PO X1 ONE Vital Signs Vital signs: Vital Signs Temperature 100.3 F 10/11/24 22:30 Pulse Rate 98 10/11/24 22:30 Respiratory Rate 12 10/11/24 22:30 Blood Pressure 110/71 10/11/24 22:30 Pulse Oximetry (%) 100 10/11/24 22:30 Oxygen Delivery Method Room Air 10/11/24 22:30 Vaginal Bleeding MDM Narrative MDM Narrative: Scribe Attestation: I, Joyce Juarez, am scribing for and in the presence of Dr. Berger. Provider Notation: Although this document has been carefully reviewed, there may still be some phonetic and other typographical errors.? These errors are purely grammatical due to imperfections in the software program and should not be construed in any way to? compromise the substance of the patient's medical care during this visit. Patient data External records reviewed:: [facility] previous records (Reviewed prior ED records from 10/06/24. Patient was seen for Acute headache.) Clinical information provided by:: patient Social determinants that could affect healthcare access:: none Patient has the following chronic illnesses:: Seizures, Migraine, Asthma, Anemia How is presenting disease/condition affected by chronic disease/condition?: exacerbated by Evaluation data The following diagnostics were reviewed and interpreted by me:: lab results Lab and/or radiology exams considered but not ordered:: None Interpretation Summary: Labs Lab work is unremarkable. Medications / Prescriptions Medications or Prescriptions considered but not ordered:: None Medication administrations:: Medication Administration History Discontinued Medications Acetaminophen (Acetaminophen 325 Mg Tablet) 650 mg PO X1 ONE Stop: 10/12/24 00:30 Last Admin: 10/12/24 00:42 Dose: 650 mg Documented By: BD See above Consultations Consultation(s) initiated? (list below): No Diagnosis Vaginal Bleeding Differential Diagnosis: missed , threatened , dysfunctional uterine bleeding, menometrorrhagia, incomplete , ectopic without intrauterine and vaginal bleeding Most likely diagnosis given after review of the tests above:: Dizziness, Headache Admission Indicated Admission indicated?: not indicated Explain why admission is indicated or not indicated:: Patient does not meet admission criteria. Admission Request Was there a request for admission?: No Disposition Plan Disposition Plan: Discharge Discharge Attestation Discharge Attestation: The patient and all family members were given an opportunity to ask questions and understood the discharge instructions. Discharge instructions specifically effects, indications for sooner follow up or return to the emergency department, and the expected course of current diagnosis. Patient condition: Stable Discharge Plan Plan Patient Disposition: HOME (Self Care) Prescriptions/Referrals Prescriptions/Med Rec: No Action albuterol sulfate 90 mcg/actuation HFA aerosol inhaler 2 puff INH Q6H PRN (Reason: Shortness Of Breath Or Wheezing) meclizine 25 mg Tablet 25 mg PO BID PRN (Reason: Dizziness) meclizine 50 mg tablet 50 mg PO BID PRN (Reason: motion sickness) Qty: 14 0RF oxcarbazepine 300 mg tablet 300 mg PO BID Qty: 60 0RF rizatriptan [Maxalt-STOCK TRACER] 10 mg tablet,disintegrating See Rx Instructions .ROUTE .COMPLEX Qty: 30 0RF Rx Instructions: take 1 tab at onset of headache; if no relief may repeat 1 tab after at least 2 hrs; max = 3 tabs/24 hr meclizine 25 mg tablet 25 mg PO QDAY PRN (Reason: dizziness) Qty: 20 0RF meclizine 25 mg tablet 25 mg PO QDAY PRN (Reason: dizziness) Qty: 20 0RF alprazolam [Xanax] 0.5 mg tablet 0.5 mg PO BID PRN (Reason: anxiety) Qty: 14 0RF meclizine 25 mg tablet 25 mg PO TID PRN (Reason: dizziness) Qty: 14 0RF ondansetron 4 mg tablet,disintegrating 4 mg PO Q8H PRN (Reason: nausea and vomiting) Qty: 10 0RF ibuprofen 600 mg tablet 600 mg PO Q6H Qty: 30 0RF ondansetron 4 mg tablet,disintegrating 4 mg PO Q6H PRN (Reason: nausea and vomiting) Qty: 14 0RF scopolamine base [Transderm-Scop] 1 mg over 3 days patch 3 day 1 mg topical .Q3Day Qty: 10 0RF Referrals: Sushila Valdez PA-C [Primary Care Provider] - In 1 week Problem List Clinical Impression: Dizziness, Headache Patient/Caregiver Discharge Instructions Education Materials: Self-Care for Headaches, ED Dizziness, Uncertain Cause Print Language: Iranian Stand Alone Forms: Graciela Award Info., Patient Portal Info Letter
[2024-10-12 00:01] LABS: Basophils # (Auto) 0.0 Thou/mm3 (0.0-0.2); Basophils % (Auto) 0 % (0-2.5); Eosinophils # (Auto) 0.1 Thou/mm3 (0.0-0.5); Eosinophils % (Auto) 2 % (0-10); Hematocrit 34.3 % (36.0-46.0); Hemoglobin 11.3 g/dL (12.0-16.0); Immature Granulocytes Auto 0.02 Thou/mm3 (0.00-0.00); Lymphocytes # (Auto) 2.7 Thou/mm3 (1.0-4.8); Lymphocytes % (Auto) 37 % (10-50); Mean Corpuscular HGB Conc 32.9 g/dl (31.0-37.0); Mean Corpuscular Hemoglobin 24.9 pg (25.0-35.0); Mean Corpuscular Volume 76 fL (80-100); Monocytes # (Auto) 0.5 Thou/mm3 (0.0-0.8); Monocytes % (Auto) 7 % (0-12); Neutrophils # (Auto) 3.9 Thou/mm3 (1.8-7.7); Neutrophils % (Auto) 54 % (37-80); Nucleated Red Blood Cell # 0.00 Thou/mm3 (0.00-0.00); Nucleated Red Blood Cell % 0 /100 WBC (0); Platelet Count 245 Thou/mm3 (140-440); RDW Standard Deviation 40.1 fL (36.4-46.3); Red Blood Count 4.54 Miln/mm3 (4.00-5.20); White Blood Count 7.3 Thou/mm3 (3.6-11.0)
[2024-10-12 00:07] LABS: Bilirubin,Urine Negative (Negative); Blood,Urine 3+ (Negative); Clarity,Urine Turbid (Clear/Hazy); Color,Urine Red (Lt Yel-Yel); Culture Indicated,Urine Not Indicated; Glucose, Urine Negative (Negative); Ketones,Urine Negative (Negative); Leukocyte Esterase,Urine Negative (Negative); Nitrite,Urine Negative (Negative); PH,Urine 6.0 (5.0-7.0); Protein,Urine 1+ (Neg - Trace); RBC,Urine 3853 /hpf (0-3); Specific Gravity,Urine 1.031 (1.001-1.035); Squamous Epithelial Cell,Urine 1 /hpf (0-5); Urobilinogen,Urine Negative mg/dL (0.0-1.0); WBC,Urine 2 /hpf (0-5)
[2024-10-12 00:10] LABS: HCG,Qualitative Serum Negative
[2024-10-12 00:25] LABS: Alanine Aminotransferase < 7 U/L (10-49); Albumin, Serum 4.9 gm/dL (3.5-5.0); Albumin/Globulin Ratio 1.6 (1.2-2.2); Alkaline Phosphatase 70 U/L (46-116); Anion Gap 13 (7-16); Aspartate Amino Transferase 15 U/L (0-34); BUN/Creatinine Ratio 18 Ratio (12-20); Bilirubin,Total 0.3 mg/dL (0.3-1.2); Blood Urea Nitrogen 16 mg/dL (9-23); Calcium 9.6 mg/dL (8.3-10.6); Calcium (Corrected) 9.6 mg/dL (8.5-10.1); Carbon Dioxide 21.3 mMol/L (20.0-31.0); Chloride 109 mMol/L (98-107); Creatinine (Component) 0.9 mg/dL (0.6-1.3); Estimated Creatinine Clearance 76.1 mL/min (>60); Globulin 3.1 gm/dL (2.3-3.5); Glucose 98 mg/dL (74-106); Osmolality,Calculated 286 (275-295); Potassium 3.5 mMol/L (3.4-5.1); Sodium 143 mMol/L (136-145); Total Protein 8.0 gm/dL (5.7-8.2); eGFR > 60 See Note
[2024-10-12] MEDS: ACETAMINOPHEN 325 MG TABLET 650 MG PO (00:42)
[2024-10-12 01:10] VITALS: BP 100/56; PULSE 68; RESP 16; TEMP 37.2; O2SAT 100
== END 2024-10-12 01:33 | disposition home or self-care (01) ==
PROVIDERS: Emergency Provider Emergency Medicine; PCP Physician Assistant
DX: R42 Dizziness and giddiness (principal); R51.9 Headache, unspecified
CPT/HCPCS: 36415; 80053; 81001; 84703; 85025; 86850; 86900; 86901; 99283; A9270

== ENCOUNTER 2024-10-24 13:59 | Emergency (ER) | payer MEDICAID, SELFPAY ==
[2024-10-24 14:12] VITALS: PULSE 125; RESP 24; BMI 22.3
--- NOTE | 2024-10-24 14:21 | EDNOTE_ITS ---
ED Dizzyness RME/HPI General Chief Complaint: Headache Stated Complaint: LOW BP Time Seen by Provider: 10/24/24 14:47 Arrival date/time: 10/24/24 13:59 Limitations: no limitations RME / HPI RME / HPI Narrative: DR. FRANCO MAIN ED EVALUATION: 34-year-old female with past medical history of prolactin-related hormonal imbalance but still in the process of figuring out what is wrong presents to the Emergency Department BIBA from home with complaint of dizziness and vertigo ongoing for 3 weeks, worsened today with pounding, severe headache and visual changes, which began this morning. Patient reports nausea that resolved after receiving 4 mg of Zofran from EMS. No loss of consciousness, no associated neck stiffness. Hypotensive and clammy by EMS. She describes similar episodes in the past, often coinciding with her menstrual cycle. Last menstrual period was approximately October 08, and she believes these episodes tend to occur during her period. One episode of diarrhea noted yesterday. No known anemia, no history of blood transfusion, no recent travel. Patient has unintentionally lost weight from 173 lbs to 130 lbs. She is currently followed by her PCP, Phan Valdez. Meclizine reportedly helps the dizziness. No smoking, alcohol, or drug use. Patient had several MRIs in the past, last MRI in April 2022 and all were negative for tumors. Related Data Home Medications ?Medication ?Instructions ?Recorded ?Confirmed albuterol sulfate 90 mcg/actuation 2 puff inhalation Q 6H PRN 12/02/18 05/28/21 aerosol inhaler Shortness Of Breath Or Wheez ing meclizine 25 mg tablet 25 mg PO BID PRN Dizziness 0 05/28/21 05/28/21 Previous Rx's ?Medication ?Instructions ?Recorded meclizine 50 mg tablet 50 mg PO BID PRN motion sick ness 05/28/21 #14 tabs oxcarbazepine 300 mg tablet 300 mg PO BID #60 tabs rizatriptan 10 mg disintegrating See Rx Instructions P O .COMPLEX 10/21/22 tablet (Maxalt-SPARE HAND CARDING) #30 tabs meclizine 25 mg tablet 25 mg PO TID PRN dizziness # 14 tabs 10/28/22 ondansetron 4 mg disintegrating 4 mg PO Q8H PRN nausea and 10/28/22 tablet vomiting #10 tabs meclizine 25 mg tablet 25 mg PO QDAY PRN dizziness #20 02/13/23 tabs meclizine 25 mg tablet 25 mg PO QDAY PRN dizziness #20 08/21/23 tabs ibuprofen 600 mg tablet 600 mg PO Q6H #30 tabs 10/31 ondansetron 4 mg disintegrating 4 mg PO Q6H PRN nausea and 11/01/23 tablet vomiting #14 tabs scopolamine base 1 mg over 3 days 1 mg topical .Q3Day #10 ea 03/07/24 transdermal patch (Transderm-Scop) alprazolam 0.5 mg tablet (Xanax) 0.5 mg PO BID PRN anx iety #14 tabs 04/12/24 Allergies Allergy/AdvReac Type Severity Reaction Status Date / Time ciprofloxacin Allergy Severe RASH Verified 10/24/24 14:33 Review of Systems Review of Systems Systems Reviewed: All systems reviewed, normal except as documented Past Medical History Past Medical History NEUROLOGIC: Positive Seizures and Migraine RESPIRATORY: Positive Asthma HEMATOLOGIC: Positive Anemia Family History FAMILY HISTORY: Positive Family Cancer Surgical History SURGICAL: Positive Oral Surgery Social History SMOKING STATUS: Never smoker SUBSTANCE USE: does not use ALCOHOL: Never ED Exam General Limitations: Present no limitations General appearance: Present alert, in no apparent distress and other (unsteady gait) Head Head exam: Present atraumatic, normocephalic and normal inspection Eye Eye exam: Present normal appearance, PERRL and EOMI ENT ENT exam: Present normal exam, normal oropharynx and mucous membranes moist Neck Neck exam: Present normal inspection, full ROM and trachea midline Chest Chest inspection: Present normal inspection and symmetric chest wall rise Respiratory Respiratory exam: Present normal lung sounds bilaterally Cardiovascular Cardiovascular exam: Present regular rate, normal rhythm and normal heart sounds Abdominal Exam Abdominal exam: Present soft and normal bowel sounds Extremities Exam Extremities exam: Present normal inspection and full ROM Back Exam Back exam: Present normal inspection and full ROM Neurological Exam Neurological exam: Present alert, oriented X3, CN II-XII intact and other (unsteady gait) Psychiatric Psychiatric exam: Present normal affect and normal mood Skin Skin exam: Present warm, dry, intact and normal color Course Quality Measures none Orders Category Date Time Status EKG (ED ONLY) *Do not use* NOW Care 10/24/24 14:40 Completed CXR [XR chest 1V] Stat Exams 10/24/24 14:39 Completed EKG (ED Only) Stat Exams 10/24/24 14:40 Draft EKG (ED Only) Stat Exams 10/24/24 14:40 Ordered US pelvic complete Stat Exams 10/24/24 15:40 Completed BNP [B-Type Natriuretic Peptide] Stat Lab 10/24/24 15:09 Completed CBC Stat Lab 10/24/24 15:09 Completed CK [Creatine Kinase] Stat Lab 10/24/24 15:09 Completed CMP [Comprehensive Metabolic Panel] Stat Lab 10/24/24 15:09 Completed Chlamydia/GC/TV - PCR Stat Lab 10/24/24 Ordered Drug Screen,Urine Stat Lab 10/24/24 14:45 Completed HCG,Qualitative Serum Stat Lab 10/24/24 15:09 Completed Syphilis Stat Lab 10/24/24 15:56 Received T4 (Thyroxine) Stat Lab 10/24/24 15:09 Completed TSH [Thyroid Stimulating Hormone] Stat Lab 10/24/24 15:09 Completed Troponin I Stat Lab 10/24/24 15:09 Completed UA, C/S IF [Urinalysis, C/S if Indicated] Stat Lab 10/24/24 14:45 Completed Urine Culture Stat Lab 10/24/24 15:45 Ordered Acetaminophen Tab [Tylenol Tab] Med 10/24/24 15:44 Discontinued 650 mg PO X1 ONE Meclizine HCl [Antivert] Med 10/24/24 14:43 Discontinued 25 mg PO X1 ONE Vital Signs Vital signs: Vital Signs Temperature 98.6 F 10/24/24 14:34 Pulse Rate 88 10/24/24 14:34 Respiratory Rate 16 10/24/24 14:34 Blood Pressure 117/67 10/24/24 14:34 Pulse Oximetry (%) 100 10/24/24 14:34 Oxygen Delivery Method Room Air 10/24/24 14:34 Dizziness MDM Narrative MDM Narrative:: I, Gogo Person, am scribing for and in the presence of Dr. Franco. Patient is a 34-year-old female who is in the emergency department concerns for feeling lightheaded, dizzy, and weak. Vital signs and exam as below. Concern for urinary tract infection, dehydration, metabolic disturbance. Patient has a history of intermittent episodes of vertigo, palpitations, elevated prolactin. Patient has been dealing with similar episodes like this that have been very frequently, around the time of her menstrual period. Patient has had multiple CTs and MRIs. Patient has been evaluated thoroughly with regards to this complaint by her primary care doctor as well as specialists in [place]. Patient states that no abnormalities have been found on countless CTs and MRIs that have been performed on the patient. Patient states that she was here not too long ago with a similar symptoms. Had a CT at that time which was normal. Patient states that her symptoms are similar to all of her prior presentations, and was in the process of trying to take her home meclizine when she started feeling lightheaded and felt like she is in a pass out and so she called 911. When EMS arrived, noted that her blood pressures with systolic in the 80s. Provided patient with a liter of fluid which resulted in improvement in patient's hypotension. Also provided patient with Zofran that resulted in significant clinical improvement. Had joint decision-making conversation with patient, we will proceed with EKG chest x-ray labs and medications for symptom relief. Advised patient that it is important that she follow-up with her primary care doctor and request a referral to see an insole and outsole splitter as well as a neurologist for her symptoms. EKG without evidence of ischemia or arrhythmia, no acute hematologic abnormalities. Patient is non. Urinalysis with white blood cells squamous cell as well as leuk esterase. Patient does endorse mild dysuria however states that she usually feels this way after her menstrual cycle. At this time would like to hold off on being treated we will send the urine for culture. Patient was concerned about vaginal discharge that she has had on and off for many years. Also concern of right lower pelvic pain. Ordered pelvic ultrasound as well as chlamydia syphilis and HIV testing. On reevaluation patient symptoms of vertigo have completely resolved. Endorses a tension headache. Ordered Tylenol. Pelvic ultrasound with evidence of left follicular cyst, less than 5 cm, othe rwise no abnormalities with arterial flow. Patient is HIV negative. Rest of patient's labs are send outs. On reevaluation patient hemodynamically stable not in distress symptoms improved. Will discharge home with close return precautions follow-up with her primary care doctor as well as the recommendation that she sees an insole and outsole splitter as well as a neurologist. All questions answered. Patient ambulating safely. Patient data External records reviewed:: [facility] previous records and EMS form Clinical information provided by:: patient and EMS Social determinants that could affect healthcare access:: none Patient has the following chronic illnesses:: prolactin-related hormonal imbalance but still in the process of figuring out what is wrong. She is currently followed by her PCP, Phan Valdez. No smoking, alcohol, or drug use. Patient had several MRIs in the past, last MRI in April 2022 and all were negative for tumors. How is presenting disease/condition affected by chronic disease/condition?: exacerbated by Evaluation data The following diagnostics were reviewed and interpreted by me:: lab results, radiology exam(s) and EKG tracing(s) Lab and/or radiology exams considered but not ordered:: none Interpretation Summary: My interpretation: EKG performed at 1422 hours, sinus rhythm, rate 81, normal intervals, non specific ST-T wave changes, no cardiac alert Procedure(s): XR chest 1V Accession Number(s): [id number] cc: Salvador Delvalle MD; Rosie Franco MD; Sushila Valdez PA-C~ Examination: AP chest single view Technique one AP portable upright chest single view Date and time: October 24, 2024 1447 hours INDICATIONS: Chest pain today. FINDINGS: Normal heart size The lungs are clear. The osseous structures are intact IMPRESSION: No active disease Dictated By: Salvador Delvalle MD Medications / Prescriptions Medications or Prescriptions considered but not ordered:: none Medication administrations:: Medication Administration History Discontinued Medications Acetaminophen (Acetaminophen 325 Mg Tablet) 650 mg PO X1 ONE Stop: 10/24/24 15:45 Last Admin: 10/24/24 16:03 Dose: 650 mg Documented By: Meclizine HCl (Meclizine Hcl 25 Mg Tablet) 25 mg PO X1 ONE Stop: 10/24/24 14:44 Last Admin: 10/24/24 14:54 Dose: 25 mg Documented By: JOEY see above if any Consultations Consultation(s) initiated? (list below): No Diagnosis Dizziness Differential Diagnosis: benign paroxysmal positional vertigo, vertebral basilar insufficiency, transient cerebral ischemia and other (pituitary tumor with hormonal fluctuations, vestibular migraine) Most likely diagnosis given after review of the tests above:: Vertigo, pelvic pain Admission Indicated Admission indicated?: not indicated Admission Request Was there a request for admission?: No Disposition Plan Disposition Plan: Discharge Discharge Attestation Discharge Attestation: The patient and all family members were given an opportunity to ask questions and understood the discharge instructions. Discharge instructions specifically effects, indications for sooner follow up or return to the emergency department, and the expected course of current diagnosis. Patient condition: Stable Critical Care Time Critical Care Time Critical Care Time: Yes Total Critical Care Time (min.): 40 Attestation: The high probability of sudden, clinically significant deterioration in the patient?s condition required the highest level of my preparedness to intervene urgently. The services I provided to this patient were to treat and/or prevent clinically significant deterioration. Services included the following: chart data review, reviewing nursing notes and/or old charts, documentation time, senior telecommunications consultant collaboration regarding findings and treatment options, medication orders and management, direct patient care, vital sign assessments and ordering, inter preting and reviewing diagnostic studies and lab tests. Aggregate critical care time includes only time during which I was engaged in work directly related to the patient?s care, as described above, whether at bedside or elsewhere in the Emergency Department. It did not include time spent performing other reported procedures or the services of residents, students, nurses or physician assistants. Discharge Plan Plan Patient Disposition: HOME (Self Care) Prescriptions/Referrals Prescriptions/Med Rec: No Action albuterol sulfate 90 mcg/actuation HFA aerosol inhaler 2 puff INH Q6H PRN (Reason: Shortness Of Breath Or Wheezing) meclizine 25 mg Tablet 25 mg PO BID PRN (Reason: Dizziness) meclizine 50 mg tablet 50 mg PO BID PRN (Reason: motion sickness) Qty: 14 0RF oxcarbazepine 300 mg tablet 300 mg PO BID Qty: 60 0RF rizatriptan [Maxalt-SPARE HAND CARDING] 10 mg tablet,disintegrating See Rx Instructions .ROUTE .COMPLEX Qty: 30 0RF Rx Instructions: take 1 tab at onset of headache; if no relief may repeat 1 tab after at least 2 hrs; max = 3 tabs/24 hr meclizine 25 mg tablet 25 mg PO QDAY PRN (Reason: dizziness) Qty: 20 0RF meclizine 25 mg tablet 25 mg PO QDAY PRN (Reason: dizziness) Qty: 20 0RF alprazolam [Xanax] 0.5 mg tablet 0.5 mg PO BID PRN (Reason: anxiety) Qty: 14 0RF meclizine 25 mg tablet 25 mg PO TID PRN (Reason: dizziness) Qty: 14 0RF ondansetron 4 mg tablet,disintegrating 4 mg PO Q8H PRN (Reason: nausea and vomiting) Qty: 10 0RF ibuprofen 600 mg tablet 600 mg PO Q6H Qty: 30 0RF ondansetron 4 mg tablet,disintegrating 4 mg PO Q6H PRN (Reason: nausea and vomiting) Qty: 14 0RF scopolamine base [Transderm-Scop] 1 mg over 3 days patch 3 day 1 mg topical .Q3Day Qty: 10 0RF Referrals: Sushila Valdez PA-C [Primary Care Provider] - In 1 week Problem List Clinical Impression: Vertigo, Cyst, ovary, follicular Patient/Caregiver Discharge Instructions Education Materials: Ovarian Cysts Additional Instructions: Please establish care with a neurologist as well as an insole and outsole splitter to continue evaluation of your episodes of vertigo, headache related to your menstrual cycles. Print Language: Burmese Stand Alone Forms: [facility] Award Info., Patient Portal Info Letter
[2024-10-24 14:34] VITALS: BP 117/67; PULSE 88; RESP 16; TEMP 37; O2SAT 100
--- NOTE | 2024-10-24 14:39 | XR_ITS ---
Examination: AP chest single view Technique one AP portable upright chest single view Date and time: October 24, 2024 1447 hours INDICATIONS: Chest pain today. FINDINGS: Normal heart size The lungs are clear. The osseous structures are intact IMPRESSION: No active disease
--- NOTE | 2024-10-24 14:40 | EKG_ITS ---
[facility] Test Date: 2024-10-24 Pat Name: FRANCESCO DUNCAN Department: Room: - Gender: Female Manager Shipping: : 1990 Requested By: Rosie Nolasco Order Number: [id number] Reading MD: Rosie Nolasco Measurements Intervals [place] Rate: 81 P: 61 FL: 155 QRS: 94 QRSD: 86 T: 54 QT: 375 QTc: 438 Interpretive Statements SINUS RHYTHM BORDERLINE RIGHT AXIS DEVIATION [QRS AXIS > 90] Compared to ECG 06/27/2024 23:36:35 Sinus tachycardia no longer present T-wave abnormality no longer present /store/[id number]
[2024-10-24] MEDS: MECLIZINE HCL 25 MG TABLET PO (14:54)
[2024-10-24 14:55] LABS: Collection Type, Urine Clean Catch
[2024-10-24 15:10] LABS: Bilirubin,Urine Negative (Negative); Blood,Urine 1+ (Negative); Clarity,Urine Clear (Clear/Hazy); Color,Urine Lt-Yellow (Lt Yel-Yel); Culture Indicated,Urine Not Indicated; Glucose, Urine Negative (Negative); Ketones,Urine Negative (Negative); Leukocyte Esterase,Urine Positive (Negative); Nitrite,Urine Negative (Negative); PH,Urine 7.5 (5.0-7.0); Protein,Urine Trace (Neg - Trace); RBC,Urine 16 /hpf (0-3); Specific Gravity,Urine 1.021 (1.001-1.035); Squamous Epithelial Cell,Urine 4 /hpf (0-5); Urobilinogen,Urine Negative mg/dL (0.0-1.0); WBC,Urine 5 /hpf (0-5)
[2024-10-24 15:17] LABS: Amphetamine/Methamp Scrn,U Negative (Negative); Barbiturate Screen,Urine Negative (Negative); Benzodiazepines Screen,Urine Negative (Negative); Benzoylecgonine Screen, Ur Negative (Negative); Fentanyl Screen,Urine Negative (Negative); Opiate Screen,Urine Negative (Negative); THC Screen,Urine Negative (Negative)
[2024-10-24 15:23] LABS: Basophils # (Auto) 0.0 Thou/mm3 (0.0-0.2); Basophils % (Auto) 0 % (0-2.5); Eosinophils # (Auto) 0.0 Thou/mm3 (0.0-0.5); Eosinophils % (Auto) 0 % (0-10); Hematocrit 35.6 % (36.0-46.0); Hemoglobin 11.6 g/dL (12.0-16.0); Immature Granulocytes Auto 0.01 Thou/mm3 (0.00-0.00); Lymphocytes # (Auto) 1.0 Thou/mm3 (1.0-4.8); Lymphocytes % (Auto) 15 % (10-50); Mean Corpuscular HGB Conc 32.6 g/dl (31.0-37.0); Mean Corpuscular Hemoglobin 25.3 pg (25.0-35.0); Mean Corpuscular Volume 78 fL (80-100); Monocytes # (Auto) 0.3 Thou/mm3 (0.0-0.8); Monocytes % (Auto) 5 % (0-12); Neutrophils # (Auto) 5.6 Thou/mm3 (1.8-7.7); Neutrophils % (Auto) 80 % (37-80); Nucleated Red Blood Cell # 0.00 Thou/mm3 (0.00-0.00); Nucleated Red Blood Cell % 0 /100 WBC (0); Platelet Count 218 Thou/mm3 (140-440); RDW Standard Deviation 41.5 fL (36.4-46.3); Red Blood Count 4.59 Miln/mm3 (4.00-5.20); White Blood Count 7.0 Thou/mm3 (3.6-11.0)
[2024-10-24 15:37] LABS: HCG,Qualitative Serum Negative
--- NOTE | 2024-10-24 15:40 | XR_ITS ---
Examination: Pelvic ultrasound, transabdominal, complete Technique: Transabdominal ultrasound of the pelvis performed using grayscale imaging Date and time of exam: October 24, 2024 1613 hours INDICATIONS: Right pelvic pain today FINDINGS: Uterus 9.3 cm endometrial stripe 0.2 cm Right ovary 3.2 cm arterial flow Left ovary 3.1 cm arterial flow 16mm follicular cyst IMPRESSION: No uterine mass or intrauterine gestation Left ovarian follicular cyst 16 x 12 mm
[2024-10-24 15:45] LABS: B-Type Natriuretic Peptide 37 pg/mL (0-100); T4 (Thyroxine) 7.5 mcg/dL (4.5-10.9)
[2024-10-24 15:53] LABS: Alanine Aminotransferase < 7 U/L (10-49); Albumin, Serum 4.6 gm/dL (3.5-5.0); Albumin/Globulin Ratio 1.6 (1.2-2.2); Alkaline Phosphatase 62 U/L (46-116); Anion Gap 9 (7-16); Aspartate Amino Transferase 16 U/L (0-34); BUN/Creatinine Ratio 16 Ratio (12-20); Bilirubin,Total 0.4 mg/dL (0.3-1.2); Blood Urea Nitrogen 11 mg/dL (9-23); Calcium 9.5 mg/dL (8.3-10.6); Calcium (Corrected) 9.5 mg/dL (8.5-10.1); Carbon Dioxide 24.3 mMol/L (20.0-31.0); Chloride 108 mMol/L (98-107); Creatine Kinase 49 U/L (34-171); Creatinine (Component) 0.7 mg/dL (0.6-1.3); Estimated Creatinine Clearance 97.8 mL/min (>60); Globulin 2.9 gm/dL (2.3-3.5); Glucose 106 mg/dL (74-106); Osmolality,Calculated 280 (275-295); Potassium 4.2 mMol/L (3.4-5.1); Sodium 141 mMol/L (136-145); Thyroid Stimulating Hormone 0.78 uIU/mL (0.55-4.78); Total Protein 7.5 gm/dL (5.7-8.2); Troponin I < 0.002 ng/mL (0.0-0.045); eGFR > 60 See Note
[2024-10-24] MEDS: ACETAMINOPHEN 325 MG TABLET 650 MG PO (16:03)
[2024-10-24 16:33] LABS: HIV Rapid (Source Pt) Non-Reactive
[2024-10-24 16:45] LABS: Syphilis Nonreactive (Nonreactive)
[2024-10-24 17:10] VITALS: BP 115/77; PULSE 72; RESP 17; TEMP 36.9; O2SAT 100
[2024-10-25 09:10] LABS: Chlamydia trachomatis PCR Negative (Not Detect); Neisseria Gonorrhoeae DNA PCR Negative (Not Detect); Trichomonas Negative (Negative)
== END 2024-10-24 17:48 | disposition home or self-care (01) ==
PROVIDERS: Emergency Provider Emergency Medicine; PCP Physician Assistant
DX: R42 Dizziness and giddiness (principal); N83.02 Follicular cyst of left ovary; R07.9 Chest pain, unspecified; R94.31 Abnormal electrocardiogram [ECG] [EKG]
CPT/HCPCS: 36415; 71045; 76856; 80053; 80307; 81001; 82550; 83880; 84436; 84443; 84484; 84703; 85025; 86780; 87086; 87491; 87591; 87661; 93005; 99284; A9270

== ENCOUNTER 2024-10-30 16:46 | Emergency (ER) | payer MEDICAID, SELFPAY ==
[2024-10-30 16:49] VITALS: BP 126/72; PULSE 105; RESP 19; TEMP 37.3; O2SAT 100
--- NOTE | 2024-10-30 16:53 | EKG_ITS ---
[facility] Test Date: 2024-10-30 Pat Name: FRANCESCO DUNCAN Department: Room: - Gender: Female Tank Builder: : 1990 Requested By: ED Temporary Provider Order Number: [id number] Reading MD: ED Temporary Provider Measurements Intervals [place] Rate: 90 P: 60 CA: 124 QRS: 89 QRSD: 94 T: 60 QT: 346 QTc: 425 Interpretive Statements SINUS RHYTHM WITH SINUS ARRHYTHMIA NONSPECIFIC T-WAVE ABNORMALITY Compared to ECG 10/24/2024 14:42:22 T-wave abnormality now present /store/[id number]
[2024-10-30 16:57] VITALS: PULSE 98; RESP 18; O2SAT 99; BMI 22.3
--- NOTE | 2024-10-30 17:32 | EDNOTE_ITS ---
ED Dizzyness RME/HPI General Chief Complaint: Dizziness Stated Complaint: DIZZY Time Seen by Provider: 10/30/24 17:30 Arrival date/time: 10/30/24 16:46 RME / HPI RME / HPI Narrative: 34-year-old female patient with past medical history of prolactin-related hormonal imbalance was brought in by EMS for evaluation regarding sudden onset of dizziness. Onset of symptoms about several minutes prior to ER visit as vertigo, severity moderate. Denies any vomiting. Denies any neck pain denies any headache denies any focal neurologic deficit. Patient had meclizine prior to ER visit. No fever noted no chest pain no abdominal pain. Related Data Home Medications ?Medication ?Instructions ?Recorded ?Confirmed albuterol sulfate 90 mcg/actuation 2 puff inhalation Q 6H PRN 12/02/18 05/28/21 aerosol inhaler Shortness Of Breath Or Wheez ing meclizine 25 mg tablet 25 mg PO BID PRN Dizziness 0 05/28/21 05/28/21 Previous Rx's ?Medication ?Instructions ?Recorded meclizine 50 mg tablet 50 mg PO BID PRN motion sick ness 05/28/21 #14 tabs oxcarbazepine 300 mg tablet 300 mg PO BID #60 tabs rizatriptan 10 mg disintegrating See Rx Instructions P O .COMPLEX 10/21/22 tablet (Maxalt-CUTTING TABLE OPERATOR) #30 tabs meclizine 25 mg tablet 25 mg PO TID PRN dizziness # 14 tabs 10/28/22 ondansetron 4 mg disintegrating 4 mg PO Q8H PRN nausea and 10/28/22 tablet vomiting #10 tabs meclizine 25 mg tablet 25 mg PO QDAY PRN dizziness #20 02/13/23 tabs meclizine 25 mg tablet 25 mg PO QDAY PRN dizziness #20 08/21/23 tabs ibuprofen 600 mg tablet 600 mg PO Q6H #30 tabs 10/31 ondansetron 4 mg disintegrating 4 mg PO Q6H PRN nausea and 11/01/23 tablet vomiting #14 tabs scopolamine base 1 mg over 3 days 1 mg topical .Q3Day #10 ea 03/07/24 transdermal patch (Transderm-Scop) alprazolam 0.5 mg tablet (Xanax) 0.5 mg PO BID PRN anx iety #14 tabs 04/12/24 Allergies Allergy/AdvReac Type Severity Reaction Status Date / Time ciprofloxacin Allergy Severe RASH Verified 10/24/24 14:33 Review of Systems Review of Systems Narrative Review of Systems: Review of system reviewed and within normal limits except mentioned in HPI ED Exam Narrative Physical exam: VITAL SIGNS: Reviewed. GENERAL APPEARANCE: Alert and interactive, follows commands, no acute distress, HEAD AND FACE: Non-traumatic. ENT: PERRL, pink conjunctivitis, eyelid no trauma, Mucous membrane moist. NECK: Supple, nontender, no nuchal rigidity. CHEST: No tenderness, no crepitus, no paradoxical movement, no retractions. LUNGS: Clear, well ventilated, symmetric, no rales, no wheezing, no ronchi, no stridor, good breath sounds bilaterally. HEART: Regular rate, regular rhythm, no murmur, no gallops. ABDOMEN: Soft, positive bowel sounds, nondistended, no guarding, nontender, no rebound, no masses, RECTAL: Deferred. GENITAL: Deferred. NEUROLOGICAL: Gross motor function intact sensory function intact, Appropriate for age. MUSCULOSKELETAL: low back nontender, full range of motion. EXTREMITIES: Nontender, full range of motion. SKIN: Color pink, dry, no rash, no lacerations, no abrasions, no contusions. LYMPHATICS: Deferred. Course Quality Measures none Orders Category Date Time Status EKG (ED ONLY) *Do not use* NOW Care 10/30/24 16:53 Completed EKG (ED Only) Stat Exams 10/30/24 16:53 Draft CBC [CBC] Stat Lab 10/30/24 17:42 Completed CMP [Comprehensive Metabolic Panel] Stat Lab 10/30/24 17:42 Completed HCG Qualitative,Urine Stat Lab 10/30/24 17:46 Completed UA, C/S IF [Urinalysis, C/S if Indicated] Stat Lab 10/30/24 17:46 Completed Ringers Lactated 1000 ml [Lactated Ringers] 1,000 ml Med 10/30/24 17:30 Discontinued IV 999 mls/hr Vital Signs Vital signs: Vital Signs Temperature 99.1 F 10/30/24 16:49 Pulse Rate 105 H 10/30/24 16:49 Respiratory Rate 19 10/30/24 16:49 Blood Pressure 126/72 10/30/24 16:49 Pulse Oximetry (%) 100 10/30/24 16:49 Oxygen Delivery Method Room Air 10/30/24 16:49 Dizziness [facility] Narrative [facility] Narrative:: 34-year-old female patient was brought in by EMS for evaluation regarding sudden onset of dizziness. Onset of symptoms about several minutes prior to ER visit as vertigo, severity moderate. Denies any vomiting. Denies any neck pain denies any headache denies any focal neurologic deficit. Patient had meclizine prior to ER visit. No fever noted no chest pain no abdominal pain. EKG showed sinus rhythm, ventricular rate of 90 bpm, no ST segment elevation or depression noted. Patient's workup in UNREMARKABLE. Patient received IV fluids. With significant improvement of symptoms. Patient data External records reviewed:: None Clinical information provided by:: patient Social determinants that could affect healthcare access:: none Patient has the following chronic illnesses:: Prolactin related hormonal imbalances How is presenting disease/condition affected by chronic disease/condition?: exacerbated by Evaluation data The following diagnostics were reviewed and interpreted by me:: lab results and EKG tracing(s) Lab and/or radiology exams considered but not ordered:: None Interpretation Summary: See results [facility] Medications / Prescriptions Medications or Prescriptions considered but not ordered:: None Medication administrations:: Medication Administration History Discontinued Medications Lactated Ringer's (Lactated Ringers) 1,000 mls @ 999 mls/hr IV .Q1H1M ONE Stop: 10/30/24 18:30 Last Infusion: 10/30/24 18:45 Dose: Infused Documented By: Admin: 10/30/24 17:44 Dose: 999 mls/hr Documented By: VG IV fluids Consultations Consultation(s) initiated? (list below): No Diagnosis Dizziness Differential Diagnosis: orthostatic hypotension and other (Dizziness) Most likely diagnosis given after review of the tests above:: Patient is Admission Indicated Admission indicated?: not indicated Explain why admission is indicated or not indicated:: Stable Admission Request Was there a request for admission?: No Disposition Plan Disposition Plan: Discharge Discharge Attestation Discharge Attestation: The patient was given an opportunity to ask questions and understood the discharge instructions. Discharge instructions specifically effects, indications for sooner follow up or return to the emergency department, and the expected course of current diagnosis. Patient condition: Stable Discharge Plan Plan Patient Disposition: HOME (Self Care) Discharge Disposition comment: Stable Prescriptions/Referrals Prescriptions/Med Rec: No Action albuterol sulfate 90 mcg/actuation HFA aerosol inhaler 2 puff INH Q6H PRN (Reason: Shortness Of Breath Or Wheezing) meclizine 25 mg Tablet 25 mg PO BID PRN (Reason: Dizziness) meclizine 50 mg tablet 50 mg PO BID PRN (Reason: motion sickness) Qty: 14 0RF oxcarbazepine 300 mg tablet 300 mg PO BID Qty: 60 0RF rizatriptan [Maxalt-CUTTING TABLE OPERATOR] 10 mg tablet,disintegrating See Rx Instructions .ROUTE .COMPLEX Qty: 30 0RF Rx Instructions: take 1 tab at onset of headache; if no relief may repeat 1 tab after at least 2 hrs; max = 3 tabs/24 hr meclizine 25 mg tablet 25 mg PO QDAY PRN (Reason: dizziness) Qty: 20 0RF meclizine 25 mg tablet 25 mg PO QDAY PRN (Reason: dizziness) Qty: 20 0RF alprazolam [Xanax] 0.5 mg tablet 0.5 mg PO BID PRN (Reason: anxiety) Qty: 14 0RF meclizine 25 mg tablet 25 mg PO TID PRN (Reason: dizziness) Qty: 14 0RF ondansetron 4 mg tablet,disintegrating 4 mg PO Q8H PRN (Reason: nausea and vomiting) Qty: 10 0RF ibuprofen 600 mg tablet 600 mg PO Q6H Qty: 30 0RF ondansetron 4 mg tablet,disintegrating 4 mg PO Q6H PRN (Reason: nausea and vomiting) Qty: 14 0RF scopolamine base [Transderm-Scop] 1 mg over 3 days patch 3 day 1 mg topical .Q3Day Qty: 10 0RF Referrals: Sushila Valdez PA-C [Primary Care Provider] - In 1 week Problem List Clinical Impression: Dizziness Patient/Caregiver Discharge Instructions Discharge Activity: activity as tolerated Education Materials: ED Dizziness, Uncertain Cause Additional Instructions: Thank you for the opportunity for serving you today. You are stable for discharged . You are advised to: Follow-up with your PCP in 1 to 2 days Return to ED for worsening of symptoms Increase oral fluids Print Language: Burmese Stand Alone Forms: Graciela Award Info., Patient Portal Info Letter PA/INVESTMENT BANKING ANALYST Supervising Physician PA/INVESTMENT BANKING ANALYST Supervising Physician: MD Mati
[2024-10-30] MEDS: RINGERS LACTATED 1000 ML 1,000 ML 999 ML IV (17:44)
[2024-10-30 17:49] LABS: Basophils # (Auto) 0.0 Thou/mm3 (0.0-0.2); Basophils % (Auto) 1 % (0-2.5); Eosinophils # (Auto) 0.1 Thou/mm3 (0.0-0.5); Eosinophils % (Auto) 1 % (0-10); Hematocrit 37.5 % (36.0-46.0); Hemoglobin 11.9 g/dL (12.0-16.0); Immature Granulocytes Auto 0.01 Thou/mm3 (0.00-0.00); Lymphocytes # (Auto) 1.3 Thou/mm3 (1.0-4.8); Lymphocytes % (Auto) 21 % (10-50); Mean Corpuscular HGB Conc 31.7 g/dl (31.0-37.0); Mean Corpuscular Hemoglobin 24.7 pg (25.0-35.0); Mean Corpuscular Volume 78 fL (80-100); Monocytes # (Auto) 0.3 Thou/mm3 (0.0-0.8); Monocytes % (Auto) 5 % (0-12); Neutrophils # (Auto) 4.7 Thou/mm3 (1.8-7.7); Neutrophils % (Auto) 72 % (37-80); Nucleated Red Blood Cell # 0.00 Thou/mm3 (0.00-0.00); Nucleated Red Blood Cell % 0 /100 WBC (0); Platelet Count 190 Thou/mm3 (140-440); RDW Standard Deviation 41.9 fL (36.4-46.3); Red Blood Count 4.82 Miln/mm3 (4.00-5.20); White Blood Count 6.4 Thou/mm3 (3.6-11.0)
[2024-10-30 17:51] LABS: Collection Type, Urine Clean Catch
[2024-10-30 17:56] LABS: HCG Qualitative,Urine Negative
[2024-10-30 17:58] LABS: Bacteria,Urine Rare; Bilirubin,Urine Negative (Negative); Blood,Urine 2+ (Negative); Color,Urine Lt-Yellow (Lt Yel-Yel); Culture Indicated,Urine Not Indicated; Glucose, Urine Negative (Negative); Ketones,Urine Negative (Negative); Leukocyte Esterase,Urine Positive (Negative); Nitrite,Urine Negative (Negative); PH,Urine 7.5 (5.0-7.0); Protein,Urine Trace (Neg - Trace); RBC,Urine 16 /hpf (0-3); Specific Gravity,Urine 1.020 (1.001-1.035); Squamous Epithelial Cell,Urine 39 /hpf (0-5); Urobilinogen,Urine Negative mg/dL (0.0-1.0); WBC,Urine 10 /hpf (0-5)
[2024-10-30 18:01] LABS: Clarity,Urine Hazy (Clear/Hazy)
[2024-10-30 18:16] LABS: Alanine Aminotransferase < 7 U/L (10-49); Albumin, Serum 4.9 gm/dL (3.5-5.0); Albumin/Globulin Ratio 1.6 (1.2-2.2); Alkaline Phosphatase 64 U/L (46-116); Anion Gap 10 (7-16); Aspartate Amino Transferase 16 U/L (0-34); BUN/Creatinine Ratio 14 Ratio (12-20); Bilirubin,Total 0.4 mg/dL (0.3-1.2); Blood Urea Nitrogen 11 mg/dL (9-23); Calcium 10.0 mg/dL (8.3-10.6); Calcium (Corrected) 10.0 mg/dL (8.5-10.1); Carbon Dioxide 22.0 mMol/L (20.0-31.0); Chloride 108 mMol/L (98-107); Creatinine (Component) 0.8 mg/dL (0.6-1.3); Estimated Creatinine Clearance 85.6 mL/min (>60); Globulin 3.1 gm/dL (2.3-3.5); Glucose 104 mg/dL (74-106); Osmolality,Calculated 278 (275-295); Potassium 3.4 mMol/L (3.4-5.1); Sodium 140 mMol/L (136-145); Total Protein 8.0 gm/dL (5.7-8.2); eGFR > 60 See Note
[2024-10-30 18:54] VITALS: BP 106/69; PULSE 72; RESP 17; TEMP 37.1; O2SAT 100
[2024-10-30 20:27] VITALS: BP 110/64; PULSE 73; RESP 18; O2SAT 100
== END 2024-10-30 20:28 | disposition home or self-care (01) ==
PROVIDERS: Nurse Practitioner Family; Emergency Provider Emergency Medicine; PCP Physician Assistant
DX: R42 Dizziness and giddiness (principal); I49.8 Other specified cardiac arrhythmias
CPT/HCPCS: 36415; 80053; 81001; 81025; 85025; 93005; 96360; 99283; J7120